=== PATIENT | male | born 1975 | race Caucasian/White ===

== ENCOUNTER 2021-03-31 03:53 | Inpatient (IN) | payer OTHER, SELFPAY ==
[2021-03-31] VITALS (9 sets, daily range): BP systolic 127–190; BP diastolic 77–90; PULSE 67–100; RESP 15–20; TEMP 36.1–38.4; O2SAT 97–100; BMI 27.3
--- NOTE | 2021-03-31 | ECG_ITS ---
Test Reason : SOB Blood Pressure : / mmHG Vent. Rate : 093 BPM Atrial Rate : 093 BPM P-R Int : 130 ms QRS Dur : 082 ms QT Int : 468 ms P-R-T Axes : -17 -65 022 degrees QTc Int : 581 ms Normal sinus rhythm Left axis deviation Septal infarct , age undetermined Inferior infarct , age undetermined Prolonged QT Abnormal ECG No previous ECGs available Referred By: Generic ED Physician Electronically Signed By:EFRAIN WOODWARD
--- NOTE | ~2021-03-31 | CT_ITS ---
EXAMINATION CT CHEST, ABDOMEN AND PELVIS WITHOUT CONTRAST CLINICAL INFORMATION: Shortness of breath and abdominal pain. Approximately 2-3 months of subjective fevers and malaise. COMPARISON: None. TECHNIQUE: Multidetector volumetric CT imaging of the chest, abdomen and pelvis was performed without the use of intravenous contrast. Coronal and sagittal reformats were reviewed. This CT examination was performed using dose optimization techniques as appropriate, variously including the following: *Automated exposure control *Adjustment of mA and/or kV according to patient size (this includes techniques or standardized protocols for targeted exams where dose is matched to indication/reason for exam; i.e. extremities or head) *Use of iterative reconstruction technique DLP: 840 mGy-cm. FINDINGS: CHEST LUNGS/PLEURA: There is a large cavitary process within the right upper lobe, subpleural in location measuring approximately 6.2 x 3.7 x 3.2 cm. There is surrounding patchy groundglass opacity. There is diffuse mild bronchial wall thickening, most pronounced within the right upper lobe leading up to the cavitary process with scattered endobronchial secretions. Remainder of the lungs clear. There is no pleural effusion. No pneumothorax. MEDIASTINUM/AMOL: Right hilar lymphadenopathy present measuring up to 1 cm short axis. Small mediastinal lymph nodes do not size criteria for enlargement. Normal heart size. No pericardial effusion. CHEST WALL/AXILLA: Unremarkable. ABDOMEN/PELVIS HEPATOBILIARY: Liver normal in size, contour and morphology. No suspicious lesions. No intra or extrahepatic biliary dilation. Gallbladder unremarkable. PANCREAS: Atrophic. Mild fat stranding within the retroperitoneum does not appear to be specific to the pancreas. SPLEEN: Unremarkable. ADRENAL GLANDS: Unremarkable. KIDNEYS, URETERS AND BLADDER: Kidneys normal in size, axis and morphology demonstrating symmetric enhancement. No hydronephrosis or urinary calculi. Mild bilateral perinephric stranding, nonspecific. Ureters normal in course and caliber. Bladder grossly unremarkable.. GASTROINTESTINAL TRACT: No bowel related abnormalities. PELVIC VISCERA: Unremarkable. LYMPH NODES: No lymphadenopathy. PERITONEUM/BODY WALL: Unremarkable. VASCULAR STRUCTURES: Aorta is mildly atherosclerotic. OSSEOUS STRUCTURES No acute or suspicious osseous abnormalities. Bilateral L5 spondylolysis associated with grade 1 anterolisthesis of L5 on S1 and severe discogenic degenerative disease with endplate sclerosis and vacuum disc phenomenon, the latter showing high negative predictive value for spondylodiscitis. CT/CT abdomen pelvis wo con IMPRESSION: * Large cavitary process within right upper lobe, suspected to be infectious in nature. Fungal etiologies, and certain bacterial infections (eg actinomycosis, nocardiosis, tuberculosis) can have this appearance. Malignancy is considered less likely. Right hilar adenopathy favored reactive. * No acute findings within the abdomen or pelvis. * Nonspecific mild bilateral perinephric stranding and fat stranding within the retroperitoneum. Per report, the patient may be in renal failure which could lead to these findings. Also, correlate with lipase is the possibility of mild pancreatitis is also considered. This result was discussed with Divina Dinh MD at 03/31/2021 6:10AM and it was ascertained that the content and urgency of the report was understood at the time of direct communication.
--- NOTE | ~2021-03-31 | XR_ITS ---
EXAMINATION: XR CHEST CLINICAL INFORMATION: Status post bronchial biopsy COMPARISON: CT scan and plain film studies of March 31, 2021 TECHNIQUE: AP portable view of the chest was obtained. FINDINGS: There is again noted to be region of airspace disease about the mid peripheral right lung as well some loss of lung volume and atelectasis within the lower right lung. No pneumothorax or significant pleural effusion appreciated. Left hemithorax unremarkable. Heart normal size. No evidence of pulmonary edema. XR/XR chest 1V IMPRESSION: Right lung disease as described. No pneumothorax.
--- NOTE | ~2021-03-31 | XR_ITS ---
EXAMINATION: XR CHEST CLINICAL INFORMATION: Chest pain COMPARISON: None available TECHNIQUE: Frontal view of the chest was obtained. FINDINGS: Patchy opacity within the periphery of the right midlung. Left lung clear. No pleural effusion or pneumothorax. Normal heart size and pulmonary vascularity. XR/XR chest 1V IMPRESSION: Nonspecific opacity within the periphery of the right midlung. Considerations include pneumonia, atypical or granulomatous infectious/inflammatory process, mass or pulmonary infarct A CT examination is pending at the time of this dictation.
[2021-03-31 04:04] LABS: Glucose, Whole Blood 425 mg/dL (60-115)
--- NOTE | 2021-03-31 04:17 | ED_ITS ---
HPI - SOB/Dyspnea General Chief Complaint: Dyspnea Stated Complaint: sob,hypergglycemia,and cough Time Seen by Provider: 03/31/21 04:07 Source: patient Mode of arrival: EMS History of Present Illness HPI Narrative: 45-year-old male arrives via EMS with significantly worsening and progressive worsening of shortness of breath for ?months?, he was started on antibiotics for a ?lung infection? but cannot recall without medication was. In addition, patient reports cough of greenish/yellowish sputum and significant pain on coughing. Otherwise, patient denies any GI or symptoms. Related Data Home Medications Medication Instructions Recorded Confirmed amlodipine 5 mg tablet 1 tab PO DAILY 03/31/21 03/31/21 aspirin 81 mg tablet,delayed 1 tab PO DAILY 03/31/21 03/31/21 release cyclosporine 0.05 % eye drops in a 1 drp OPHTHALMIC (EYE) BID 03/31/21 03/31/21 dropperette (Restasis) gabapentin 300 mg capsule 1 cap PO DAILY 03/31/21 03/31/21 gabapentin 600 mg tablet 1 tab PO BID 03/31/21 03/31/21 insulin aspart U-100 100 unit/mL SUBCUT 03/31/21 (3 mL) subcutaneous pen (Novolog Flexpen U-100 Insulin aspart) insulin glargine 100 unit/mL (3 30 unit SUBCUT BEDTIME 03/31/21 03/31/21 mL) subcutaneous pen (Lantus Solostar U-100 Insulin) lisinopril 20 1 tab PO DAILY 03/31/21 03/31/21 mg-hydrochlorothiazide 25 mg tablet omeprazole 20 mg capsule,delayed 1 cap PO QAM 03/31/21 03/31/21 release Allergies Allergy/AdvReac Type Severity Reaction Status Date / Time No Known Allergies Allergy Verified 03/31/21 04:00 Review of Systems Review of Systems: Pertinent positives and negatives as stated in HPI 10 point review of systems is otherwise negative. [facility] Past Medical History Source: nursing notes reviewed Social History Social History Advance Directives: No Physical Exam Vital Signs: Vital Signs: Last Vital Signs Temp 101.2 F H 03/31/21 04:03 Pulse 88 03/31/21 04:32 Resp 20 03/31/21 04:32 BP 166/87 H 03/31/21 04:32 Pulse Ox 99 03/31/21 04:32 BMI result Body Mass Index 27.3 VITAL SIGNS: Reviewed. GENERAL: Well developed, in moderate to severe distress. HEAD: Normocephalic/atraumatic EYES: PERRLA, EOMI OROPHARYNX: no oral lesions noted, posterior pharynx clear LUNGS: Bilateral decreased breath sounds, no expiratory wheeze noted or rales, but patient is tachypneic and unable to complete entire sentences. SpO2<98> CARDIOVASCULAR: Regular rate and rhythm without noted murmurs, no JVD or lower extremity edema. ABDOMEN: Soft, non-tender, non-distended with bowel sounds. SKIN: Inspection of the skin reveals no rashes NEUROLOGIC: Alert and oriented x 4. Strength and sensation to light touch were grossly intact x 4. Course Course Course Narrative: 45-year-old male with history and clinical presentation concerning for possible bilateral pneumonia with pleural effusion or possible pulmonary edema. Although patient is hyperglycemic this is likely in response to underlying infection. Review of all investigations demonstrates possible combination of pneumonia and concerns for endocarditis due to duration and length of patient's symptoms with concomitant fevers, chills. Patient being treated with IV fluids and no evidence of DKA or HHS, but patient also has hypokalemia as well as hypo magnesemia and denies any history of IVDA use. I discussed this case with the inpatient hospitalist who accepts admission. MDM - SOB/Dyspnea Lab Data Result diagrams: 03/31/21 04:12 03/31/21 04:12 Labs: Lab Results 03/31/21 03/31/21 03/31/21 Range/Units 04:00 04:12 04:12 WBC 10.2 (4.8-10.8) X10*3/uL RBC 3.85 L (4.60-5.80) X10*6/uL Hgb 10.5 L (14.0-18.0) g/dl Hct 31.4 L (42.0-52.0) % MCV 81.6 (80.0-98.0) fL MCH 27.3 (27.0-33.0) pg MCHC 33.4 (31.0-36.0) g/dl RDW 14.4 (11.0-16.0) % Plt Count 212 (160-400) X10*3/uL MPV 10.3 (9.4-12.4) fL Immature Gran % (Auto) 0.3 (0.0-0.4) % Neut % (Auto) 79.8 H (45-73) % Lymph % (Auto) 12.3 L (20-40) % [place] % (Auto) 6.1 (2-11) % Eos % (Auto) 1.1 (0-4) % Baso % (Auto) 0.4 (0-2) % Lymph # (Auto) 1.3 (1.2-4.9) X10*3/uL [place] # (Auto) 0.6 (0.1-1.2) X10*3/uL Eos # (Auto) 0.1 (0.0-0.4) X10*3/uL Baso # (Auto) 0.0 (0.0-0.2) X10*3/uL Abs Immat Gran (auto) 0.03 (0.00-0.03) X10*3/uL Absolute Neuts (auto) 8.2 (2.0-8.3) x10*3/uL Absolute Nucleated RBC 0.000 (0.0-0.012) X10*3/uL Nucleated RBC % (auto) 0.0 (0.0-0.2) /100WBC D-Dimer High Sensitivty NG/ML VBG pH (7.32-7.43) VBG pCO2 mmHg VBG pO2 mmHg VBG HCO3 (22-26) mmol/L VBG O2 Saturation % VBG Base Excess mmol/L Sodium 133 L (135-145) mmol/L Potassium 3.1 L (3.3-5.1) mmol/L Chloride 94 L (96-108) mmol/L Carbon Dioxide 28 (22-29) mmol/L Anion Gap 14 (12-20) BUN 25 H (9-16) mg/dL Creatinine 1.46 H (0.5-1.4) mg/dL Estim Creat Clear Calc 61.1 Estimated GFR 52 POC Glucose 425 H* (60-115) mg/dL Random Glucose 441 H* (60-115) mg/dL Lactic Acid (0.5-2.0) mmol/L Calcium 7.9 L (8.4-10.2) mg/dL Magnesium 1.3 L* (1.6-2.6) mg/dL Total Bilirubin 0.7 (0.0-1.0) mg/dL AST 7 (5-37) U/L ALT < 6 (0-40) U/L Alkaline Phosphatase 171 H (39-117) U/L Troponin I High Sens (<3.5-35.0) ng/L B-Natriuretic Peptide (<100) pg/mL Total Protein 6.2 L (6.5-8.0) g/dL Albumin 2.8 L (3.5-5.0) g/dL Acetone, Qual Negative (Negative) COVID-19 (ANA M) (Negative) COVID-19 Clin Com 03/31/21 03/31/21 03/31/21 Range/Units 04:12 04:12 04:12 WBC (4.8-10.8) X10*3/uL RBC (4.60-5.80) X10*6/uL Hgb (14.0-18.0) g/dl Hct (42.0-52.0) % MCV (80.0-98.0) fL MCH (27.0-33.0) pg MCHC (31.0-36.0) g/dl RDW (11.0-16.0) % Plt Count (160-400) X10*3/uL MPV (9.4-12.4) fL Immature Gran % (Auto) (0.0-0.4) % Neut % (Auto) (45-73) % Lymph % (Auto) (20-40) % [place] % (Auto) (2-11) % Eos % (Auto) (0-4) % Baso % (Auto) (0-2) % Lymph # (Auto) (1.2-4.9) X10*3/uL [place] # (Auto) (0.1-1.2) X10*3/uL Eos # (Auto) (0.0-0.4) X10*3/uL Baso # (Auto) (0.0-0.2) X10*3/uL Abs Immat Gran (auto) (0.00-0.03) X10*3/uL Absolute Neuts (auto) (2.0-8.3) x10*3/uL Absolute Nucleated RBC (0.0-0.012) X10*3/uL Nucleated RBC % (auto) (0.0-0.2) /100WBC D-Dimer High Sensitivty < 150 NG/ML VBG pH (7.32-7.43) VBG pCO2 mmHg VBG pO2 mmHg VBG HCO3 (22-26) mmol/L VBG O2 Saturation % VBG Base Excess mmol/L Sodium (135-145) mmol/L Potassium (3.3-5.1) mmol/L Chloride (96-108) mmol/L Carbon Dioxide (22-29) mmol/L Anion Gap (12-20) BUN (9-16) mg/dL Creatinine (0.5-1.4) mg/dL Estim Creat Clear Calc Estimated GFR POC Glucose (60-115) mg/dL Random Glucose (60-115) mg/dL Lactic Acid (0.5-2.0) mmol/L Calcium (8.4-10.2) mg/dL Magnesium (1.6-2.6) mg/dL Total Bilirubin (0.0-1.0) mg/dL AST (5-37) U/L ALT (0-40) U/L Alkaline Phosphatase (39-117) U/L Troponin I High Sens 14.5 (<3.5-35.0) ng/L B-Natriuretic Peptide 42 (<100) pg/mL Total Protein (6.5-8.0) g/dL Albumin (3.5-5.0) g/dL Acetone, Qual (Negative) COVID-19 (ANA M) Negative (Negative) COVID-19 Clin Com See Note 03/31/21 03/31/21 Range/Units 04:12 04:17 WBC (4.8-10.8) X10*3/uL RBC (4.60-5.80) X10*6/uL Hgb (14.0-18.0) g/dl Hct (42.0-52.0) % MCV (80.0-98.0) fL MCH (27.0-33.0) pg MCHC (31.0-36.0) g/dl RDW (11.0-16.0) % Plt Count (160-400) X10*3/uL MPV (9.4-12.4) fL Immature Gran % (Auto) (0.0-0.4) % Neut % (Auto) (45-73) % Lymph % (Auto) (20-40) % [place] % (Auto) (2-11) % Eos % (Auto) (0-4) % Baso % (Auto) (0-2) % Lymph # (Auto) (1.2-4.9) X10*3/uL [place] # (Auto) (0.1-1.2) X10*3/uL Eos # (Auto) (0.0-0.4) X10*3/uL Baso # (Auto) (0.0-0.2) X10*3/uL Abs Immat Gran (auto) (0.00-0.03) X10*3/uL Absolute Neuts (auto) (2.0-8.3) x10*3/uL Absolute Nucleated RBC (0.0-0.012) X10*3/uL Nucleated RBC % (auto) (0.0-0.2) /100WBC D-Dimer High Sensitivty NG/ML VBG pH 7.60 H* (7.32-7.43) VBG pCO2 26 mmHg VBG pO2 127 mmHg VBG HCO3 26 (22-26) mmol/L VBG O2 Saturation 100.0 % VBG Base Excess 5.6 mmol/L Sodium (135-145) mmol/L Potassium (3.3-5.1) mmol/L Chloride (96-108) mmol/L Carbon Dioxide (22-29) mmol/L Anion Gap (12-20) BUN (9-16) mg/dL Creatinine (0.5-1.4) mg/dL Estim Creat Clear Calc Estimated GFR POC Glucose (60-115) mg/dL Random Glucose (60-115) mg/dL Lactic Acid 1.8 (0.5-2.0) mmol/L Calcium (8.4-10.2) mg/dL Magnesium (1.6-2.6) mg/dL Total Bilirubin (0.0-1.0) mg/dL AST (5-37) U/L ALT (0-40) U/L Alkaline Phosphatase (39-117) U/L Troponin I High Sens (<3.5-35.0) ng/L B-Natriuretic Peptide (<100) pg/mL Total Protein (6.5-8.0) g/dL Albumin (3.5-5.0) g/dL Acetone, Qual (Negative) COVID-19 (ANA M) (Negative) COVID-19 Clin Com ECG Data Attestation: I personally reviewed and interpreted this ECG as follows: Prior ECG tracings: not available for review Interpretation: NSR, HR-93, noted Q-waves in lead II/aVF, no STEMI, MA/QRS are within normal limits Critical Care Time Critical Care Time Critical Care Time: Yes Total Critical Care Time: 30 Attestation: I personally attest to this time spent taking care of the patient. Discharge Plan Discharge Clinical Impression: Sepsis, Hyperglycemia, NEELA (acute kidney injury), Hypomagnesemia, Hypokalemia Patient Disposition: Admitted As Inpatient
[2021-03-31 04:20] LABS: Basophils Percent Auto 0.4 % (0-2); Eosinophils Absolute Auto 0.1 X10*3/uL (0.0-0.4); Eosinophils Percent Auto 1.1 % (0-4); Hematocrit 31.4 % (42.0-52.0); Hemoglobin 10.5 g/dl (14.0-18.0); Imm Gran Abs Auto 0.03 X10*3/uL (0.00-0.03); Imm Gran Pct Auto 0.3 % (0.0-0.4); Lymphocytes Absolute Auto 1.3 X10*3/uL (1.2-4.9); Lymphocytes Percent Auto 12.3 % (20-40); MANUAL DIFF FLAG NO; Mean Corpuscular HGB Conc 33.4 g/dl (31.0-36.0); Mean Corpuscular Hemoglobin 27.3 pg (27.0-33.0); Mean Corpuscular Volume 81.6 fL (80.0-98.0); Mean Platelet Volume 10.3 fL (9.4-12.4); Monocytes Absolute Auto 0.6 X10*3/uL (0.1-1.2); Monocytes Percent Auto 6.1 % (2-11); Neutrophils Absolute Auto 8.2 x10*3/uL (2.0-8.3); Neutrophils Percent Auto 79.8 % (45-73); Platelet Count 212 X10*3/uL (160-400); Red Blood Count 3.85 X10*6/uL (4.60-5.80); Red Cell Distribution Width 14.4 % (11.0-16.0); White Blood Count 10.2 X10*3/uL (4.8-10.8)
[2021-03-31] MEDS: 0.9 % Sodium Chloride 2,000 ML 999 ML IV (04:23)
[2021-03-31] MEDS: Acetaminophen 325 MG TABLET 975 MG PO (04:24)
--- NOTE | 2021-03-31 04:24 | ECG_ITS ---
Test Reason : CP Blood Pressure : / mmHG Vent. Rate : 086 BPM Atrial Rate : 086 BPM P-R Int : 160 ms QRS Dur : 088 ms QT Int : 420 ms P-R-T Axes : 018 -33 027 degrees QTc Int : 503 ms Normal sinus rhythm Left axis deviation Septal infarct (cited on or before 31-MAR-2021) Inferior infarct (cited on or before 31-MAR-2021) Prolonged QTc- difficult to calculate interval exactly Abnormal ECG When compared with ECG of 31-MAR-2021 04:02, No significant changes seen Referred By: Divina Dinh Electronically Signed By:EFRAIN WOODWARD
[2021-03-31 04:26] LABS: VBG Base Excess 5.6 mmol/L; VBG HCO3 26 mmol/L (22-26); VBG pCO2 26 mmHg; VBG pO2 127 mmHg
[2021-03-31 04:27] LABS: Venous Blood Gas Refer to POC result
[2021-03-31 04:29] LABS: Acetone, serum QL Negative (Negative); D Dimer High Sensitivity < 150 NG/ML
[2021-03-31 04:30] LABS: Lactic Acid 1.8 mmol/L (0.5-2.0)
[2021-03-31 04:33] LABS: COVID-19 Test Negative (Negative)
[2021-03-31 04:40] LABS: Alanine Aminotransferase < 6 U/L (0-40); Albumin Level 2.8 g/dL (3.5-5.0); Alkaline Phosphatase 171 U/L (39-117); Anion Gap 14 (12-20); Aspartate Amino Transferase 7 U/L (5-37); B Type Natriuretic Peptide 42 pg/mL (<100); Bilirubin Total 0.7 mg/dL (0.0-1.0); Blood Urea Nitrogen 25 mg/dL (9-16); Calcium 7.9 mg/dL (8.4-10.2); Carbon Dioxide 28 mmol/L (22-29); Chloride 94 mmol/L (96-108); Creatinine Clr Calc Pharmacy 61.1; Estimated Glomerular Filt Rate 52; Glucose Random 441 mg/dL (60-115); Potassium 3.1 mmol/L (3.3-5.1); Sodium 133 mmol/L (135-145); Total Protein 6.2 g/dL (6.5-8.0); Troponin-I High Sensitivity 14.5 ng/L (<3.5-35.0)
--- NOTE | 2021-03-31 04:47 | PC.NURSE ---
Per Dr Dinh, hold zosyn at this time as provider is going to change abx orders.
[2021-03-31] MEDS: Ketorolac Tromethamine 30 MG/ML VIAL 15 MG IVPUSH (05:12)
[2021-03-31] MEDS: Piperacillin Sodium/Tazobactam 3.375 GM in 0.9 % Sodium Chloride 50 ML IV (05:13)
[2021-03-31 05:17] LABS: Magnesium 1.3 mg/dL (1.6-2.6)
[2021-03-31 05:46] LABS: Glucose, Whole Blood 392 mg/dL (60-115)
[2021-03-31] MEDS: Magnesium Sulfate/D5W 1 GM/100 ML PIGGYBACK IV (05:58)
[2021-03-31 06:04] LABS: ABG Refer to POC result
[2021-03-31 06:05] LABS: ABG Base Excess 2.9 mmol/L; ABG HCO3 26 mmol/L (22-26); ABG pCO2 35 mmHg (32-45); ABG pH 7.47 (7.35-7.45); ABG pO2 96 mmHg (83-108)
[2021-03-31] MEDS: vancomycin HCL 1,000 MG in 0.9 % Sodium Chloride 250 ML 270 MG IV (06:11)
[2021-03-31] MEDS: Insulin Lispro 100 UNIT/ML 3 ML VIAL SUBCUT ×4 (06:18→21:23)
[2021-03-31 06:42] LABS: Lipase 18 U/L (8-78)
--- NOTE | 2021-03-31 06:43 | PC.NURSE ---
Pharmacy contacted this RN to notify that pt's initial dose of 1g vanco was underdosed for pt's stated weight. Pharm to order additional 750mg to be infused following this dose. Pt to have dose of 1750mg q12h moving forward. This RN to relay message to oncoming RN.
--- NOTE | 2021-03-31 06:48 | P.HPHOSP_ITS ---
History of Present Illness Date of Service: 03/31/21 Chief Complaint: cough 45M presented with complaints of feeling unwell for about 1 month. Patient is a vague historian, but states he has been feeling unwell. He reports productive cough with yellow sputum, fevers, chills, weight loss. He states that it he was treated with antibiotics at 1 point, does not remember which antibiotics or exact duration, but did start to feel better, but afterwards symptoms quickly resumed. Patient return to ED at this point because he is fed up with his symptoms. In ED he was found to be septic with fever and tachycardia. CT chest showed right upper lobe cavitary lesion consistent with Infection. He was also noted to have acute kidney injury with creatinine 1.46, hypokalemia and hypomagnesemia and anemia. Patient denies any drug use. He does report moderate alcohol use, says he drinks A few nips and 1-2 six-packs of beer approximately weekly. Review of Systems Review of Systems: Constitutional: Fevers, chills, weight loss Eyes: denies blurry vision ENT: denies sore throat CVS: Chest pain when coughing Respiratory: Denies dyspnea GI: no abdominal pain : denies dysuria MSK: denies neck pain Skin: denies rash Neuro: denies specific motor weakness Psych: denies suicidal ideation Endocrine: denies heat/cold intolerance Hematologic: denies easy bleeding Allergy: denies hives [facility] Medical History (Updated 03/31/21 @ 06:54 by Vernon Valencia MD) Diabetes HTN (hypertension) Leukemia Family History Father Diabetes mellitus Social History Alcohol intake: current Patient Tobacco Use Status: Never used Tobacco Use of substances other than those prescribed or required for medical reasons: No Advance Directives: No Meds Allergies Allergy/AdvReac Type Severity Reaction Status Date / Time No Known Allergies Allergy Verified 03/31/21 04:00 Active Medications: Current Medications Amlodipine Besylate (Amlodipine Besylate 5 Mg Tablet) 5 mg PO DAILY OFELIA; Protocol Aspirin (Aspirin Enteric Coated 81 Mg Tablet.) 81 mg PO DAILY OFELIA Dextrose (Dextrose 50 % 25 Gm/50 Ml Syringe) 25 gm IVPUSH Q15M PRN; Protocol PRN Reason: per Hypoglycemia Standing Ord. Gabapentin (Gabapentin 600 Mg Tablet) 600 mg PO BID [facility] Gabapentin (Gabapentin 300 Mg Capsule) 300 mg PO DAILY [facility] Glucose (Glucose Gel 15 Gm Gel..Gram.) 15 gm PO Q15M PRN; Protocol PRN Reason: per Hypoglycemia Standing Ord. Potassium Chloride () 10 meq in 100 mls @ 100 mls/hr IV Q1H [facility] Stop: 03/31/21 06:59 Vancomycin HCl 750 mg/ Sodium (Chloride) 265 mls @ 265 mls/hr IV Q12H [facility] Ampicillin Sodium/Sulbactam (Sodium 3 gm/ Sodium Chloride) 100 mls @ 200 mls/hr IV Q6H [facility] Insulin Glargine (Insulin Glargine,Hum.Rec.Anlog 100 Unit/Ml 10 Ml Vial) 30 unit SUBCUT BEDTIME [facility] Insulin Human Lispro (Insulin Lispro 100 Unit/Ml 3 Ml Vial) 0.1 - 10 unit SUBCUT QIDACHS [facility]; Protocol Non-Formulary Medication (Cyclosporine [Restasis]) 1 drop EYE-BOTH BID [facility] Omeprazole (Omeprazole 20 Mg Capsule.Dr) 20 mg PO QAM [facility] Pharmacy Consult (Consult Rx Vancomycin Dosing) 1 each MISCELLANE DAILY PRN PRN Reason: Consult order Home Medications Medication Instructions Recorded Confirmed Last Taken Type amlodipine 5 mg tablet 1 tab PO DAILY 03/31/21 03/31/21 Unknown History aspirin 81 mg tablet,delayed 1 tab PO DAILY 03/31/21 03/31/21 Unknown History release cyclosporine 0.05 % eye drops in a 1 drp OPHTHALMIC (EYE) BID 03/31/21 03/31/21 Unknown History dropperette (Restasis) gabapentin 300 mg capsule 1 cap PO DAILY 03/31/21 03/31/21 Unknown History gabapentin 600 mg tablet 1 tab PO BID 03/31/21 03/31/21 Unknown History insulin aspart U-100 100 unit/mL SUBCUT 03/31/21 Unknown History (3 mL) subcutaneous pen (Novolog Flexpen U-100 Insulin aspart) insulin glargine 100 unit/mL (3 30 unit SUBCUT BEDTIME 03/31/21 03/31/21 Unknown History mL) subcutaneous pen (Lantus Solostar U-100 Insulin) lisinopril 20 1 tab PO DAILY 03/31/21 03/31/21 Unknown History mg-hydrochlorothiazide 25 mg tablet omeprazole 20 mg capsule,delayed 1 cap PO QAM 03/31/21 03/31/21 Unknown History release Physical Exam Vital Signs and Narrative: Vital Signs: Last Vital Signs Temp 99.5 F 03/31/21 05:40 Pulse 89 03/31/21 05:50 Resp 17 03/31/21 05:50 BP 147/83 H 03/31/21 05:50 Pulse Ox 97 03/31/21 05:50 BMI result Body Mass Index 27.3 General: no acute distress HEENT: atraumatic Neck: normal to visual inspection CVS: S1, S2, RRR Resp: CTA bilateral Chest: non tender GI: soft, non tender, non distended : no CVA tenderness Skin: no rashes Extremities: no edema Neuro: Oriented X3, grossly intact Psych: cooperative Results Labs CBC and Chem 7: 03/31/21 04:12 03/31/21 04:12 Labs: Laboratory Results - last 24 hr 03/31/21 03/31/21 03/31/21 04:00 04:12 04:12 MCV 81.6 MCH 27.3 MCHC 33.4 RDW 14.4 Plt Count 212 MPV 10.3 Immature Gran % (Auto) 0.3 Neut % (Auto) 79.8 H Lymph % (Auto) 12.3 L [place] % (Auto) 6.1 Eos % (Auto) 1.1 Baso % (Auto) 0.4 Lymph # (Auto) 1.3 [place] # (Auto) 0.6 Eos # (Auto) 0.1 Baso # (Auto) 0.0 Abs Immat Gran (auto) 0.03 Absolute Neuts (auto) 8.2 Absolute Nucleated RBC 0.000 Nucleated RBC % (auto) 0.0 D-Dimer High Sensitivty O2 Saturation ABG pH at Pt Temp ABG pCO2 at Pt Temp ABG pO2 at Pt Temp ABG HCO3 ABG Base Excess (Actual) VBG pH VBG pCO2 VBG pO2 VBG HCO3 VBG O2 Saturation VBG Base Excess Anion Gap 14 Estim Creat Clear Calc 61.1 Estimated GFR 52 POC Glucose 425 H* Random Glucose 441 H* Lactic Acid Calcium 7.9 L Magnesium 1.3 L* Total Bilirubin 0.7 AST 7 ALT < 6 Alkaline Phosphatase 171 H B-Natriuretic Peptide Total Protein 6.2 L Albumin 2.8 L Lipase 18 Acetone, Qual Negative COVID-19 (ANA M) COVID-[employer] 03/31/21 03/31/21 03/31/21 04:12 04:12 04:12 MCV MCH MCHC RDW Plt Count MPV Immature Gran % (Auto) Neut % (Auto) Lymph % (Auto) [place] % (Auto) Eos % (Auto) Baso % (Auto) Lymph # (Auto) [place] # (Auto) Eos # (Auto) Baso # (Auto) Abs Immat Gran (auto) Absolute Neuts (auto) Absolute Nucleated RBC Nucleated RBC % (auto) D-Dimer High Sensitivty < 150 O2 Saturation ABG pH at Pt Temp ABG pCO2 at Pt Temp ABG pO2 at Pt Temp ABG HCO3 ABG Base Excess (Actual) VBG pH VBG pCO2 VBG pO2 VBG HCO3 VBG O2 Saturation VBG Base Excess Anion Gap Estim Creat Clear Calc Estimated GFR POC Glucose Random Glucose Lactic Acid Calcium Magnesium Total Bilirubin AST ALT Alkaline Phosphatase B-Natriuretic Peptide 42 Total Protein Albumin Lipase Acetone, Qual COVID-19 (ANA M) Negative [id number] See Note 03/31/21 03/31/21 03/31/21 04:12 04:17 05:40 MCV MCH MCHC RDW Plt Count MPV Immature Gran % (Auto) Neut % (Auto) Lymph % (Auto) [place] % (Auto) Eos % (Auto) Baso % (Auto) Lymph # (Auto) [place] # (Auto) Eos # (Auto) Baso # (Auto) Abs Immat Gran (auto) Absolute Neuts (auto) Absolute Nucleated RBC Nucleated RBC % (auto) D-Dimer High Sensitivty O2 Saturation ABG pH at Pt Temp ABG pCO2 at Pt Temp ABG pO2 at Pt Temp ABG HCO3 ABG Base Excess (Actual) VBG pH 7.60 H* VBG pCO2 26 VBG pO2 127 VBG HCO3 26 VBG O2 Saturation 100.0 VBG Base Excess 5.6 Anion Gap Estim Creat Clear Calc Estimated GFR POC Glucose 392 H* Random Glucose Lactic Acid 1.8 Calcium Magnesium Total Bilirubin AST ALT Alkaline Phosphatase B-Natriuretic Peptide Total Protein Albumin Lipase Acetone, Qual COVID-19 (ANA M) [id number]-[employer] Com 03/31/21 05:58 MCV MCH MCHC RDW Plt Count MPV Immature Gran % (Auto) Neut % (Auto) Lymph % (Auto) [place] % (Auto) Eos % (Auto) Baso % (Auto) Lymph # (Auto) [place] # (Auto) Eos # (Auto) Baso # (Auto) Abs Immat Gran (auto) Absolute Neuts (auto) Absolute Nucleated RBC Nucleated RBC % (auto) D-Dimer High Sensitivty O2 Saturation 97.0 ABG pH at Pt Temp 7.47 H ABG pCO2 at Pt Temp 35 ABG pO2 at Pt Temp 96 ABG HCO3 26 ABG Base Excess (Actual) 2.9 VBG pH VBG pCO2 VBG pO2 VBG HCO3 VBG O2 Saturation VBG Base Excess Anion Gap Estim Creat Clear Calc Estimated GFR POC Glucose Random Glucose Lactic Acid Calcium Magnesium Total Bilirubin AST ALT Alkaline Phosphatase B-Natriuretic Peptide Total Protein Albumin Lipase Acetone, Qual COVID-19 (ANA M) COVID-19 Clin Com Imaging Radiologist's Impressions: Impressions Chest X-Ray 03/31/21 04:22 IMPRESSION: Nonspecific opacity within the periphery of the right midlung. Considerations include pneumonia, atypical or granulomatous infectious/inflammatory process, mass or pulmonary infarct A CT examination is pending at the time of this dictation. Abdomen/Pelvis CT 03/31/21 05:25 IMPRESSION: * Large cavitary process within right upper lobe, suspected to be infectious in nature. Fungal etiologies, and certain bacterial infections (eg actinomycosis, nocardiosis, tuberculosis) can have this appearance. Malignancy is considered less likely. Right hilar adenopathy favored reactive. * No acute findings within the abdomen or pelvis. * Nonspecific mild bilateral perinephric stranding and fat stranding within the retroperitoneum. Per report, the patient may be in renal failure which could lead to these findings. Also, correlate with lipase is the possibility of mild pancreatitis is also considered. This result was discussed with Divina Dinh MD at 03/31/2021 6:10AM and it was ascertained that the content and urgency of the report was understood at the time of direct communication. Chest CT 03/31/21 05:25 IMPRESSION: * Large cavitary process within right upper lobe, suspected to be infectious in nature. Fungal etiologies, and certain bacterial infections (eg actinomycosis, nocardiosis, tuberculosis) can have this appearance. Malignancy is considered less likely. Right hilar adenopathy favored reactive. * No acute findings within the abdomen or pelvis. * Nonspecific mild bilateral perinephric stranding and fat stranding within the retroperitoneum. Per report, the patient may be in renal failure which could lead to these findings. Also, correlate with lipase is the possibility of mild pancreatitis is also considered. This result was discussed with Divina Dinh MD at 03/31/2021 6:10AM and it was ascertained that the content and urgency of the report was understood at the time of direct communication. Assessment and Plan (1) Sepsis: Status: Acute Plan 45-year-old male presented with cough, found to be septic with acute kidney injury Sepsis due to right upper lobe cavitary pneumonia Suspect bacterial, Possibly aspiration inpatient with moderate alcohol use IV Unasyn Id eval Follow-up cultures Acute kidney injury Presumed, unknown baseline Hold lisinopril Monitor Diabetes with hyperglycemia Basal bolus insulin Hypokalemia and hypomagnesemia Replace and monitor Anemia Likely inflammatory with ongoing infection Monitor DVT prophylaxis with Lovenox Full code Quality Stroke Does the patient have a stroke diagnosis?: No VTE Prior VTE?: No VTE Risk Level:: Medical - moderate - high VTE Device Contraindication: Treatment Not Indicated VTE Drug Contraindication: N/A - Med Ordered
[2021-03-31 07:10] LABS: Glucose, Whole Blood 432 mg/dL (60-115)
--- NOTE | 2021-03-31 08:00 | PHA.MEDREC ---
Pharmacy Consult ? Medication Reconciliation Pharmacy has completed the medication reconciliation. Char EsquivelD
[2021-03-31] MEDS: Potassium Chloride/H20 10 MEQ/100 ML PIGGYBACK 100 MEQ IV ×2 (08:21→11:23)
[2021-03-31] MEDS: Omeprazole 20 MG CAPSULE.DR PO (08:21)
[2021-03-31] MEDS: Enoxaparin Sodium 40 MG/0.4 ML SYRINGE SUBCUT (08:21)
[2021-03-31] MEDS: 0.9 % Sodium Chloride Flush 3 ML SYRINGE IVFLUSH ×3 (08:22→23:36)
--- NOTE | 2021-03-31 09:28 | PC.NURSE ---
out of bed to bathroom. ambulates steadily. disconnected and reconnected to potassium IV infusion. Ice pack applied to arm for comfort for burning sensation from infusion.
[2021-03-31 09:35] LABS: Glucose, Whole Blood 385 mg/dL (60-115)
--- NOTE | 2021-03-31 10:46 | PC.NURSE ---
pt arriving to overflow unit. no meds hanging at this time. 0600 meds and on still needing to be given to pt. pt resting comfortably in bed at this time requesting ice water and it was given.
[2021-03-31] MEDS: Ampicillin Sodium/Sulbactam Na 3 GM in 0.9 % Sodium Chloride 100 ML IV ×3 (11:19→23:36)
[2021-03-31] MEDS: Gabapentin 600 MG TABLET PO ×2 (11:21→21:26)
[2021-03-31] MEDS: amLODIPine Besylate 5 MG TABLET PO (11:21)
[2021-03-31] MEDS: Insulin Lispro 100 UNIT/ML 3 ML VIAL 10 UNIT SUBCUT (11:21)
[2021-03-31] MEDS: Aspirin Enteric Coated 81 MG TABLET.DR PO (11:21)
[2021-03-31 12:14] LABS: Glucose, Whole Blood 235 mg/dL (60-115)
[2021-03-31 12:39] LABS: Glucose, Whole Blood 95 mg/dL (60-115)
[2021-03-31] MEDS: Gabapentin 300 MG CAPSULE PO (14:28)
--- NOTE | 2021-03-31 14:33 | MHC.CM.PN ---
PT REPORTS HE LIVES ALONE AND CURRENTLY HAS NO SERVICES PT SAYS FORMERLY [facility] HAS AUTHORIZED 20+ HOURS OR [employer] BUT IT HAS NOT YET STARTED PT REPORTS HE USES A CANE FOR DME PT SAYS HE HAS A HCP COMPLETED. COPY REQUESTED PT SAYS HE DOES NOT KNOW THE NAME OF HIS PCP IT RECENTLY CHANGED, HOWEVER HE GOES TO THE [facility] PT REPORTS BEING [COVID] VACCINATED X 2 (NO BOOSTER) IMM DELIVERED CURRENT DC PLAN IS HOME WITH NO NEW SERVICES PT WILL NEED A CHAIR VAN DUE TO SEVERE BACK PAIN
[2021-03-31 17:18] LABS: Glucose, Whole Blood 273 mg/dL (60-115)
[2021-03-31 20:58] LABS: Glucose, Whole Blood 387 mg/dL (60-115)
[2021-03-31] MEDS: Insulin Glargine,Hum.rec.anlog 100 UNIT/ML 10 ML VIAL 30 UNIT SUBCUT (21:24)
[2021-04-01] VITALS: BP 163/90; PULSE 72; RESP 16; TEMP 36.9; O2SAT 98
--- NOTE | 2021-04-01 00:07 | PC.NURSE ---
This rn took over patient's care at 1900. Patient is alert and oriented x3. Bedtime poc 387, 10 units humalog per sliding scale and 30 units scheduled bedtime lantus. Dr. Gonzales made aware of poc, no additional insulin at this time. Patient denies any pain or discomfort at this time, ambulates to bathroom with steady gait, vss. Call chavez within reach.
[2021-04-01 04:00] VITALS: BP 148/82; RESP 16; TEMP 36.2; O2SAT 95
[2021-04-01] MEDS: Omeprazole 20 MG CAPSULE.DR PO (05:34)
[2021-04-01] MEDS: Ampicillin Sodium/Sulbactam Na 3 GM in 0.9 % Sodium Chloride 100 ML IV ×4 (05:35→23:20)
[2021-04-01 07:15] LABS: Anion Gap 11 (12-20); Blood Urea Nitrogen 17 mg/dL (9-16); Calcium 7.8 mg/dL (8.4-10.2); Carbon Dioxide 28 mmol/L (22-29); Chloride 101 mmol/L (96-108); Creatinine Clr Calc Pharmacy 87.5; Estimated Glomerular Filt Rate > 60; Glucose Fasting 214 mg/dL (60-99); Magnesium 1.6 mg/dL (1.6-2.6); Potassium 3.9 mmol/L (3.3-5.1); Sodium 136 mmol/L (135-145)
[2021-04-01 07:18] LABS: TSH reflex Free T4 2.05 uIU/mL (0.32-4.0)
[2021-04-01 07:48] LABS: Glucose, Whole Blood 192 mg/dL (60-115)
[2021-04-01 08:05] LABS: Hematocrit 29.5 % (42.0-52.0); Hemoglobin 9.7 g/dl (14.0-18.0); Mean Corpuscular HGB Conc 32.9 g/dl (31.0-36.0); Mean Corpuscular Hemoglobin 27.2 pg (27.0-33.0); Mean Corpuscular Volume 82.6 fL (80.0-98.0); Mean Platelet Volume 10.3 fL (9.4-12.4); Platelet Count 182 X10*3/uL (160-400); Red Blood Count 3.57 X10*6/uL (4.60-5.80); Red Cell Distribution Width 14.5 % (11.0-16.0); White Blood Count 4.5 X10*3/uL (4.8-10.8)
[2021-04-01 08:17] VITALS: BP 188/101; PULSE 76; RESP 16; TEMP 36.4; O2SAT 100
[2021-04-01] MEDS: Enoxaparin Sodium 40 MG/0.4 ML SYRINGE SUBCUT (08:18)
[2021-04-01] MEDS: Insulin Lispro 100 UNIT/ML 3 ML VIAL SUBCUT ×4 (08:18→20:18)
[2021-04-01] MEDS: Aspirin Enteric Coated 81 MG TABLET.DR PO (08:19)
[2021-04-01] MEDS: Gabapentin 600 MG TABLET PO ×2 (08:19→20:16)
[2021-04-01] MEDS: amLODIPine Besylate 5 MG TABLET PO (08:19)
--- NOTE | 2021-04-01 08:20 | PC.NURSE ---
Pt received from night time nanny: Pt AOX4 and offers slight complaint of abd pain due to intermittent diarrhea. Noted paleness. Heart sounds normal and lungs clear. Pt abd soft and non-tender. Pt continues to received IV ABT.
[2021-04-01 08:50] LABS: Glucose, Whole Blood 247 mg/dL (60-115)
--- NOTE | 2021-04-01 11:01 | P.PNIM_ITS ---
Subjective Subjective Date of Service: 04/01/21 Interval History: cc: fever, cough interval history: much better today Cardiovascular Cardiovascular: Reports no additional cardiovascular complaints Respiratory Respiratory: Reports no additional respiratory complaints Physical Exam Vital Signs: Vital Signs: Last Vital Signs Temp 97.6 F 04/01/21 08:17 Pulse 76 04/01/21 08:17 Resp 16 04/01/21 08:17 BP 188/101 H 04/01/21 08:17 Pulse Ox 100 04/01/21 08:17 BMI result Body Mass Index 27.3 General: AO X 3, no acute distress Resp: CTA bilateral, no accessory muscles used CVS: S1,S2,RRR GI: soft, non tender, non distended Neuro: motor grossly intact, alert Psych: appropriate affect, appropriate insight Objective Data Active Medications Acetaminophen (Acetaminophen 325 Mg Tablet) 650 mg PO Q6H PRN PRN Reason: Pain, Mild (Pain Scale 1-3) Amlodipine Besylate (Amlodipine Besylate 5 Mg Tablet) 5 mg PO DAILY [facility]; Protocol Last Admin: 04/01/21 08:19 Dose: 5 mg Documented by: GINA Aspirin (Aspirin Enteric Coated 81 Mg Tablet.) 81 mg PO DAILY [facility] Last Admin: 04/01/21 08:19 Dose: 81 mg Documented by: GINA Dextrose (Dextrose 50 % 25 Gm/50 Ml Syringe) 25 gm IVPUSH Q15M PRN; Protocol PRN Reason: per Hypoglycemia Standing Ord. Enoxaparin Sodium (Enoxaparin Sodium 40 Mg/0.4 Ml Syringe) 40 mg SUBCUT Q24H [facility] Last Admin: 04/01/21 08:18 Dose: 40 mg Documented by: GINA Gabapentin (Gabapentin 600 Mg Tablet) 600 mg PO BID [facility] Last Admin: 04/01/21 08:19 Dose: 600 mg Documented by: GINA Gabapentin (Gabapentin 300 Mg Capsule) 300 mg PO DAILY@1200 [facility] Last Admin: 03/31/21 14:28 Dose: 300 mg Documented by: FLORES Glucose (Glucose Gel 15 Gm Gel..Gram.) 15 gm PO Q15M PRN; Protocol PRN Reason: per Hypoglycemia Standing Ord. Ampicillin Sodium/Sulbactam (Sodium 3 gm/ Sodium Chloride) 100 mls @ 200 mls/hr IV Q6H [facility] Last Infusion: 04/01/21 06:10 Dose: 0 mls/hr Documented by: KIMBERASY Insulin Glargine (Insulin Glargine,Hum.Rec.Anlog 100 Unit/Ml 10 Ml Vial) 30 unit SUBCUT BEDTIME [facility] Last Admin: 03/31/21 21:24 Dose: 30 unit Documented by: DARIO Insulin Human Lispro (Insulin Lispro 100 Unit/Ml 3 Ml Vial) 0.1 - 10 unit SUBCUT QIDACHS [facility]; Protocol Last Admin: 04/01/21 08:18 Dose: 2 unit Documented by: GINA Comments: B/S 192 Omeprazole (Omeprazole 20 Mg Capsule.) 20 mg PO DAILY@06 [facility] Last Admin: 04/01/21 05:34 Dose: 20 mg Documented by: DARIO Sodium Chloride (0.9 % Sodium Chloride Flush 3 Ml Syringe) 3 ml IVFLUSH QSHIFT [facility] Last Admin: 04/01/21 10:35 Dose: Not Given Documented by: GINA Non-Admin Reason: IV Running Labs CBC & Chem 7: 04/01/21 07:44 04/01/21 05:54 Labs: Laboratory Results - last 24 hr 03/31/21 03/31/21 03/31/21 11:05 12:35 17:12 MCV MCH MCHC RDW Plt Count MPV Absolute Nucleated RBC Nucleated RBC % (auto) Anion Gap Estim Creat Clear Calc Estimated GFR POC Glucose 235 H 95 273 H Fasting Glucose Calcium Magnesium TSH 03/31/21 04/01/21 04/01/21 20:33 05:54 07:43 MCV MCH MCHC RDW Plt Count MPV Absolute Nucleated RBC Nucleated RBC % (auto) Anion Gap 11 L Estim Creat Clear Calc 87.5 Estimated GFR > 60 POC Glucose 387 H* 192 H Fasting Glucose 214 H Calcium 7.8 L Magnesium 1.6 TSH 2.05 04/01/21 04/01/21 07:44 08:46 MCV 82.6 MCH 27.2 MCHC 32.9 RDW 14.5 Plt Count 182 MPV 10.3 Absolute Nucleated RBC 0.000 Nucleated RBC % (auto) 0.0 Anion Gap Estim Creat Clear Calc Estimated GFR POC Glucose 247 H Fasting Glucose Calcium Magnesium TSH Microbiology Microbiology Results: Microbiology 03/31/21 04:12 Blood Culture - Preliminary Blood - Venous No growth after 24 hours. 03/31/21 04:12 Blood Culture - Preliminary Blood - Venous No growth after 24 hours. Assessment and Plan (1) Sepsis: Status: Acute Plan 45-year-old male presented with cough, found to be septic with acute kidney injury Sepsis due to right upper lobe cavitary pneumonia Suspect bacterial, Possibly aspiration inpatient with moderate alcohol use continue IV Unasyn follow up Id eval Follow-up cultures - no growth in blood so far Acute kidney injury Holding lisinopril creatinine improved from 1.46 to 1.02 Diabetes with hyperglycemia Basal bolus insulin hypomagnesemia Replace and monitor HTN lisinopril on hold continue amlodipine Anemia Likely inflammatory with ongoing infection Monitor DVT prophylaxis with Lovenox Full code Quality Stroke Does the patient have a stroke diagnosis?: No VTE Prior VTE?: No VTE Risk Level:: Medical - moderate - high VTE Device Contraindication: Treatment Not Indicated VTE Drug Contraindication: N/A - Med Ordered
[2021-04-01 12:37] LABS: Glucose, Whole Blood 180 mg/dL (60-115)
[2021-04-01] MEDS: Gabapentin 300 MG CAPSULE PO (13:26)
[2021-04-01] MEDS: Magnesium Oxide 400 MG TABLET PO (17:11)
[2021-04-01] MEDS: Acetaminophen 325 MG TABLET 650 MG PO (17:24)
[2021-04-01 18:24] LABS: Glucose, Whole Blood 289 mg/dL (60-115)
[2021-04-01 19:10] VITALS: BP 156/93; PULSE 89; RESP 16; TEMP 36.5; O2SAT 100
[2021-04-01 20:09] LABS: Glucose, Whole Blood 389 mg/dL (60-115)
[2021-04-01] MEDS: Ketorolac Tromethamine 15 MG/ML VIAL IVPUSH (20:16)
[2021-04-01] MEDS: Insulin Glargine,Hum.rec.anlog 100 UNIT/ML 10 ML VIAL 30 UNIT SUBCUT (20:19)
--- NOTE | 2021-04-01 20:42 | PM.CNPUL ---
History of Present Illness History of Present Illness Consult date: 04/01/21 Chief complaint: Sepsis, lung abscess Narrative: [facility] [address] [place] [address] Internal Med History&Physical Signed Patient: Dejan Hull MR#: [id number] : 1975 Acct:[id number] Age/Sex: 45 / M Loc: [place] [address] ?? ? Attending Dr: Vernon Valencia MD cc: ~ History of Present Illness this is an inpatient pulmonary consultation. The patient is a 45 gentleman with a history of diabetes in addition to history of a blood dyscrasia followed by Hematology. He presents with complaints of feeling unwell for about 1 month.? He reports productive cough with yellow sputum, fevers, chills, weight loss.? He states that it he was treated with antibiotics at 1 point, does not remember which antibiotics or exact duration, but did start to feel better, but afterwards symptoms quickly resumed.? Patient return to ED at this point because he is fed up with his symptoms.? In ED he was found to be septic with fever and tachycardia.? CT chest showed right upper lobe cavitary lesion consistent with Infection.? on further questioning he denies ever been diagnosed with tuberculosis. He does live in a home that has many rooms available for ran. He does share the common rooms with different individuals. In the home there may be between 4-5 individuals renting now rooms. He does describe significant weight loss about 20 lb in the last 3-4 weeks. He denies night sweats although he has been having fevers. His cough tends to be worse at nighttime. We did review the imaging of the CT scan demonstrating the right upper lobe thick cavitary lesion. We did talk about the differential including infection versus malignancy. The patient is a nonsmoker. Review of Systems Review of Systems: Constitutional: Fevers, chills, weight loss Eyes: denies blurry vision ENT: denies sore throat CVS: Chest pain when coughing Respiratory: Denies dyspnea GI: no abdominal pain : denies dysuria MSK: denies neck pain Skin: denies rash Neuro: denies specific motor weakness Psych: denies suicidal ideation Endocrine: denies heat/cold intolerance Hematologic: denies easy bleeding Allergy: denies hives PMFSH Past Medical History Medical History (Updated 04/01/21 @ 20:47 by Travis Mcnally MD) Cavitary lesion of lung Cavitary pneumonia Diabetes HTN (hypertension) Leukemia Family History Family History Father Diabetes mellitus Social History Social History Alcohol intake: current Patient Tobacco Use Status: Never used Tobacco Use of substances other than those prescribed or required for medical reasons: No Advance Directives: No service: No Current occupational status: unemployed Meds Allergies Allergy/AdvReac Type Severity Reaction Status Date / Time No Known Allergies Allergy Verified 03/31/21 04:00 Active Medications: Current Medications Acetaminophen (Acetaminophen 325 Mg Tablet) 650 mg PO Q6H PRN PRN Reason: Pain, Mild (Pain Scale 1-3) Last Admin: 04/01/21 17:24 Dose: 650 mg Documented by: Amlodipine Besylate (Amlodipine Besylate 5 Mg Tablet) 5 mg PO DAILY [facility]; Protocol Last Admin: 04/01/21 08:19 Dose: 5 mg Documented by: Aspirin (Aspirin Enteric Coated 81 Mg Tablet.Dr) 81 mg PO DAILY [facility] Last Admin: 04/01/21 08:19 Dose: 81 mg Documented by: Dextrose (Dextrose 50 % 25 Gm/50 Ml Syringe) 25 gm IVPUSH Q15M PRN; Protocol PRN Reason: per Hypoglycemia Standing Ord. Enoxaparin Sodium (Enoxaparin Sodium 40 Mg/0.4 Ml Syringe) 40 mg SUBCUT Q24H [facility] Last Admin: 04/01/21 08:18 Dose: 40 mg Documented by: Gabapentin (Gabapentin 600 Mg Tablet) 600 mg PO BID [facility] Last Admin: 04/01/21 20:16 Dose: 600 mg Documented by: Gabapentin (Gabapentin 300 Mg Capsule) 300 mg PO DAILY@1200 [facility] Last Admin: 04/01/21 13:26 Dose: 300 mg Documented by: Glucose (Glucose Gel 15 Gm Gel..Gram.) 15 gm PO Q15M PRN; Protocol PRN Reason: per Hypoglycemia Standing Ord. Ampicillin Sodium/Sulbactam (Sodium 3 gm/ Sodium Chloride) 100 mls @ 200 mls/hr IV Q6H [facility] Last Infusion: 04/01/21 17:45 Dose: Infused Documented by: Insulin Glargine (Insulin Glargine,Hum.Rec.Anlog 100 Unit/Ml 10 Ml Vial) 30 unit SUBCUT BEDTIME [facility] Last Admin: 04/01/21 20:19 Dose: 30 unit Documented by: Insulin Human Lispro (Insulin Lispro 100 Unit/Ml 3 Ml Vial) 0.1 - 10 unit SUBCUT QIDACHS [facility]; Protocol Last Admin: 04/01/21 20:18 Dose: 10 unit Documented by: Magnesium Oxide (Magnesium Oxide 400 Mg Tablet) 400 mg PO BIDPC [facility] Last Admin: 04/01/21 17:11 Dose: 400 mg Documented by: Multivitamins/Vitamin C (Multivitamin Tablet) 1 tab PO DAILY [facility] Omeprazole (Omeprazole 20 Mg Capsule.Dr) 20 mg PO DAILY@0630 [facility] Last Admin: 04/01/21 05:34 Dose: 20 mg Documented by: Sodium Chloride (0.9 % Sodium Chloride Flush 3 Ml Syringe) 3 ml IVFLUSH QSHIFT [facility] Last Admin: 04/01/21 10:35 Dose: Not Given Documented by: Home Medications Medication Instructions Recorded Confirmed Last Taken Type amlodipine 5 mg tablet 1 tab PO DAILY 03/31/21 03/31/21 03/30/21 History aspirin 81 mg tablet,delayed 1 tab PO DAILY 03/31/21 03/31/21 03/30/21 History release cyclosporine 0.05 % eye drops in a 1 drp OPHTHALMIC (EYE) BID 03/31/21 03/31/21 03/30/21 History dropperette (Restasis) gabapentin 300 mg capsule 1 cap PO DAILY@1200 03/31/21 03/31/21 Unknown History gabapentin 600 mg tablet 1 tab PO BID 03/31/21 03/31/21 03/30/21 History insulin aspart U-100 100 unit/mL See Rx Instructions .ROUTE .COMPLEX 03/31/21 03/31/21 03/30/21 History (3 mL) subcutaneous pen (Novolog Flexpen U-100 Insulin aspart) insulin glargine 100 unit/mL (3 30 unit SUBCUT BEDTIME 03/31/21 03/31/21 Unknown History mL) subcutaneous pen (Lantus Solostar U-100 Insulin) lisinopril 20 1 tab PO DAILY 03/31/21 03/31/21 Unknown History mg-hydrochlorothiazide 25 mg tablet multivitamin 1 tab PO DAILY 03/31/21 03/31/21 03/31/21 History omeprazole 20 mg capsule,delayed 1 cap PO QAM 03/31/21 03/31/21 Unknown History release Physical Exam Vital Signs: Vital Signs: Last Vital Signs Temp 97.7 F 04/01/21 19:10 Pulse 89 04/01/21 19:10 Resp 16 04/01/21 19:10 BP 156/93 H 04/01/21 19:10 Pulse Ox 100 04/01/21 19:10 BMI result Body Mass Index 27.3 Const: General: alert Neck: Neck: Yes normal visual inspection, Yes full ROM and Yes no lymphadenopathy Chest: Chest palpation & inspection: normal inspection of the chest Resp: Auscultation: diminished lung sounds Cardio: Rate: regular rate Rhythm: regular rhythm Heart sounds: S1 normal heart sound present and S2 normal heart sound present GI: Palpation (GI): Soft to palpation and nontender Auscultation: normal bowel sounds Skin: General skin exam: rashes and/or lesions noted Results Laboratory Findings CBC and BMP: 04/01/21 07:44 04/01/21 05:54 Abnormal lab findings: Abnormal Labs 03/31/21 03/31/21 03/31/21 04:00 04:12 04:12 WBC RBC 3.85 L Hgb 10.5 L Hct 31.4 L Neut % (Auto) 79.8 H Lymph % (Auto) 12.3 L ABG pH at Pt Temp VBG pH Sodium 133 L Potassium 3.1 L Chloride 94 L Anion Gap BUN 25 H Creatinine 1.46 H POC Glucose 425 H* Random Glucose 441 H* Fasting Glucose Calcium 7.9 L Magnesium 1.3 L* Alkaline Phosphatase 171 H Total Protein 6.2 L Albumin 2.8 L 03/31/21 03/31/21 03/31/21 04:17 05:40 05:58 WBC RBC Hgb Hct Neut % (Auto) Lymph % (Auto) ABG pH at Pt Temp 7.47 H VBG pH 7.60 H* Sodium Potassium Chloride Anion Gap BUN Creatinine POC Glucose 392 H* Random Glucose Fasting Glucose Calcium Magnesium Alkaline Phosphatase Total Protein Albumin 03/31/21 03/31/21 03/31/21 06:54 09:29 11:05 WBC RBC Hgb Hct Neut % (Auto) Lymph % (Auto) ABG pH at Pt Temp VBG pH Sodium Potassium Chloride Anion Gap BUN Creatinine POC Glucose 432 H* 385 H* 235 H Random Glucose Fasting Glucose Calcium Magnesium Alkaline Phosphatase Total Protein Albumin 03/31/21 03/31/21 04/01/21 17:12 20:33 05:54 WBC RBC Hgb Hct Neut % (Auto) Lymph % (Auto) ABG pH at Pt Temp VBG pH Sodium Potassium Chloride Anion Gap 11 L BUN 17 H Creatinine POC Glucose 273 H 387 H* Random Glucose Fasting Glucose 214 H Calcium 7.8 L Magnesium Alkaline Phosphatase Total Protein Albumin 04/01/21 04/01/21 04/01/21 07:43 07:44 08:46 WBC 4.5 L RBC 3.57 L Hgb 9.7 L Hct 29.5 L Neut % (Auto) Lymph % (Auto) ABG pH at Pt Temp VBG pH Sodium Potassium Chloride Anion Gap BUN Creatinine POC Glucose 192 H 247 H Random Glucose Fasting Glucose Calcium Magnesium Alkaline Phosphatase Total Protein Albumin 04/01/21 04/01/21 04/01/21 12:33 18:20 20:06 WBC RBC Hgb Hct Neut % (Auto) Lymph % (Auto) ABG pH at Pt Temp VBG pH Sodium Potassium Chloride Anion Gap BUN Creatinine POC Glucose 180 H 289 H 389 H* Random Glucose Fasting Glucose Calcium Magnesium Alkaline Phosphatase Total Protein Albumin Microbiology: Microbiology 03/31/21 04:12 Blood - Venous Blood Culture - Preliminary No growth after 24 hours. 03/31/21 04:12 Blood - Venous Blood Culture - Preliminary No growth after 24 hours. Assessment and Plan (1) Cavitary lesion of lung: Status: Acute (2) Cavitary pneumonia: Status: Acute Plan the patient has a thick wall cavitary lesion in the right upper lobe anterior segment. This is likely a smoldering infectious process that may go along with symptoms. The patient does have risk factors for tuberculosis specially with his living situation. Aspiration pneumonia is also in differential although difficult to aspirate into the anterior segment of the right upper lobe. Malignancy is also in the differential including squamous cell carcinoma which may cavitated. Although the patient is a nonsmoker. the patient is to be in airborne precautions continue antibiotic coverage plan for bronchoscopy tomorrow 04/02/21 T spot, HIV she would be tested sputum for AFB also should be test for a total of 3 specimens to remove TB precautions. Keep patient NPO Procedures Date of Service Date of Service: 04/01/21
[2021-04-02] VITALS (12 sets, daily range): BP systolic 110–172; BP diastolic 68–100; PULSE 77–88; RESP 15–24; TEMP 35.7–36.8; O2SAT 96–100
[2021-04-02] MEDS: Ampicillin Sodium/Sulbactam Na 3 GM in 0.9 % Sodium Chloride 100 ML IV ×4 (05:27→22:36)
[2021-04-02 06:23] LABS: Glucose, Whole Blood 282 mg/dL (60-115)
[2021-04-02 06:40] LABS: Hematocrit 30.6 % (42.0-52.0); Hemoglobin 9.9 g/dl (14.0-18.0); Mean Corpuscular HGB Conc 32.4 g/dl (31.0-36.0); Mean Corpuscular Hemoglobin 27.6 pg (27.0-33.0); Mean Corpuscular Volume 85.2 fL (80.0-98.0); Mean Platelet Volume 10.4 fL (9.4-12.4); Platelet Count 209 X10*3/uL (160-400); Red Blood Count 3.59 X10*6/uL (4.60-5.80); Red Cell Distribution Width 14.7 % (11.0-16.0)
[2021-04-02 06:45] LABS: Anion Gap 11 (12-20); Blood Urea Nitrogen 13 mg/dL (9-16); Calcium 7.6 mg/dL (8.4-10.2); Carbon Dioxide 30 mmol/L (22-29); Chloride 103 mmol/L (96-108); Creatinine Clr Calc Pharmacy 88.4; Estimated Glomerular Filt Rate > 60; Glucose Fasting 274 mg/dL (60-99); Magnesium 1.5 mg/dL (1.6-2.6); Potassium 3.8 mmol/L (3.3-5.1); Sodium 140 mmol/L (135-145)
[2021-04-02 07:54] LABS: HIV AB/AG Nonreactive (Nonreactive); HIV Num 1 0.11 S/CO (0.00-0.99)
[2021-04-02] MEDS: Magnesium Sulfate/H2O 2 GM/50 ML PIGGYBACK IV (08:57)
[2021-04-02] MEDS: Insulin Lispro 100 UNIT/ML 3 ML VIAL SUBCUT ×3 (08:59→22:34)
[2021-04-02] MEDS: amLODIPine Besylate 5 MG TABLET PO (09:02)
[2021-04-02] MEDS: Omeprazole 20 MG CAPSULE.DR PO (09:02)
[2021-04-02] MEDS: Gabapentin 600 MG TABLET PO ×2 (09:02→22:32)
[2021-04-02] MEDS: Magnesium Oxide 400 MG TABLET PO ×2 (09:02→16:40)
[2021-04-02] MEDS: Aspirin Enteric Coated 81 MG TABLET.DR PO (09:03)
[2021-04-02] MEDS: Multivitamin TABLET 1 TAB PO (09:03)
[2021-04-02] MEDS: 0.9 % Sodium Chloride Flush 3 ML SYRINGE IVFLUSH ×3 (09:03→22:37)
--- NOTE | 2021-04-02 10:34 | P.CNID_ITS ---
History of Present Illness Data of Consult Service Date: 04/01/21 Requesting physician: Valeria Reddy Primary Care Provider: Unknown Physician HPI Reason for consult: right upper lung lesion He presents with cough as well as productive sputum. He has no fever or chills. He has felt ill for three months he says. He has said he had leukemia years ago he says and had a pneumonia and seen at [facility], Review of Systems Review of Systems: Yes all other systems are reviewed and are negative [facility] Past Medical History Medical History (Updated 04/14/21 @ 00:02 by Tunde Rodrigues) Cavitary lesion of lung Cavitary pneumonia Diabetes HTN (hypertension) Leukemia Lung abscess Family History Family History Father Diabetes mellitus Family history: reviewed and not pertinent Social History Social History Alcohol intake: current Patient Tobacco Use Status: Never used Tobacco service: No Current occupational status: unemployed Meds Allergies Allergy/AdvReac Type Severity Reaction Status Date / Time No Known Allergies Allergy Verified 03/31/21 04:00 Active Medications: Current Medications Acetaminophen (Acetaminophen 325 Mg Tablet) 650 mg PO Q6H PRN PRN Reason: Pain, Mild (Pain Scale 1-3) Last Admin: 04/01/21 17:24 Dose: 650 mg Documented by: Amlodipine Besylate (Amlodipine Besylate 5 Mg Tablet) 5 mg PO DAILY [facility]; Protocol Last Admin: 04/02/21 09:02 Dose: 5 mg Documented by: Aspirin (Aspirin Enteric Coated 81 Mg Tablet.) 81 mg PO DAILY [facility] Last Admin: 04/02/21 09:03 Dose: 81 mg Documented by: Dextrose (Dextrose 50 % 25 Gm/50 Ml Syringe) 25 gm IVPUSH Q15M PRN; Protocol PRN Reason: per Hypoglycemia Standing Ord. Enoxaparin Sodium (Enoxaparin Sodium 40 Mg/0.4 Ml Syringe) 40 mg SUBCUT Q24H [facility] Last Admin: 04/01/21 08:18 Dose: 40 mg Documented by: Gabapentin (Gabapentin 600 Mg Tablet) 600 mg PO BID [facility] Last Admin: 04/02/21 09:02 Dose: 600 mg Documented by: Gabapentin (Gabapentin 300 Mg Capsule) 300 mg PO DAILY@1200 [facility] Last Admin: 04/01/21 13:26 Dose: 300 mg Documented by: Glucose (Glucose Gel 15 Gm Gel..Gram.) 15 gm PO Q15M PRN; Protocol PRN Reason: per Hypoglycemia Standing Ord. Ampicillin Sodium/Sulbactam (Sodium 3 gm/ Sodium Chloride) 100 mls @ 200 mls/hr IV Q6H [facility] Last Infusion: 04/02/21 05:57 Dose: Infused Documented by: Insulin Glargine (Insulin Glargine,Hum.Rec.Anlog 100 Unit/Ml 10 Ml Vial) 30 unit SUBCUT BEDTIME [facility] Last Admin: 04/01/21 20:19 Dose: 30 unit Documented by: Insulin Human Lispro (Insulin Lispro 100 Unit/Ml 3 Ml Vial) 0.1 - 10 unit SUBCUT QIDACHS [facility]; Protocol Last Admin: 04/02/21 08:59 Dose: 6 unit Documented by: Magnesium Oxide (Magnesium Oxide 400 Mg Tablet) 400 mg PO BIDPC [facility] Last Admin: 04/02/21 09:02 Dose: 400 mg Documented by: Multivitamins/Vitamin C (Multivitamin Tablet) 1 tab PO DAILY [facility] Last Admin: 04/02/21 09:03 Dose: 1 tab Documented by: Omeprazole (Omeprazole 20 Mg Capsule.Dr) 20 mg PO DAILY@0630 [facility] Last Admin: 04/02/21 09:02 Dose: 20 mg Documented by: Sodium Chloride (0.9 % Sodium Chloride Flush 3 Ml Syringe) 3 ml IVFLUSH QSHIFT [facility] Last Admin: 04/02/21 09:03 Dose: 3 ml Documented by: Home Medications Medication Instructions Recorded Confirmed Last Taken Type amlodipine 5 mg tablet 1 tab PO DAILY 03/31/21 03/31/21 03/30/21 History aspirin 81 mg tablet,delayed 1 tab PO DAILY 03/31/21 03/31/21 03/30/21 History release cyclosporine 0.05 % eye drops in a 1 drp OPHTHALMIC (EYE) BID 03/31/21 03/31/21 03/30/21 History dropperette (Restasis) gabapentin 300 mg capsule 1 cap PO DAILY@1200 03/31/21 03/31/21 Unknown History gabapentin 600 mg tablet 1 tab PO BID 03/31/21 03/31/21 03/30/21 History insulin aspart U-100 100 unit/mL See Rx Instructions .ROUTE .COMPLEX 02/21/22 02/21/22 02/20/22 History (3 mL) subcutaneous pen (Novolog Flexpen U-100 Insulin aspart) insulin glargine 100 unit/mL (3 30 unit SUBCUT BEDTIME 03/31/21 03/31/21 Unknown History mL) subcutaneous pen (Lantus Solostar U-100 Insulin) lisinopril 20 1 tab PO DAILY 03/31/21 03/31/21 Unknown History mg-hydrochlorothiazide 25 mg tablet multivitamin 1 tab PO DAILY 03/31/21 03/31/21 03/31/21 History omeprazole 20 mg capsule,delayed 1 cap PO QAM 03/31/21 03/31/21 Unknown History release Physical Exam Vital Signs: Vital Signs: Last Vital Signs Temp 98.2 F 04/02/21 00:00 Pulse 81 04/02/21 09:06 Resp 16 04/02/21 09:06 BP 172/100 H 04/02/21 09:06 Pulse Ox 97 04/02/21 09:06 BMI result Body Mass Index 27.3 Const: General: cooperative HENMT: Head: Yes normal to inspection Mouth: Normal oral and palatal mucosa present Eyes: General: appearance normal, both eyes and all related structures Pupils: Equal, round and reactive pupils present Resp: Effort & Inspection: decreased respiratory effort Cardio: Rate: regular rate Rhythm: regular rhythm GI: Palpation (GI): Soft to palpation and nontender Neuro: Cranial nerves: Yes Equal, round and reactive pupils present Extrem: General: Yes normal to inspection Results Labs CBC & Chem 7: 04/04/21 05:27 04/04/21 05:27 Labs: Short CBC 04/02/21 Range/Units 06:16 WBC 4.0 L (4.8-10.8) X10*3/uL Hgb 9.9 L (14.0-18.0) g/dl Hct 30.6 L (42.0-52.0) % Plt Count 209 (160-400) X10*3/uL BMP 04/02/21 06:15 Sodium 140 Potassium 3.8 Chloride 103 Carbon Dioxide 30 H BUN 13 Creatinine 1.01 Calcium 7.6 L Microbiology Microbiology Results: Microbiology 03/31/21 04:12 Blood - Venous Blood Culture - Preliminary No growth after 48 hours. 03/31/21 04:12 Blood - Venous Blood Culture - Preliminary No growth after 48 hours. Assessment and Plan (1) Cavitary pneumonia: Status: Acute RUL lesion,he has history ?TIM?prior fungal He denies TB history (2) Cavitary lesion of lung: Plan Continue Unasyn ,possibly week or more. Would involve Pulmonary ,possible bronch?AFB/TIM Check MRSA nares. Will see what is in [facility] records, Respiratory isolation for now. Check AFB and quantitative interferon.
[2021-04-02 10:55] LABS: Glucose, Whole Blood 68 mg/dL (60-115)
[2021-04-02] MEDS: Dextrose 50 % 25 GM/50 ML SYRINGE IVPUSH (10:56)
--- NOTE | 2021-04-02 10:57 | HO.PM.IMPN ---
Subjective Subjective Date of Service: 04/02/21 Interval History: the patient was seen and evaluated this morning Laying in bed, complaining of pain in the right side of his chest after biopsy Denies any fever, chills or shortness of breath Blood cultures remain negative No reported other overnight events. Systemic review: No fever, chills or weakness right-sided chest pain, no palpitations No shortness of breath or coughing No abdominal pain, nausea or vomiting No urinary symptoms No any rash or wounds Physical Exam Vital Signs: Vital Signs: Last Vital Signs Temp 98.2 F 04/02/21 00:00 Pulse 81 04/02/21 09:06 Resp 16 04/02/21 09:06 BP 172/100 H 04/02/21 09:06 Pulse Ox 97 04/02/21 09:06 BMI result Body Mass Index 27.3 Const: Other: Constitutional : Alert, oriented, not in distress Neck : Normal inspection, Supple Cardiovascular : RRR, S1 S2, no lower extremity edema Respiratory : decreased bilateral air entry mainly at the right side, no crackles, wheezes or rhonchi Gastrointestinal: soft, lax, Normal bowel sounds, Non tender Skin : Warm, Dry Neurological : Alert & oriented x3, No focal deficit Objective Data Active Medications Acetaminophen (Acetaminophen 325 Mg Tablet) 650 mg PO Q6H PRN PRN Reason: Pain, Mild (Pain Scale 1-3) Last Admin: 04/01/21 17:24 Dose: 650 mg Documented by: GINA Amlodipine Besylate (Amlodipine Besylate 5 Mg Tablet) 5 mg PO DAILY [facility]; Protocol Last Admin: 04/02/21 09:02 Dose: 5 mg Documented by: RAFAEL Aspirin (Aspirin Enteric Coated 81 Mg Tablet.Dr) 81 mg PO DAILY [facility] Last Admin: 04/02/21 09:03 Dose: 81 mg Documented by: RAFAEL Dextrose (Dextrose 50 % 25 Gm/50 Ml Syringe) 25 gm IVPUSH Q15M PRN; Protocol PRN Reason: per Hypoglycemia Standing Ord. Last Admin: 04/02/21 10:56 Dose: 25 gm Documented by: RAFAEL Enoxaparin Sodium (Enoxaparin Sodium 40 Mg/0.4 Ml Syringe) 40 mg SUBCUT Q24H [facility] Last Admin: 04/01/21 08:18 Dose: 40 mg Documented by: GINA Gabapentin (Gabapentin 600 Mg Tablet) 600 mg PO BID [facility] Last Admin: 04/02/21 09:02 Dose: 600 mg Documented by: RAFAEL Gabapentin (Gabapentin 300 Mg Capsule) 300 mg PO DAILY@1200 [facility] Last Admin: 04/01/21 13:26 Dose: 300 mg Documented by: GINA Glucose (Glucose Gel 15 Gm Gel..Gram.) 15 gm PO Q15M PRN; Protocol PRN Reason: per Hypoglycemia Standing Ord. Ampicillin Sodium/Sulbactam (Sodium 3 gm/ Sodium Chloride) 100 mls @ 200 mls/hr IV Q6H [facility] Last Infusion: 04/02/21 05:57 Dose: 0 mls/hr Documented by: JUAN FRANCISCO Insulin Glargine (Insulin Glargine,Hum.Rec.Anlog 100 Unit/Ml 10 Ml Vial) 30 unit SUBCUT BEDTIME [facility] Last Admin: 04/01/21 20:19 Dose: 30 unit Documented by: JUAN FRANCISCO Insulin Human Lispro (Insulin Lispro 100 Unit/Ml 3 Ml Vial) 0.1 - 10 unit SUBCUT QIDACHS [facility]; Protocol Last Admin: 04/02/21 08:59 Dose: 6 unit Documented by: RAFAEL Magnesium Oxide (Magnesium Oxide 400 Mg Tablet) 400 mg PO BIDPC [facility] Last Admin: 04/02/21 09:02 Dose: 400 mg Documented by: RAFAEL Multivitamins/Vitamin C (Multivitamin Tablet) 1 tab PO DAILY [facility] Last Admin: 04/02/21 09:03 Dose: 1 tab Documented by: RAFAEL Omeprazole (Omeprazole 20 Mg Alexsander.) 20 mg PO DAILY@0630 [facility] Last Admin: 04/02/21 09:02 Dose: 20 mg Documented by: RAFAEL Sodium Chloride (0.9 % Sodium Chloride Flush 3 Ml Syringe) 3 ml IVFLUSH QSHIFT [facility] Last Admin: 04/02/21 09:03 Dose: 3 ml Documented by: RAFAEL Labs CBC & Chem 7: 04/02/21 06:16 04/02/21 06:15 Labs: Laboratory Results - last 24 hr 04/01/21 04/01/21 04/01/21 12:33 18:20 20:06 MCV MCH MCHC RDW Plt Count MPV Absolute Nucleated RBC Nucleated RBC % (auto) Anion Gap Estim Creat Clear Calc Estimated GFR POC Glucose 180 H 289 H 389 H* Fasting Glucose Calcium Magnesium HIV 1&2 Ab/P24 Ag 4thGn 04/01/21 04/02/21 04/02/21 21:00 05:51 06:15 MCV MCH MCHC RDW Plt Count MPV Absolute Nucleated RBC Nucleated RBC % (auto) Anion Gap 11 L Estim Creat Clear Calc 88.4 Estimated GFR > 60 POC Glucose 282 H Fasting Glucose 274 H Calcium 7.6 L Magnesium 1.5 L HIV 1&2 Ab/P24 Ag 4thGn Nonreactive 04/02/21 04/02/21 06:16 10:50 MCV 85.2 MCH 27.6 MCHC 32.4 RDW 14.7 Plt Count 209 MPV 10.4 Absolute Nucleated RBC 0.000 Nucleated RBC % (auto) 0.0 Anion Gap Estim Creat Clear Calc Estimated GFR POC Glucose 68 Fasting Glucose Calcium Magnesium HIV 1&2 Ab/P24 Ag 4thGn Microbiology Microbiology Results: Microbiology 03/31/21 04:12 Blood Culture - Preliminary Blood - Venous No growth after 48 hours. 03/31/21 04:12 Blood Culture - Preliminary Blood - Venous No growth after 48 hours. Assessment and Plan (1) Cavitary pneumonia: Status: Acute (2) NEELA (acute kidney injury): Status: Acute (3) Hypomagnesemia: Status: Acute Plan 45-year-old male presented with cough, found to be septic with acute kidney injury Sepsis due to right upper lobe cavitary pneumonia Suspect bacterial, Possibly aspiration inpatient with moderate alcohol use continue IV Unasyn id input appreciated Follow-up cultures - no growth in blood so far bronchoscopy done today with biopsies taken ?T spot,? HIV? pending ?sputum for AFB daily for 3 specimens to remove TB precautions Acute kidney injury Holding lisinopril creatinine improved to 1 Diabetes with hyperglycemia Basal bolus insulin hypomagnesemia Replace and monitor HTN lisinopril on hold continue amlodipine Anemia Likely inflammatory with ongoing infection Monitor DVT prophylaxis with Lovenox Full code Quality Stroke Does the patient have a stroke diagnosis?: No VTE Prior VTE?: No VTE Risk Level:: Medical - moderate - high VTE Device Contraindication: Treatment Not Indicated VTE Drug Contraindication: N/A - Med Ordered
--- NOTE | 2021-04-02 10:59 | PC.NURSE ---
Pt feeling shaky and lightheaded, POC 68, 50% 25g given per protocol, this RN at bedside for monitoring at this time. Awaits bronchoscopy
--- NOTE | 2021-04-02 10:59 | MHC.SHP ---
Pre-Procedural Eval Section A Date of Service: 04/02/21 The patient is an INPATIENT: Yes Section B Chief Complaint: Sepsis, lung abscess Allergies: Allergies Allergy/AdvReac Type Severity Reaction Status Date / Time No Known Allergies Allergy Verified 03/31/21 04:00 Plan I have reviewed the history and physical and performed a pertinent physical examination on my patient. No changes have occurred unless specified.
[2021-04-02] MEDS: Gabapentin 300 MG CAPSULE PO (11:06)
[2021-04-02 11:15] LABS: Glucose, Whole Blood 152 mg/dL (60-115)
--- NOTE | 2021-04-02 11:15 | PC.NURSE ---
Repeat POC 152, Pt feeling better. PACU now taking pt for bronchoscopy at this time and will f/u hang abx there
--- NOTE | 2021-04-02 11:28 | PC.NURSE ---
Report to Cecy on med surg
[2021-04-02] MEDS: Ketorolac Tromethamine 15 MG/ML VIAL IVPUSH ×2 (13:16→22:33)
--- NOTE | 2021-04-02 13:38 | P.CONAN_ITS ---
HPI - Anesthesia Eval Consult details Narrative: 45 years old male for broncoscopy Presented with cough, NEELA , right upper lobe cavitary pneumonia PMFSH Active Problems Active Problems: All Active Problems (Updated 04/01/21 @ 20:47 by Travis Mcnally MD) Cavitary pneumonia (Acute) Cavitary lesion of lung (Acute) HTN (hypertension) (Acute) Diabetes (Acute) Sepsis (Acute) NEELA (acute kidney injury) (Acute) Hypomagnesemia (Acute) Hypokalemia (Acute) Past Medical History Medical History Cavitary lesion of lung Cavitary pneumonia Diabetes HTN (hypertension) Leukemia Family History Family History Father Diabetes mellitus Family history of problems with anesthesia: No Surgical History History of Problems with Anesthesia: No Social History Social History Alcohol intake: current Patient Tobacco Use Status: Never used Tobacco service: No Current occupational status: unemployed Meds Allergies Allergy/AdvReac Type Severity Reaction Status Date / Time No Known Allergies Allergy Verified 03/31/21 04:00 Active Medications: Current Medications Acetaminophen (Acetaminophen 325 Mg Tablet) 650 mg PO Q6H PRN PRN Reason: Pain, Mild (Pain Scale 1-3) Last Admin: 04/01/21 17:24 Dose: 650 mg Documented by: Amlodipine Besylate (Amlodipine Besylate 5 Mg Tablet) 5 mg PO DAILY [facility]; Protocol Last Admin: 04/02/21 09:02 Dose: 5 mg Documented by: Aspirin (Aspirin Enteric Coated 81 Mg Tablet.Dr) 81 mg PO DAILY [facility] Last Admin: 04/02/21 09:03 Dose: 81 mg Documented by: Dextrose (Dextrose 50 % 25 Gm/50 Ml Syringe) 25 gm IVPUSH Q15M PRN; Protocol PRN Reason: per Hypoglycemia Standing Ord. Last Admin: 04/02/21 10:56 Dose: 25 gm Documented by: Enoxaparin Sodium (Enoxaparin Sodium 40 Mg/0.4 Ml Syringe) 40 mg SUBCUT Q24H [facility] Last Admin: 04/01/21 08:18 Dose: 40 mg Documented by: Gabapentin (Gabapentin 600 Mg Tablet) 600 mg PO BID [facility] Last Admin: 04/02/21 09:02 Dose: 600 mg Documented by: Gabapentin (Gabapentin 300 Mg Capsule) 300 mg PO DAILY@1200 [facility] Last Admin: 04/02/21 11:06 Dose: 300 mg Documented by: Glucose (Glucose Gel 15 Gm Gel..Gram.) 15 gm PO Q15M PRN; Protocol PRN Reason: per Hypoglycemia Standing Ord. Ampicillin Sodium/Sulbactam (Sodium 3 gm/ Sodium Chloride) 100 mls @ 200 mls/hr IV Q6H [facility] Last Admin: 04/02/21 11:07 Dose: 200 mls/hr Documented by: Insulin Glargine (Insulin Glargine,Hum.Rec.Anlog 100 Unit/Ml 10 Ml Vial) 30 unit SUBCUT BEDTIME [facility] Last Admin: 04/01/21 20:19 Dose: 30 unit Documented by: Insulin Human Lispro (Insulin Lispro 100 Unit/Ml 3 Ml Vial) 0.1 - 10 unit SUBCUT QIDACHS [facility]; Protocol Last Admin: 04/02/21 11:01 Dose: Not Given Documented by: Ketorolac Tromethamine (Ketorolac Tromethamine 15 Mg/Ml Vial) 15 mg IVPUSH Q6H PRN PRN Reason: Pain, Severe (Pain Scale 7-10) Last Admin: 04/02/21 13:16 Dose: 15 mg Documented by: Magnesium Oxide (Magnesium Oxide 400 Mg Tablet) 400 mg PO BIDPC [facility] Last Admin: 04/02/21 09:02 Dose: 400 mg Documented by: Multivitamins/Vitamin C (Multivitamin Tablet) 1 tab PO DAILY [facility] Last Admin: 04/02/21 09:03 Dose: 1 tab Documented by: Omeprazole (Omeprazole 20 Mg Alexsander.) 20 mg PO DAILY@0630 [facility] Last Admin: 04/02/21 09:02 Dose: 20 mg Documented by: Sodium Chloride (0.9 % Sodium Chloride Flush 3 Ml Syringe) [facility] Last Admin: 04/02/21 09:03 Dose: 3 ml Documented by: Home Medications Medication Instructions Recorded Confirmed Last Taken Type amlodipine 5 mg tablet 1 tab PO DAILY 03/31/21 03/31/21 03/30/21 History aspirin 81 mg tablet,delayed 1 tab PO DAILY 03/31/21 03/31/21 03/30/21 History release cyclosporine 0.05 % eye drops in a 1 drp OPHTHALMIC (EYE) BID 03/31/21 03/31/21 03/30/21 History dropperette (Restasis) gabapentin 300 mg capsule 1 cap PO DAILY@1200 03/31/21 03/31/21 Unknown History gabapentin 600 mg tablet 1 tab PO BID 03/31/21 03/31/21 03/30/21 History insulin aspart U-100 100 unit/mL See Rx Instructions .ROUTE .COMPLEX 03/31/21 03/31/21 03/30/21 History (3 mL) subcutaneous pen (Novolog Flexpen U-100 Insulin aspart) insulin glargine 100 unit/mL (3 30 unit SUBCUT BEDTIME 03/31/21 03/31/21 Unknown History mL) subcutaneous pen (Lantus Solostar U-100 Insulin) lisinopril 20 1 tab PO DAILY 03/31/21 03/31/21 Unknown History mg-hydrochlorothiazide 25 mg tablet multivitamin 1 tab PO DAILY 03/31/21 03/31/21 03/31/21 History omeprazole 20 mg capsule,delayed 1 cap PO QAM 03/31/21 03/31/21 Unknown History release Exam Exam Date and Time: April 02, 2021 1338 Height,Weight and Vital Signs: Height 5 ft 8 in Weight 81.647 kg Last Vital Signs Temp 98.2 F 04/02/21 12:00 Pulse 82 04/02/21 12:33 Resp 18 04/02/21 12:33 BP 149/89 H 04/02/21 12:33 Pulse Ox 100 04/02/21 12:33 Pertinent Lab Results Pertinent Lab Results: Laboratory Tests 03/31/21 03/31/21 03/31/21 04:00 04:12 04:12 WBC 10.2 RBC 3.85 L Hgb 10.5 L Hct 31.4 L MCV 81.6 MCH 27.3 MCHC 33.4 RDW 14.4 Plt Count 212 MPV 10.3 Immature Gran % (Auto) 0.3 Neut % (Auto) 79.8 H Lymph % (Auto) 12.3 L [place] % (Auto) 6.1 Eos % (Auto) 1.1 Baso % (Auto) 0.4 Lymph # (Auto) 1.3 [place] # (Auto) 0.6 Eos # (Auto) 0.1 Baso # (Auto) 0.0 Abs Immat Gran (auto) 0.03 Absolute Neuts (auto) 8.2 Absolute Nucleated RBC 0.000 Nucleated RBC % (auto) 0.0 D-Dimer High Sensitivty O2 Saturation ABG pH at Pt Temp ABG pCO2 at Pt Temp ABG pO2 at Pt Temp ABG HCO3 ABG Base Excess (Actual) VBG pH VBG pCO2 VBG pO2 VBG HCO3 VBG O2 Saturation VBG Base Excess Sodium 133 L Potassium 3.1 L Chloride 94 L Carbon Dioxide 28 Anion Gap 14 BUN 25 H Creatinine 1.46 H Estim Creat Clear Calc 61.1 Estimated GFR 52 POC Glucose 425 H* Random Glucose 441 H* Fasting Glucose Lactic Acid Calcium 7.9 L Magnesium 1.3 L* Total Bilirubin 0.7 AST 7 ALT < 6 Alkaline Phosphatase 171 H Troponin I High Sens B-Natriuretic Peptide Total Protein 6.2 L Albumin 2.8 L Lipase 18 TSH Acetone, Qual Negative COVID-19 (ANA M) COVID-19 Clin Com HIV 1&2 Ab/P24 Ag 4thGn 03/31/21 03/31/21 03/31/21 04:12 04:12 04:12 WBC RBC Hgb Hct MCV MCH MCHC RDW Plt Count MPV Immature Gran % (Auto) Neut % (Auto) Lymph % (Auto) [place] % (Auto) Eos % (Auto) Baso % (Auto) Lymph # (Auto) [place] # (Auto) Eos # (Auto) Baso # (Auto) Abs Immat Gran (auto) Absolute Neuts (auto) Absolute Nucleated RBC Nucleated RBC % (auto) D-Dimer High Sensitivty < 150 O2 Saturation ABG pH at Pt Temp ABG pCO2 at Pt Temp ABG pO2 at Pt Temp ABG HCO3 ABG Base Excess (Actual) VBG pH VBG pCO2 VBG pO2 VBG HCO3 VBG O2 Saturation VBG Base Excess Sodium Potassium Chloride Carbon Dioxide Anion Gap BUN Creatinine Estim Creat Clear Calc Estimated GFR POC Glucose Random Glucose Fasting Glucose Lactic Acid Calcium Magnesium Total Bilirubin AST ALT Alkaline Phosphatase Troponin I High Sens 14.5 B-Natriuretic Peptide 42 Total Protein Albumin Lipase TSH Acetone, Qual COVID-19 (AAN M) Negative COVID-19 Clin Com See Note HIV 1&2 Ab/P24 Ag 4thGn 03/31/21 03/31/21 03/31/21 04:12 04:17 05:40 WBC RBC Hgb Hct MCV MCH MCHC RDW Plt Count MPV Immature Gran % (Auto) Neut % (Auto) Lymph % (Auto) [place] % (Auto) Eos % (Auto) Baso % (Auto) Lymph # (Auto) [place] # (Auto) Eos # (Auto) Baso # (Auto) Abs Immat Gran (auto) Absolute Neuts (auto) Absolute Nucleated RBC Nucleated RBC % (auto) D-Dimer High Sensitivty O2 Saturation ABG pH at Pt Temp ABG pCO2 at Pt Temp ABG pO2 at Pt Temp ABG HCO3 ABG Base Excess (Actual) VBG pH 7.60 H* VBG pCO2 26 VBG pO2 127 VBG HCO3 26 VBG O2 Saturation 100.0 VBG Base Excess 5.6 Sodium Potassium Chloride Carbon Dioxide Anion Gap BUN Creatinine Estim Creat Clear Calc Estimated GFR POC Glucose 392 H* Random Glucose Fasting Glucose Lactic Acid 1.8 Calcium Magnesium Total Bilirubin AST ALT Alkaline Phosphatase Troponin I High Sens B-Natriuretic Peptide Total Protein Albumin Lipase TSH Acetone, Qual COVID-19 (ANA M) COVID-19 [employer] Com HIV 1&2 Ab/P24 Ag 4thGn 03/31/21 03/31/21 03/31/21 05:58 06:54 09:29 WBC RBC Hgb Hct MCV MCH MCHC RDW Plt Count MPV Immature Gran % (Auto) Neut % (Auto) Lymph % (Auto) [place] % (Auto) Eos % (Auto) Baso % (Auto) Lymph # (Auto) [place] # (Auto) Eos # (Auto) Baso # (Auto) Abs Immat Gran (auto) Absolute Neuts (auto) Absolute Nucleated RBC Nucleated RBC % (auto) D-Dimer High Sensitivty O2 Saturation 97.0 ABG pH at Pt Temp 7.47 H ABG pCO2 at Pt Temp 35 ABG pO2 at Pt Temp 96 ABG HCO3 26 ABG Base Excess (Actual) 2.9 VBG pH VBG pCO2 VBG pO2 VBG HCO3 VBG O2 Saturation VBG Base Excess Sodium Potassium Chloride Carbon Dioxide Anion Gap BUN Creatinine Estim Creat Clear Calc Estimated GFR POC Glucose 432 H* 385 H* Random Glucose Fasting Glucose Lactic Acid Calcium Magnesium Total Bilirubin AST ALT Alkaline Phosphatase Troponin I High Sens B-Natriuretic Peptide Total Protein Albumin Lipase TSH Acetone, Qual COVID-19 (ANA M) COVID-19 [employer] Com HIV 1&2 Ab/P24 Ag 4thGn 03/31/21 03/31/21 03/31/21 11:05 12:35 17:12 WBC RBC Hgb Hct MCV MCH MCHC RDW Plt Count MPV Immature Gran % (Auto) Neut % (Auto) Lymph % (Auto) [place] % (Auto) Eos % (Auto) Baso % (Auto) Lymph # (Auto) [place] # (Auto) Eos # (Auto) Baso # (Auto) Abs Immat Gran (auto) Absolute Neuts (auto) Absolute Nucleated RBC Nucleated RBC % (auto) D-Dimer High Sensitivty O2 Saturation ABG pH at Pt Temp ABG pCO2 at Pt Temp ABG pO2 at Pt Temp ABG HCO3 ABG Base Excess (Actual) VBG pH VBG pCO2 VBG pO2 VBG HCO3 VBG O2 Saturation VBG Base Excess Sodium Potassium Chloride Carbon Dioxide Anion Gap BUN Creatinine Estim Creat Clear Calc Estimated GFR POC Glucose 235 H 95 273 H Random Glucose Fasting Glucose Lactic Acid Calcium Magnesium Total Bilirubin AST ALT Alkaline Phosphatase Troponin I High Sens B-Natriuretic Peptide Total Protein Albumin Lipase TSH Acetone, Qual COVID-19 (ANA M) COVID-19 Clin [facility] HIV 1&2 Ab/P24 Ag 4thGn 03/31/21 04/01/21 04/01/21 20:33 05:54 07:43 WBC RBC Hgb Hct MCV MCH MCHC RDW Plt Count MPV Immature Gran % (Auto) Neut % (Auto) Lymph % (Auto) [place] % (Auto) Eos % (Auto) Baso % (Auto) Lymph # (Auto) [place] # (Auto) Eos # (Auto) Baso # (Auto) Abs Immat Gran (auto) Absolute Neuts (auto) Absolute Nucleated RBC Nucleated RBC % (auto) D-Dimer High Sensitivty O2 Saturation ABG pH at Pt Temp ABG pCO2 at Pt Temp ABG pO2 at Pt Temp ABG HCO3 ABG Base Excess (Actual) VBG pH VBG pCO2 VBG pO2 VBG HCO3 VBG O2 Saturation VBG Base Excess Sodium 136 Potassium 3.9 D Chloride 101 Carbon Dioxide 28 Anion Gap 11 L BUN 17 H Creatinine 1.02 Estim Creat Clear Calc 87.5 Estimated GFR > 60 POC Glucose 387 H* 192 H Random Glucose Fasting Glucose 214 H Lactic Acid Calcium 7.8 L Magnesium 1.6 Total Bilirubin AST ALT Alkaline Phosphatase Troponin I High Sens B-Natriuretic Peptide Total Protein Albumin Lipase TSH 2.05 Acetone, Qual COVID-19 (ANA M) COVID-19 Clin Com HIV 1&2 Ab/P24 Ag 4thGn 04/01/21 04/01/21 04/01/21 07:44 08:46 12:33 WBC 4.5 L RBC 3.57 L Hgb 9.7 L Hct 29.5 L MCV 82.6 MCH 27.2 MCHC 32.9 RDW 14.5 Plt Count 182 MPV 10.3 Immature Gran % (Auto) Neut % (Auto) Lymph % (Auto) [place] % (Auto) Eos % (Auto) Baso % (Auto) Lymph # (Auto) [place] # (Auto) Eos # (Auto) Baso # (Auto) Abs Immat Gran (auto) Absolute Neuts (auto) Absolute Nucleated RBC 0.000 Nucleated RBC % (auto) 0.0 D-Dimer High Sensitivty O2 Saturation ABG pH at Pt Temp ABG pCO2 at Pt Temp ABG pO2 at Pt Temp ABG HCO3 ABG Base Excess (Actual) VBG pH VBG pCO2 VBG pO2 VBG HCO3 VBG O2 Saturation VBG Base Excess Sodium Potassium Chloride Carbon Dioxide Anion Gap BUN Creatinine Estim Creat Clear Calc Estimated GFR POC Glucose 247 H 180 H Random Glucose Fasting Glucose Lactic Acid Calcium Magnesium Total Bilirubin AST ALT Alkaline Phosphatase Troponin I High Sens B-Natriuretic Peptide Total Protein Albumin Lipase TSH Acetone, Qual COVID-19 (ANA M) COVID-19 Clin Com HIV 1&2 Ab/P24 Ag 4thGn 04/01/21 04/01/21 04/01/21 18:20 20:06 21:00 WBC RBC Hgb Hct MCV MCH MCHC RDW Plt Count MPV Immature Gran % (Auto) Neut % (Auto) Lymph % (Auto) [place] % (Auto) Eos % (Auto) Baso % (Auto) Lymph # (Auto) [place] # (Auto) Eos # (Auto) Baso # (Auto) Abs Immat Gran (auto) Absolute Neuts (auto) Absolute Nucleated RBC Nucleated RBC % (auto) D-Dimer High Sensitivty O2 Saturation ABG pH at Pt Temp ABG pCO2 at Pt Temp ABG pO2 at Pt Temp ABG HCO3 ABG Base Excess (Actual) VBG pH VBG pCO2 VBG pO2 VBG HCO3 VBG O2 Saturation VBG Base Excess Sodium Potassium Chloride Carbon Dioxide Anion Gap BUN Creatinine Estim Creat Clear Calc Estimated GFR POC Glucose 289 H 389 H* Random Glucose Fasting Glucose Lactic Acid Calcium Magnesium Total Bilirubin AST ALT Alkaline Phosphatase Troponin I High Sens B-Natriuretic Peptide Total Protein Albumin Lipase TSH Acetone, Qual COVID-19 (ANA M) COVID-19 [employer] [facility] HIV 1&2 Ab/P24 Ag 4thGn Nonreactive 04/02/21 04/02/21 04/02/21 05:51 06:15 06:16 WBC 4.0 L RBC 3.59 L Hgb 9.9 L Hct 30.6 L MCV 85.2 MCH 27.6 MCHC 32.4 RDW 14.7 Plt Count 209 MPV 10.4 Immature Gran % (Auto) Neut % (Auto) Lymph % (Auto) [place] % (Auto) Eos % (Auto) Baso % (Auto) Lymph # (Auto) [place] # (Auto) Eos # (Auto) Baso # (Auto) Abs Immat Gran (auto) Absolute Neuts (auto) Absolute Nucleated RBC 0.000 Nucleated RBC % (auto) 0.0 D-Dimer High Sensitivty O2 Saturation ABG pH at Pt Temp ABG pCO2 at Pt Temp ABG pO2 at Pt Temp ABG HCO3 ABG Base Excess (Actual) VBG pH VBG pCO2 VBG pO2 VBG HCO3 VBG O2 Saturation VBG Base Excess Sodium 140 Potassium 3.8 Chloride 103 Carbon Dioxide 30 H Anion Gap 11 L BUN 13 Creatinine 1.01 Estim Creat Clear Calc 88.4 Estimated GFR > 60 POC Glucose 282 H Random Glucose Fasting Glucose 274 H Lactic Acid Calcium 7.6 L Magnesium 1.5 L Total Bilirubin AST ALT Alkaline Phosphatase Troponin I High Sens B-Natriuretic Peptide Total Protein Albumin Lipase TSH Acetone, Qual COVID-19 (ANA M) COVID-19 [employer] [facility] HIV 1&2 Ab/P24 Ag 4thGn 04/02/21 04/02/21 10:50 11:11 WBC RBC Hgb Hct MCV MCH MCHC RDW Plt Count MPV Immature Gran % (Auto) Neut % (Auto) Lymph % (Auto) [place] % (Auto) Eos % (Auto) Baso % (Auto) Lymph # (Auto) [place] # (Auto) Eos # (Auto) Baso # (Auto) Abs Immat Gran (auto) Absolute Neuts (auto) Absolute Nucleated RBC Nucleated RBC % (auto) D-Dimer High Sensitivty O2 Saturation ABG pH at Pt Temp ABG pCO2 at Pt Temp ABG pO2 at Pt Temp ABG HCO3 ABG Base Excess (Actual) VBG pH VBG pCO2 VBG pO2 VBG HCO3 VBG O2 Saturation VBG Base Excess Sodium Potassium Chloride Carbon Dioxide Anion Gap BUN Creatinine Estim Creat Clear Calc Estimated GFR POC Glucose 68 152 H Random Glucose Fasting Glucose Lactic Acid Calcium Magnesium Total Bilirubin AST ALT Alkaline Phosphatase Troponin I High Sens B-Natriuretic Peptide Total Protein Albumin Lipase TSH Acetone, Qual COVID-19 (ANA M) COVID-19 Clin Com HIV 1&2 Ab/P24 Ag 4thGn Airway Mallampati Class: III TM Dist: >3cm Neck ROM: Full Loose/Missing/Broken Teeth: Yes Heart: rrr Lungs: bl breath sounds Assessment and Plan Assessment Anesthesia Assessment: Anesthesia Plan Discussed and Chart Reviewed Final Anesthetic Review Family History of Problems with Anesthesia: No History of Problems with Anesthesia: No NPO: Yes ASA Class: III Final Preanesthetic Review: Meds/Allgs Chart Reviewed, Consent Obtained/Reviewed and Anes Risks/Benef Reviewed Patient Risk: High Procedure Risk: High Anesthetic Plan Anesthetic Plan: GA Disposition: Inp. Admit - Standard Bed
[2021-04-02 13:46] LABS: Glucose, Whole Blood 118 mg/dL (60-115)
[2021-04-02 16:35] LABS: Glucose, Whole Blood 320 mg/dL (60-115)
[2021-04-02] MEDS: Morphine Sulfate 2 MG/ML CARTRIDGE IVPUSH ×2 (16:46→22:32)
[2021-04-02 20:06] LABS: Glucose, Whole Blood 383 mg/dL (60-115)
--- NOTE | 2021-04-02 22:20 | P.BOP_ITS ---
Brief Operative Note Date of Service: 04/02/21 Pre-op diagnosis: Pulmonary cavity, cavitary pneumonia Post-op diagnosis: same Procedure: bronchoscopy with washings, brushings and transbronchial biopsies of the right upper lobe anterior segment Surgeon: Travis Mcnally MD Anesthesia: GLMA Was an Garment [employer] used for this Procedure?: No Estimated blood loss (mL): 0 Pathology: other ( right upper lobe transbronchial biopsies) Condition: stable Disposition: floor
[2021-04-02] MEDS: Insulin Glargine,Hum.rec.anlog 100 UNIT/ML 10 ML VIAL 30 UNIT SUBCUT (22:34)
[2021-04-03] VITALS (7 sets, daily range): BP systolic 133–165; BP diastolic 73–95; PULSE 70–86; RESP 16–18; TEMP 36.2–36.6; O2SAT 97–100
[2021-04-03] MEDS: Insulin Lispro 100 UNIT/ML 3 ML VIAL 15 UNIT SUBCUT (02:40)
[2021-04-03] MEDS: Morphine Sulfate 2 MG/ML CARTRIDGE IVPUSH ×4 (02:50→20:40)
[2021-04-03 05:33] LABS: Glucose, Whole Blood 459 mg/dL (60-115)
[2021-04-03 05:50] LABS: Glucose, Whole Blood 393 mg/dL (60-115)
[2021-04-03 06:02] LABS: Hematocrit 33.9 % (42.0-52.0); Hemoglobin 10.8 g/dl (14.0-18.0); Mean Corpuscular HGB Conc 31.9 g/dl (31.0-36.0); Mean Corpuscular Hemoglobin 27.4 pg (27.0-33.0); Mean Platelet Volume 10.9 fL (9.4-12.4); Platelet Count 285 X10*3/uL (160-400); Red Blood Count 3.94 X10*6/uL (4.60-5.80); Red Cell Distribution Width 14.7 % (11.0-16.0); White Blood Count 9.4 X10*3/uL (4.8-10.8)
[2021-04-03] MEDS: Ampicillin Sodium/Sulbactam Na 3 GM in 0.9 % Sodium Chloride 100 ML IV ×4 (06:11→23:03)
[2021-04-03] MEDS: Omeprazole 20 MG CAPSULE.DR PO (06:11)
[2021-04-03] MEDS: Insulin Lispro 100 UNIT/ML 3 ML VIAL 10 UNIT SUBCUT (06:11)
[2021-04-03] MEDS: Ketorolac Tromethamine 15 MG/ML VIAL IVPUSH (06:12)
[2021-04-03 06:15] LABS: Magnesium 1.9 mg/dL (1.6-2.6)
[2021-04-03 06:28] LABS: Anion Gap 15 (12-20); Blood Urea Nitrogen 20 mg/dL (9-16); Calcium 8.2 mg/dL (8.4-10.2); Carbon Dioxide 26 mmol/L (22-29); Chloride 97 mmol/L (96-108); Creatinine Clr Calc Pharmacy 62.8; Estimated Glomerular Filt Rate 54; Glucose Random 469 mg/dL (60-115); Potassium 4.7 mmol/L (3.3-5.1); Sodium 133 mmol/L (135-145)
--- NOTE | 2021-04-03 07:33 | HO.POSTANES ---
Post Anesthesia Evaluation Post Anesthesia Evaluation Vital Signs: Vital Signs Temp Pulse Resp BP Pulse Ox 04/03/21 04:00 97.6 F 86 16 148/88 H 97 04/02/21 23:41 97.4 F 88 15 155/86 H 99 04/02/21 19:44 97.0 F 80 18 128/83 97 Anesthesia: General Endotracheal-GETA Mental Status: Awake Pain Control: Satisfactory Nausea/Vomiting: None Hydration: Adequate Anesthesia-Related Issues: No Anes. Related Issues
[2021-04-03 07:45] LABS: Glucose, Whole Blood 311 mg/dL (60-115)
[2021-04-03] MEDS: Multivitamin TABLET 1 TAB PO (08:46)
[2021-04-03] MEDS: Aspirin Enteric Coated 81 MG TABLET.DR PO (08:47)
[2021-04-03] MEDS: Magnesium Oxide 400 MG TABLET PO ×2 (08:47→16:54)
[2021-04-03] MEDS: amLODIPine Besylate 5 MG TABLET PO (08:47)
[2021-04-03] MEDS: Insulin Lispro 100 UNIT/ML 3 ML VIAL SUBCUT ×3 (08:47→20:41)
[2021-04-03] MEDS: Gabapentin 600 MG TABLET PO ×2 (08:47→20:39)
[2021-04-03] MEDS: 0.9 % Sodium Chloride Flush 3 ML SYRINGE IVFLUSH ×2 (08:48→14:35)
--- NOTE | 2021-04-03 09:40 | PM.PNPUL ---
Subjective Subjective Date of Service: 04/03/21 Interval history: the patient was seen on exam for vitals post bronchoscopy doing well. Denies any hemoptysis. His on room air after his bronchoscopy. bronchoscopy more suspicious for infectious process. Objective Data Labs CBC & Chem 7: 04/03/21 05:30 04/03/21 05:30 Labs: Laboratory Results - last 24 hr 04/02/21 04/02/21 04/02/21 10:50 11:11 13:43 WBC RBC Hgb Hct MCV MCH MCHC RDW Plt Count MPV Absolute Nucleated RBC Nucleated RBC % (auto) Sodium Potassium Chloride Carbon Dioxide Anion Gap BUN Creatinine Estim Creat Clear Calc Estimated GFR POC Glucose 68 152 H 118 H Random Glucose Calcium Magnesium 04/02/21 04/02/21 04/03/21 16:17 19:49 01:48 WBC RBC Hgb Hct MCV MCH MCHC RDW Plt Count MPV Absolute Nucleated RBC Nucleated RBC % (auto) Sodium Potassium Chloride Carbon Dioxide Anion Gap BUN Creatinine Estim Creat Clear Calc Estimated GFR POC Glucose 320 H 383 H* 459 H* Random Glucose Calcium Magnesium 04/03/21 04/03/21 04/03/21 05:30 05:30 05:30 WBC 9.4 RBC 3.94 L Hgb 10.8 L Hct 33.9 L MCV 86.0 MCH 27.4 MCHC 31.9 RDW 14.7 Plt Count 285 D MPV 10.9 Absolute Nucleated RBC 0.000 Nucleated RBC % (auto) 0.0 Sodium 133 L Potassium 4.7 D Chloride 97 Carbon Dioxide 26 Anion Gap 15 BUN 20 H D Creatinine 1.42 H Estim Creat Clear Calc 62.8 Estimated GFR 54 POC Glucose Random Glucose 469 H* Calcium 8.2 L D Magnesium 1.9 04/03/21 04/03/21 05:44 07:30 WBC RBC Hgb Hct MCV MCH MCHC RDW Plt Count MPV Absolute Nucleated RBC Nucleated RBC % (auto) Sodium Potassium Chloride Carbon Dioxide Anion Gap BUN Creatinine Estim Creat Clear Calc Estimated GFR POC Glucose 393 H* 311 H Random Glucose Calcium Magnesium Microbiology Microbiology Results: Microbiology 04/02/21 Unknown Bronch Rul Gram Stain - Final 04/02/21 Unknown Bronch Rul Routine Culture - Preliminary No growth to date. 04/02/21 Unknown Bronch Rul Gram Stain - Final 04/02/21 Unknown Brushing - [place] Rul Gram Stain - Final 04/02/21 Unknown Bronchial Brushings Fungal Identification - Final 03/31/21 04:12 Blood - Venous Blood Culture - Preliminary No growth after 48 hours. 03/31/21 04:12 Blood - Venous Blood Culture - Preliminary No growth after 48 hours. Review of Systems Review of Systems Constitutional: Fevers, chills, weight loss Eyes: denies blurry vision ENT: denies sore throat CVS: Chest pain when coughing Respiratory: Denies dyspnea GI: no abdominal pain : denies dysuria MSK: denies neck pain Skin: denies rash Neuro: denies specific motor weakness Psych: denies suicidal ideation Endocrine: denies heat/cold intolerance Hematologic: denies easy bleeding Allergy: denies hives Physical Exam Vital Signs: Vital Signs: Last Vital Signs Temp 97.2 F 04/03/21 07:45 Pulse 82 04/03/21 07:45 Resp 17 04/03/21 07:45 BP 165/95 H 04/03/21 07:45 Pulse Ox 98 04/03/21 07:45 BMI result Body Mass Index 27.3 Const: General: alert Neck: Neck: Yes normal visual inspection, Yes full ROM and Yes no lymphadenopathy Chest: Chest palpation & inspection: normal inspection of the chest Resp: Auscultation: diminished lung sounds Cardio: Rate: regular rate Rhythm: regular rhythm Heart sounds: S1 normal heart sound present and S2 normal heart sound present GI: Palpation (GI): Soft to palpation and nontender Auscultation: normal bowel sounds Skin: General skin exam: rashes and/or lesions noted Procedures Date of Service Date of Service: 04/03/21 Assessment and Plan Assessment and plan (1) Cavitary pneumonia: Status: Acute (2) Cavitary lesion of lung: Status: Acute Plan awaiting microbiology results, cultures, AFB and fungal Awaiting pathology and cytology continue antibiotics Time Spent With Patient Time: Total time spent is greater than 50% in coordination of care (as documented) at patient's floor/unit and/or counseling patient: Time with patient: 15 - 24 minutes Progress Note: Quality Stroke Does the patient have a stroke diagnosis?: No
--- NOTE | 2021-04-03 10:18 | OP_ITS ---
SURGEON: Travis Mcnally MD PREOPERATIVE DIAGNOSIS: POSTOPERATIVE DIAGNOSIS: PROCEDURE PERFORMED: Bronchoscopy, washings, brushings, and transbronchial biopsies of the right upper lobe. ESTIMATED BLOOD LOSS: COMPLICATIONS: ANESTHESIA: LMA. ASSISTANTS: SPECIMENS: ASA CLASSIFICATION: 3. PREOPERATIVE DIAGNOSES: Cavitary lesion, cavitary pneumonia. POSTOPERATIVE DIAGNOSES: Cavitary lesion, cavitary pneumonia. DESCRIPTION OF PROCEDURE: After the patient was adequately sedated, the flexible digital bronchoscope was inserted via the LMA to the level of the larynx. The vocal cords moved symmetrically to the midline without any lesions or masses. After instilling lidocaine, the bronchoscope was then passed through vocal cords to the level of the trachea. The trachea appeared normal. After instilling additional lidocaine, the bronchoscope was then navigated to the entire tracheobronchial tree that was examined to the subsegmental level. There was moderate degree of mucoid and purulent secretions primarily from the right upper lobe, primarily from the anterior segment. The bronchoscope was then navigated to the right upper lobe where brushings and washings were done. Then, transbronchial biopsies were collected as well, sent both in formalin and also in sterile water for culture. The bronchoscope was then removed. The total endoscopic time approximately 20 minutes. Patient tolerated the procedure well. Vital signs were stable. INTERPRETATION: Bronchoscopy with washings, brushings, and also transbronchial biopsies of the anterior segment of the right upper lobe. Post procedure x-ray demonstrated no evidence of any pneumothorax. MD ZENON Reyes/LAVINIA / [id number]
[2021-04-03 10:32] LABS: MRSA Nasal PCR NEGATIVE (Negative); SA Nasal PCR POSITIVE (Negative)
--- NOTE | 2021-04-03 10:56 | HO.PM.IMPN ---
Subjective Subjective Date of Service: 04/03/21 Interval History: The patient was seen and evaluated this morning Laying in bed, right side of his chest Pain improving Denies any fever, chills or shortness of breath Blood cultures remain negative No reported other overnight events. Systemic review: No fever, chills or weakness right-sided chest pain, no palpitations No shortness of breath or coughing No abdominal pain, nausea or vomiting No urinary symptoms No any rash or wounds Physical Exam Vital Signs: Vital Signs: Last Vital Signs Temp 97.2 F 04/03/21 07:45 Pulse 82 04/03/21 07:45 Resp 17 04/03/21 07:45 BP 165/95 H 04/03/21 07:45 Pulse Ox 98 04/03/21 07:45 BMI result Body Mass Index 27.3 Const: Other: Constitutional : Alert, oriented, not in distress Neck : Normal inspection, Supple Cardiovascular : RRR, S1 S2, no lower extremity edema Respiratory : decreased bilateral air entry mainly at the right side, basal fine crackles, wheezes or rhonchi Gastrointestinal: soft, lax, Normal bowel sounds, Non tender Skin : Warm, Dry Neurological : Alert & oriented x3, No focal deficit Objective Data Active Medications Acetaminophen (Acetaminophen 325 Mg Tablet) 650 mg PO Q6H PRN PRN Reason: Pain, Mild (Pain Scale 1-3) Last Admin: 04/01/21 17:24 Dose: 650 mg Documented by: GINA Amlodipine Besylate (Amlodipine Besylate 5 Mg Tablet) 5 mg PO DAILY [facility]; Protocol Last Admin: 04/03/21 08:47 Dose: 5 mg Documented by: LINDA Aspirin (Aspirin Enteric Coated 81 Mg Tablet.Dr) 81 mg PO DAILY [facility] Last Admin: 04/03/21 08:47 Dose: 81 mg Documented by: LINDA Dextrose (Dextrose 50 % 25 Gm/50 Ml Syringe) 25 gm IVPUSH Q15M PRN; Protocol PRN Reason: per Hypoglycemia Standing Ord. Last Admin: 04/02/21 10:56 Dose: 25 gm Documented by: RAFAEL Enoxaparin Sodium (Enoxaparin Sodium 40 Mg/0.4 Ml Syringe) 40 mg SUBCUT Q24H [facility] Last Admin: 04/01/21 08:18 Dose: 40 mg Documented by: GINA Gabapentin (Gabapentin 600 Mg Tablet) 600 mg PO BID [facility] Last Admin: 04/03/21 08:47 Dose: 600 mg Documented by: LINDA Gabapentin (Gabapentin 300 Mg Capsule) 300 mg PO DAILY@1200 [facility] Last Admin: 04/02/21 11:06 Dose: 300 mg Documented by: RAFAEL Glucose (Glucose Gel 15 Gm Gel..Gram.) 15 gm PO Q15M PRN; Protocol PRN Reason: per Hypoglycemia Standing Ord. Ampicillin Sodium/Sulbactam (Sodium 3 gm/ Sodium Chloride) 100 mls @ 200 mls/hr IV Q6H [facility] Last Infusion: 04/03/21 06:50 Dose: 200 mls/hr Documented by: SUMEET Insulin Glargine (Insulin Glargine,Hum.Rec.Anlog 100 Unit/Ml 10 Ml Vial) 30 unit SUBCUT BEDTIME [facility] Last Admin: 04/02/21 22:34 Dose: 30 unit Documented by: SUMEET Insulin Human Lispro (Insulin Lispro 100 Unit/Ml 3 Ml Vial) 0.1 - 10 unit SUBCUT QIDACHS [facility]; Protocol Last Admin: 04/03/21 08:47 Dose: 8 unit Documented by: LINDA Magnesium Oxide (Magnesium Oxide 400 Mg Tablet) 400 mg PO BIDPC [facility] Last Admin: 04/03/21 08:47 Dose: 400 mg Documented by: LINDA Morphine Sulfate (Morphine Sulfate 2 Mg/Ml Cartridge) 2 mg IVPUSH Q4H PRN; Protocol PRN Reason: Pain, Severe (Pain Scale 7-10) Last Admin: 04/03/21 08:58 Dose: 2 mg Documented by: LINDA Multivitamins/Vitamin C (Multivitamin Tablet) 1 tab PO DAILY [facility] Last Admin: 04/03/21 08:46 Dose: 1 tab Documented by: LINDA Omeprazole (Omeprazole 20 Mg Capsule.) 20 mg PO DAILY@0630 [facility] Last Admin: 04/03/21 06:11 Dose: 20 mg Documented by: SUMEET Sodium Chloride (0.9 % Sodium Chloride Flush 3 Ml Syringe) 3 ml IVFLUSH QSHIFT [facility] Last Admin: 04/03/21 08:48 Dose: 3 ml Documented by: LINDA Labs CBC & Chem 7: 04/03/21 05:30 04/03/21 05:30 Labs: Laboratory Results - last 24 hr 04/02/21 04/02/21 04/02/21 11:11 13:43 16:17 MCV MCH MCHC RDW Plt Count MPV Absolute Nucleated RBC Nucleated RBC % (auto) Anion Gap Estim Creat Clear Calc Estimated GFR POC Glucose 152 H 118 H 320 H Random Glucose Calcium Magnesium 04/02/21 04/03/21 04/03/21 19:49 01:48 05:30 MCV MCH MCHC RDW Plt Count MPV Absolute Nucleated RBC Nucleated RBC % (auto) Anion Gap Estim Creat Clear Calc Estimated GFR POC Glucose 383 H* 459 H* Random Glucose Calcium Magnesium 1.9 04/03/21 04/03/21 04/03/21 05:30 05:30 05:44 MCV 86.0 MCH 27.4 MCHC 31.9 RDW 14.7 Plt Count 285 D MPV 10.9 Absolute Nucleated RBC 0.000 Nucleated RBC % (auto) 0.0 Anion Gap 15 Estim Creat Clear Calc 62.8 Estimated GFR 54 POC Glucose 393 H* Random Glucose 469 H* Calcium 8.2 L D Magnesium 04/03/21 07:30 MCV MCH MCHC RDW Plt Count MPV Absolute Nucleated RBC Nucleated RBC % (auto) Anion Gap Estim Creat Clear Calc Estimated GFR POC Glucose 311 H Random Glucose Calcium Magnesium Microbiology Microbiology Results: Microbiology 04/02/21 Unknown Gram Stain - Final Bronch Rul Routine Culture - Preliminary No growth to date. 04/02/21 Unknown Gram Stain - Final Bronch Rul 04/02/21 Unknown Gram Stain - Final Brushing - [place] Rul 04/02/21 Unknown Fungal Identification - Final Bronchial Brushings 03/31/21 04:12 Blood Culture - Preliminary Blood - Venous No growth after 48 hours. 03/31/21 04:12 Blood Culture - Preliminary Blood - Venous No growth after 48 hours. Assessment and Plan (1) Cavitary pneumonia: Status: Acute (2) Diabetes: Status: Acute (3) NEELA (acute kidney injury): Status: Acute (4) Sepsis: Status: Acute Plan 45-year-old male presented with cough, found to be septic with acute kidney injury Sepsis due to right upper lobe cavitary pneumonia Suspect bacterial, Possibly aspiration inpatient with moderate alcohol use improving. continue IV Unasyn id input appreciated Follow-up cultures - no growth in blood so far bronchoscopy pending biopsies and cultures ?T spot pending,? HIV? negative ?sputum for AFB daily for 3 specimens to remove TB precautions Acute kidney injury worsened to 1.6 hold lisinopril Diabetes with hyperglycemia Basal bolus insulin hypomagnesemia Replace and monitor HTN lisinopril on hold continue amlodipine Anemia Likely inflammatory with ongoing infection Monitor DVT prophylaxis with Lovenox Quality Stroke Does the patient have a stroke diagnosis?: No VTE Prior VTE?: No VTE Risk Level:: Medical - moderate - high VTE Device Contraindication: Treatment Not Indicated VTE Drug Contraindication: N/A - Med Ordered
[2021-04-03 11:25] LABS: Glucose, Whole Blood 123 mg/dL (60-115)
[2021-04-03] MEDS: Gabapentin 300 MG CAPSULE PO (12:00)
[2021-04-03] MEDS: Acetaminophen 325 MG TABLET 650 MG PO (14:35)
--- NOTE | 2021-04-03 14:44 | MHC.CM.PN ---
PATIENT EXPECTED TO REMAIN A FEW MORE DAYS FOR IV ABX. PLAN WILL BE HOME WITH [facility] [employer] (APPROVED BY [facility])
[2021-04-03] MEDS: Sodium Chloride 3 % Inhalation 15 ML VIAL.NEB INHALE (15:47)
[2021-04-03 16:30] LABS: Glucose, Whole Blood 210 mg/dL (60-115)
[2021-04-03] MEDS: Artificial Tears 15 ML DROPS 1 DROP EYE-BOTH (16:52)
[2021-04-03 20:10] LABS: Glucose, Whole Blood 234 mg/dL (60-115)
[2021-04-03] MEDS: Insulin Glargine,Hum.rec.anlog 100 UNIT/ML 10 ML VIAL 30 UNIT SUBCUT (20:40)
[2021-04-03] MEDS: traZODone HCL 25 MG HALFTAB 12.5 MG PO (23:02)
[2021-04-04] MEDS: Morphine Sulfate 2 MG/ML CARTRIDGE IVPUSH ×4 (00:03→23:50)
[2021-04-04] MEDS: 0.9 % Sodium Chloride Flush 3 ML SYRINGE IVFLUSH ×3 (00:04→23:27)
[2021-04-04 03:58] VITALS: BP 153/97; PULSE 75; RESP 18; TEMP 36.6; O2SAT 97
[2021-04-04] MEDS: Ampicillin Sodium/Sulbactam Na 3 GM in 0.9 % Sodium Chloride 100 ML IV ×4 (04:52→22:50)
[2021-04-04] MEDS: Omeprazole 20 MG CAPSULE.DR PO (05:33)
[2021-04-04 05:51] LABS: Hematocrit 31.2 % (42.0-52.0); Hemoglobin 9.8 g/dl (14.0-18.0); Mean Corpuscular HGB Conc 31.4 g/dl (31.0-36.0); Mean Corpuscular Hemoglobin 27.2 pg (27.0-33.0); Mean Corpuscular Volume 86.7 fL (80.0-98.0); Mean Platelet Volume 10.3 fL (9.4-12.4); Platelet Count 242 X10*3/uL (160-400); Red Cell Distribution Width 15.1 % (11.0-16.0)
[2021-04-04 06:12] LABS: Anion Gap 12 (12-20); Blood Urea Nitrogen 22 mg/dL (9-16); Calcium 7.8 mg/dL (8.4-10.2); Carbon Dioxide 27 mmol/L (22-29); Chloride 102 mmol/L (96-108); Creatinine Clr Calc Pharmacy 81.9; Estimated Glomerular Filt Rate > 60; Glucose Random 295 mg/dL (60-115); Potassium 4.3 mmol/L (3.3-5.1); Sodium 137 mmol/L (135-145)
[2021-04-04 07:34] LABS: Glucose, Whole Blood 255 mg/dL (60-115)
[2021-04-04 07:45] VITALS: BP 152/87; PULSE 76; RESP 18; TEMP 36; O2SAT 96
[2021-04-04] MEDS: Enoxaparin Sodium 40 MG/0.4 ML SYRINGE SUBCUT (07:53)
[2021-04-04] MEDS: Magnesium Oxide 400 MG TABLET PO ×2 (07:53→16:37)
[2021-04-04] MEDS: Aspirin Enteric Coated 81 MG TABLET.DR PO (07:53)
[2021-04-04] MEDS: Multivitamin TABLET 1 TAB PO (07:53)
[2021-04-04] MEDS: amLODIPine Besylate 5 MG TABLET PO (07:53)
[2021-04-04] MEDS: Gabapentin 600 MG TABLET PO ×2 (07:53→21:03)
[2021-04-04] MEDS: Insulin Lispro 100 UNIT/ML 3 ML VIAL SUBCUT ×4 (07:58→21:03)
--- NOTE | 2021-04-04 10:00 | P.PNPL_ITS ---
Subjective Subjective Date of Service: 04/04/21 Interval history: The patient was seen on exam. The patient is feeling well. The transbronchial biopsies were consistent with necrotic tissue and abscess. This consistent with a cavitary pneumonia and lung abscess. Cultures are still pending. T spot negative. If these are pending. Once the AFBs are back in at least a couple are negative he can be taken off precautions. The patient should continue antibiotics until the cavity closes which will take around 6-8 weeks. Will set up a follow-up as an outpatient pulmonary. Objective Data Labs CBC & Chem 7: 04/04/21 05:27 04/04/21 05:27 Labs: Laboratory Results - last 24 hr 04/03/21 04/03/21 04/03/21 09:05 11:21 16:26 WBC RBC Hgb Hct MCV MCH MCHC RDW Plt Count MPV Absolute Nucleated RBC Nucleated RBC % (auto) Sodium Potassium Chloride Carbon Dioxide Anion Gap BUN Creatinine Estim Creat Clear Calc Estimated GFR POC Glucose 123 H 210 H Random Glucose Calcium Nasal Screen MRSA (PCR) NEGATIVE Nasal S. aureus Screen POSITIVE A Nasal MRSA/S.aureus Interp SEE NOTE 04/03/21 04/04/21 04/04/21 20:01 05:27 05:27 WBC 8.0 RBC 3.60 L Hgb 9.8 L Hct 31.2 L MCV 86.7 MCH 27.2 MCHC 31.4 RDW 15.1 Plt Count 242 MPV 10.3 Absolute Nucleated RBC 0.000 Nucleated RBC % (auto) 0.0 Sodium 137 Potassium 4.3 Chloride 102 Carbon Dioxide 27 Anion Gap 12 BUN 22 H Creatinine 1.09 Estim Creat Clear Calc 81.9 Estimated GFR > 60 POC Glucose 234 H Random Glucose 295 H D Calcium 7.8 L Nasal Screen MRSA (PCR) Nasal S. aureus Screen Nasal MRSA/S.aureus Interp 04/04/21 07:27 WBC RBC Hgb Hct MCV MCH MCHC RDW Plt Count MPV Absolute Nucleated RBC Nucleated RBC % (auto) Sodium Potassium Chloride Carbon Dioxide Anion Gap BUN Creatinine Estim Creat Clear Calc Estimated GFR POC Glucose 255 H Random Glucose Calcium Nasal Screen MRSA (PCR) Nasal S. aureus Screen Nasal MRSA/S.aureus Interp Microbiology Microbiology Results: Microbiology 04/02/21 Unknown Bronch Rul Gram Stain - Final 04/02/21 Unknown Bronch Rul Routine Culture - Final No growth after 2 days 04/02/21 Unknown Brushing - [place] Rul Gram Stain - Final 04/02/21 Unknown Brushing - [place] Rul Routine Culture - Preliminary Culture in progress. 04/02/21 Unknown Bronch Rul Gram Stain - Final 04/02/21 Unknown Bronch Rul Routine Culture - Preliminary Culture in progress. 04/02/21 Unknown Bronchial Brushings Fungal Identification - Final 03/31/21 04:12 Blood - Venous Blood Culture - Preliminary No growth after 48 hours. 03/31/21 04:12 Blood - Venous Blood Culture - Preliminary No growth after 48 hours. Review of Systems Constitutional: Denies fever(s) Eyes: Denies change in vision Denies nasal discharge Cardiovascular: Denies chest pain Respiratory: Reports cough and Denies hemoptysis Gastrointestinal: Reports no additional gastrointestinal complaints Musculoskeletal: Reports no additional musculoskeletal complaints Physical Exam Vital Signs: Vital Signs: Last Vital Signs Temp 96.8 F 04/04/21 07:45 Pulse 76 04/04/21 07:45 Resp 18 04/04/21 07:45 BP 152/87 H 04/04/21 07:45 Pulse Ox 96 04/04/21 07:45 BMI result Body Mass Index 27.3 Const: General: alert Neck: Neck: Yes normal visual inspection, Yes full ROM and Yes no lymphadenopathy Chest: Chest palpation & inspection: normal inspection of the chest Resp: Auscultation: diminished lung sounds Cardio: Rate: regular rate Rhythm: regular rhythm Heart sounds: S1 normal heart sound present and S2 normal heart sound present GI: Palpation (GI): Soft to palpation and nontender Auscultation: normal bowel sounds Skin: General skin exam: rashes and/or lesions noted Procedures Date of Service Date of Service: 04/04/21 Assessment and Plan Assessment and plan (1) Cavitary pneumonia: Status: Acute (2) Lung abscess: Status: Acute Plan Continue Unasyn as per ID. Likely then switch patient to Augmentin. Will likely need a antibiotics until closure of the cavity Awaiting fungal AFB cultures awaiting Gram stain cultures Okay to remove airborne precautions once AFB stains are confirm negative Will follow-up as an outpatient in a couple weeks after being discharged Time Spent With Patient Time: Total time spent is greater than 50% in coordination of care (as documented) at patient's floor/unit and/or counseling patient: Time with patient: 15 - 24 minutes Progress Note: Quality Stroke Does the patient have a stroke diagnosis?: No
--- NOTE | 2021-04-04 10:25 | HO.PM.IMPN ---
Subjective Subjective Date of Service: 04/04/21 Interval History: The patient was seen and evaluated this morning Laying in bed, right side of his chest Pain improving Denies any fever, chills or shortness of breath Blood cultures remain negative No reported other overnight events. Systemic review: No fever, chills or weakness right-sided chest pain, no palpitations No shortness of breath or coughing No abdominal pain, nausea or vomiting No urinary symptoms No any rash or wounds Physical Exam Vital Signs: Vital Signs: Last Vital Signs Temp 96.8 F 04/04/21 07:45 Pulse 76 04/04/21 07:45 Resp 18 04/04/21 07:45 BP 152/87 H 04/04/21 07:45 Pulse Ox 96 04/04/21 07:45 BMI result Body Mass Index 27.3 Const: Other: Constitutional : Alert, oriented, not in distress Neck : Normal inspection, Supple Cardiovascular : RRR, S1 S2, no lower extremity edema Respiratory : decreased bilateral air entry mainly at the right side, basal fine crackles, wheezes or rhonchi Gastrointestinal: soft, lax, Normal bowel sounds, Non tender Skin : Warm, Dry Neurological : Alert & oriented x3, No focal deficit Objective Data Active Medications Acetaminophen (Acetaminophen 325 Mg Tablet) 650 mg PO Q6H PRN PRN Reason: Pain, Mild (Pain Scale 1-3) Last Admin: 04/03/21 14:35 Dose: 650 mg Documented by: LINDA Amlodipine Besylate (Amlodipine Besylate 5 Mg Tablet) 5 mg PO DAILY [facility]; Protocol Last Admin: 04/04/21 07:53 Dose: 5 mg Documented by: ANIYA Artificial Tears (Artificial Tears 15 Ml Drops) 1 drop EYE-BOTH Q4H PRN PRN Reason: Dry Eyes Last Admin: 04/03/21 16:52 Dose: 1 drop Documented by: LINDA Aspirin (Aspirin Enteric Coated 81 Mg Tablet.Dr) 81 mg PO DAILY [facility] Last Admin: 04/04/21 07:53 Dose: 81 mg Documented by: ANIYA Dextrose (Dextrose 50 % 25 Gm/50 Ml Syringe) 25 gm IVPUSH Q15M PRN; Protocol PRN Reason: per Hypoglycemia Standing Ord. Last Admin: 04/02/21 10:56 Dose: 25 gm Documented by: RAFAEL Enoxaparin Sodium (Enoxaparin Sodium 40 Mg/0.4 Ml Syringe) 40 mg SUBCUT Q24H [facility] Last Admin: 04/04/21 07:53 Dose: 40 mg Documented by: ANIYA Gabapentin (Gabapentin 600 Mg Tablet) 600 mg PO BID [facility] Last Admin: 04/04/21 07:53 Dose: 600 mg Documented by: ANIYA Gabapentin (Gabapentin 300 Mg Capsule) 300 mg PO DAILY@1200 [facility] Last Admin: 04/03/21 12:00 Dose: 300 mg Documented by: LINDA Glucose (Glucose Gel 15 Gm Gel..Gram.) 15 gm PO Q15M PRN; Protocol PRN Reason: per Hypoglycemia Standing Ord. Ampicillin Sodium/Sulbactam (Sodium 3 gm/ Sodium Chloride) 100 mls @ 200 mls/hr IV Q6H [facility] Last Infusion: 04/04/21 05:40 Dose: 200 mls/hr Documented by: SUMEET Insulin Glargine (Insulin Glargine,Hum.Rec.Anlog 100 Unit/Ml 10 Ml Vial) 30 unit SUBCUT BEDTIME [facility] Last Admin: 04/03/21 20:40 Dose: 30 unit Documented by: SUMEET Insulin Human Lispro (Insulin Lispro 100 Unit/Ml 3 Ml Vial) 0.1 - 10 unit SUBCUT QIDACHS [facility]; Protocol Last Admin: 04/04/21 07:58 Dose: 6 unit Documented by: ANIYA [facility] ([facility] 400 Mg [facility]) [facility] Last Admin: 04/04/21 07:53 Dose: 400 mg Documented by: ANIYA Morphine Sulfate (Morphine Sulfate 2 Mg/Ml Cartridge) 2 mg IVPUSH Q4H PRN; Protocol PRN Reason: Pain, Severe (Pain Scale 7-10) Last Admin: 04/04/21 08:51 Dose: 2 mg Documented by: ANIYA Multivitamins/Vitamin C (Multivitamin Tablet) 1 tab PO DAILY [facility] Last Admin: 04/04/21 07:53 Dose: 1 tab Documented by: ANIYA Omeprazole (Omeprazole 20 Mg Capsule.) 20 mg PO DAILY@0630 [facility] Last Admin: 04/04/21 05:33 Dose: 20 mg Documented by: SUMEET Sodium Chloride (0.9 % Sodium Chloride Flush 3 Ml Syringe) 3 ml IVFLUSH QSHIFT [facility] Last Admin: 04/04/21 07:53 Dose: 3 ml Documented by: ANIYA Labs CBC & Chem 7: 04/04/21 05:27 04/04/21 05:27 Labs: Laboratory Results - last 24 hr 04/03/21 04/03/21 04/03/21 09:05 11:21 16:26 MCV MCH MCHC RDW Plt Count MPV Absolute Nucleated RBC Nucleated RBC % (auto) Anion Gap Estim Creat Clear Calc Estimated GFR POC Glucose 123 H 210 H Random Glucose Calcium Nasal Screen MRSA (PCR) NEGATIVE Nasal S. aureus Screen POSITIVE A Nasal MRSA/S.aureus Interp SEE NOTE 04/03/21 04/04/21 04/04/21 20:01 05:27 05:27 MCV 86.7 MCH 27.2 MCHC 31.4 RDW 15.1 Plt Count 242 MPV 10.3 Absolute Nucleated RBC 0.000 Nucleated RBC % (auto) 0.0 Anion Gap 12 Estim Creat Clear Calc 81.9 Estimated GFR > 60 POC Glucose 234 H Random Glucose 295 H D Calcium 7.8 L Nasal Screen MRSA (PCR) Nasal S. aureus Screen Nasal MRSA/S.aureus Interp 04/04/21 07:27 MCV MCH MCHC RDW Plt Count MPV Absolute Nucleated RBC Nucleated RBC % (auto) Anion Gap Estim Creat Clear Calc Estimated GFR POC Glucose 255 H Random Glucose Calcium Nasal Screen MRSA (PCR) Nasal S. aureus Screen Nasal MRSA/S.aureus Interp Microbiology Microbiology Results: Microbiology 04/02/21 Unknown Gram Stain - Final Bronch Rul Routine Culture - Final No growth after 2 days 04/02/21 Unknown Gram Stain - Final Brushing - [place] Rul Routine Culture - Preliminary Culture in progress. 04/02/21 Unknown Gram Stain - Final Bronch Rul Routine Culture - Preliminary Culture in progress. Assessment and Plan (1) Lung abscess: Status: Acute (2) Cavitary pneumonia: Status: Acute Plan 45-year-old male presented with cough, found to be septic with acute kidney injury Sepsis due to right upper lobe cavitary pneumonia Suspect bacterial, Possibly aspiration inpatient with moderate alcohol use ?improving. continue IV Unasyn ?id input appreciated: Treat for 7 days with IV antibiotics Follow-up cultures - no growth in blood so far bronchoscopy ? pending biopsies and cultures, prelim showing infectious etiology ?T spot pending,? HIV? negative ?sputum for AFB?smear daily for 2 specimens to remove TB precautions Acute kidney injury Improved back to normal ?hold lisinopril Diabetes with hyperglycemia Basal bolus insulin hypomagnesemia Replace and monitor HTN lisinopril on hold continue amlodipine Anemia Likely inflammatory with ongoing infection Monitor DVT prophylaxis with Lovenox Quality Stroke Does the patient have a stroke diagnosis?: No VTE Prior VTE?: No VTE Risk Level:: Medical - moderate - high VTE Device Contraindication: Treatment Not Indicated VTE Drug Contraindication: N/A - Med Ordered
[2021-04-04 11:27] LABS: Glucose, Whole Blood 173 mg/dL (60-115)
[2021-04-04 11:55] VITALS: BP 158/85; PULSE 81; RESP 18; TEMP 36.2; O2SAT 99
[2021-04-04] MEDS: Gabapentin 300 MG CAPSULE PO (12:01)
[2021-04-04 15:41] VITALS: BP 152/87; PULSE 81; RESP 17; TEMP 36.3; O2SAT 98
[2021-04-04 15:51] LABS: Glucose, Whole Blood 167 mg/dL (60-115)
[2021-04-04 17:46] LABS: TS Negative Control Passed; TS Panel A 0; TS Panel B 1; TS Positive Control Passed; TSpotTB Negative (SeeBelow)
[2021-04-04 20:00] VITALS: BP 159/95; PULSE 82; RESP 17; TEMP 36.2; O2SAT 96
[2021-04-04 20:15] LABS: Glucose, Whole Blood 193 mg/dL (60-115)
[2021-04-04] MEDS: Insulin Glargine,Hum.rec.anlog 100 UNIT/ML 10 ML VIAL 30 UNIT SUBCUT (21:03)
[2021-04-04 23:41] VITALS: BP 162/91; PULSE 88; RESP 20; TEMP 36.8; O2SAT 97
[2021-04-04] MEDS: traZODone HCL 25 MG HALFTAB PO (23:50)
[2021-04-05 03:30] VITALS: BP 167/93; PULSE 89; RESP 16; TEMP 36.7; O2SAT 98
[2021-04-05] MEDS: Ampicillin Sodium/Sulbactam Na 3 GM in 0.9 % Sodium Chloride 100 ML IV ×4 (05:17→22:10)
[2021-04-05] MEDS: Enoxaparin Sodium 40 MG/0.4 ML SYRINGE SUBCUT (05:50)
[2021-04-05] MEDS: Omeprazole 20 MG CAPSULE.DR PO (05:50)
[2021-04-05] MEDS: Morphine Sulfate 2 MG/ML CARTRIDGE IVPUSH ×5 (06:23→22:07)
[2021-04-05 07:29] VITALS: BP 177/86; PULSE 85; RESP 20; TEMP 36.2; O2SAT 98
[2021-04-05 08:00] LABS: Glucose, Whole Blood 281 mg/dL (60-115)
[2021-04-05] MEDS: Multivitamin TABLET 1 TAB PO (08:07)
[2021-04-05] MEDS: Insulin Lispro 100 UNIT/ML 3 ML VIAL SUBCUT ×3 (08:07→16:59)
[2021-04-05] MEDS: amLODIPine Besylate 5 MG TABLET PO (08:07)
[2021-04-05] MEDS: Aspirin Enteric Coated 81 MG TABLET.DR PO (08:07)
[2021-04-05] MEDS: Magnesium Oxide 400 MG TABLET PO ×2 (08:07→15:52)
[2021-04-05] MEDS: Gabapentin 600 MG TABLET PO ×2 (08:07→19:41)
[2021-04-05] MEDS: 0.9 % Sodium Chloride Flush 3 ML SYRINGE IVFLUSH ×3 (08:07→19:42)
[2021-04-05] MEDS: Gabapentin 300 MG CAPSULE PO (11:06)
[2021-04-05 11:15] LABS: Glucose, Whole Blood 223 mg/dL (60-115)
[2021-04-05 11:17] VITALS: BP 147/67; O2SAT 98
--- NOTE | 2021-04-05 12:27 | HO.PM.IMPN ---
Subjective Subjective Date of Service: 04/05/21 Interval History: The patient was seen and evaluated this morning Laying in bed, no reported pain Denies any fever, chills or shortness of breath No reported other overnight events. Systemic review: No fever, chills or weakness right-sided chest pain, no palpitations No shortness of breath or coughing No abdominal pain, nausea or vomiting No urinary symptoms No any rash or wounds Physical Exam Vital Signs: Vital Signs: Last Vital Signs Temp 97.2 F 04/05/21 07:29 Pulse 85 04/05/21 07:29 Resp 20 04/05/21 07:29 BP 147/67 H 04/05/21 11:17 Pulse Ox 98 04/05/21 11:17 BMI result Body Mass Index 27.3 Const: Other: Constitutional : Alert, oriented, not in distress Neck : Normal inspection, Supple Cardiovascular : RRR, S1 S2, no lower extremity edema Respiratory : For bilateral air entry, right-sided basis crackles, wheezes or rhonchi Gastrointestinal: soft, lax, Normal bowel sounds, Non tender Skin : Warm, Dry Neurological : Alert & oriented x3, No focal deficit Objective Data Active Medications Acetaminophen (Acetaminophen 325 Mg Tablet) 650 mg PO Q6H PRN PRN Reason: Pain, Mild (Pain Scale 1-3) Last Admin: 04/03/21 14:35 Dose: 650 mg Documented by: LINDA Amlodipine Besylate (Amlodipine Besylate 5 Mg Tablet) 5 mg PO DAILY [facility]; Protocol Last Admin: 04/05/21 08:07 Dose: 5 mg Documented by: WILLIAMS Artificial Tears (Artificial Tears 15 Ml Drops) 1 drop EYE-BOTH Q4H PRN PRN Reason: Dry Eyes Last Admin: 04/03/21 16:52 Dose: 1 drop Documented by: LINDA Aspirin (Aspirin Enteric Coated 81 Mg Tablet.Dr) 81 mg PO DAILY [facility] Last Admin: 04/05/21 08:07 Dose: 81 mg Documented by: WILLIAMS Dextrose (Dextrose 50 % 25 Gm/50 Ml Syringe) 25 gm IVPUSH Q15M PRN; Protocol PRN Reason: per Hypoglycemia Standing Ord. Last Admin: 04/02/21 10:56 Dose: 25 gm Documented by: RAFAEL Enoxaparin Sodium (Enoxaparin Sodium 40 Mg/0.4 Ml Syringe) 40 mg SUBCUT Q24H [facility] Last Admin: 04/05/21 05:50 Dose: 40 mg Documented by: HUDSON Gabapentin (Gabapentin 600 Mg Tablet) 600 mg PO BID [facility] Last Admin: 04/05/21 08:07 Dose: 600 mg Documented by: WILLIAMS Gabapentin (Gabapentin 300 Mg Capsule) 300 mg PO DAILY@1200 [facility] Last Admin: 04/05/21 11:06 Dose: 300 mg Documented by: WILLIAMS Glucose (Glucose Gel 15 Gm Gel..Gram.) 15 gm PO Q15M PRN; Protocol PRN Reason: per Hypoglycemia Standing Ord. Ampicillin Sodium/Sulbactam (Sodium 3 gm/ Sodium Chloride) 100 mls @ 200 mls/hr IV Q6H [facility] Last Infusion: 04/05/21 11:07 Dose: 0 mls/hr Documented by: WILLIAMS Insulin Glargine (Insulin Glargine,Hum.Rec.Anlog 100 Unit/Ml 10 Ml Vial) 30 unit SUBCUT BEDTIME [facility] Last Admin: 04/04/21 21:03 Dose: 30 unit Documented by: AMANDA Insulin Human Lispro (Insulin Lispro 100 Unit/Ml 3 Ml Vial) 0.1 - 10 unit SUBCUT QIDACHS [facility]; Protocol Last Admin: 04/05/21 11:24 Dose: 4 unit Documented by: WILLIAMS [facility] ([facility] 400 [facility]t) [facility] Last Admin: 04/05/21 08:07 Dose: 400 mg Documented by: WILLIAMS Morphine Sulfate (Morphine Sulfate 2 Mg/Ml Cartridge) 2 mg IVPUSH Q4H PRN; Protocol PRN Reason: Pain, Severe (Pain Scale 7-10) Last Admin: 04/05/21 10:24 Dose: 2 mg Documented by: WILLIAMS Multivitamins/Vitamin C (Multivitamin Tablet) 1 tab PO DAILY [facility] Last Admin: 04/05/21 08:07 Dose: 1 tab Documented by: WILLIAMS Omeprazole (Omeprazole 20 Mg Capsule.) 20 mg PO DAILY@0630 [facility] Last Admin: 04/05/21 05:50 Dose: 20 mg Documented by: HUDSON Sodium Chloride (0.9 % Sodium Chloride Flush 3 Ml Syringe) 3 ml IVFLUSH QSHIFT [facility] Last Admin: 04/05/21 08:07 Dose: 3 ml Documented by: WILLIAMS Labs CBC & Chem 7: 04/04/21 05:27 04/04/21 05:27 Labs: Laboratory Results - last 24 hr 04/02/21 04/04/21 04/04/21 06:16 15:45 20:11 POC Glucose 167 H 193 H TB Test (T-Spot) Com Negative TB Test Nil Control Passed TB Test Panel A 0 TB Test Panel B 1 TB Test Positive Cntrl Passed 04/05/21 04/05/21 07:28 10:53 POC Glucose 281 H 223 H TB Test (T-Spot) Com TB Test Nil Control TB Test Panel A TB Test Panel B TB Test Positive Cntrl Microbiology Microbiology Results: Microbiology 03/31/21 04:12 Blood Culture - Final Blood - Venous No growth after 5 days. 03/31/21 04:12 Blood Culture - Final Blood - Venous No growth after 5 days. 04/02/21 Unknown Nocardia Culture - Preliminary Bronchial Washings 04/02/21 Unknown Nocardia Culture - Preliminary Bronchial Brushings 04/02/21 Unknown Gram Stain - Final Bronch Rul Routine Culture - Final 04/02/21 Unknown Gram Stain - Final Brushing - [place] Rul Routine Culture - Final 04/02/21 Unknown Gram Stain - Final Bronch Rul Routine Culture - Final No growth after 2 days Assessment and Plan (1) Lung abscess: Status: Acute (2) Cavitary pneumonia: Status: Acute Plan 45-year-old male presented with cough, found to be septic with acute kidney injury Sepsis due to right upper lobe cavitary pneumonia Possibly aspiration inpatient with moderate alcohol use continue IV Unasyn ?id input appreciated: Treat for 7 days with IV antibiotics Follow-up cultures - no growth in blood so far bronchoscopy ? pending biopsies and cultures, prelim showing infectious etiology ?T spot negative,? HIV? negative Will take off airborne precautions Pending AFB?smear result from 2 samples Acute kidney injury Improved back to normal ?hold lisinopril Diabetes with hyperglycemia Basal bolus insulin hypomagnesemia Replace and monitor HTN lisinopril on hold continue amlodipine Anemia Likely inflammatory with ongoing infection Monitor DVT prophylaxis with Lovenox Quality Stroke Does the patient have a stroke diagnosis?: No VTE Prior VTE?: No VTE Risk Level:: Medical - moderate - high VTE Device Contraindication: Treatment Not Indicated VTE Drug Contraindication: N/A - Med Ordered
[2021-04-05 15:24] VITALS: PULSE 89; RESP 18; TEMP 36.5; O2SAT 96
[2021-04-05 15:49] LABS: Glucose, Whole Blood 168 mg/dL (60-115)
[2021-04-05] MEDS: Acetaminophen 325 MG TABLET 650 MG PO ×2 (15:52→23:02)
--- NOTE | 2021-04-05 19:19 | PC.NURSE ---
Pt awoken for untouched dinner tray and update BP after pain med. Wylie reports feeling like my blood sugar is low . BG 81. BP 178/82. Pt eating from dinner tray.
[2021-04-05 19:20] LABS: Glucose, Whole Blood 81 mg/dL (60-115)
[2021-04-05] MEDS: Zolpidem Tartrate 5 MG TABLET PO (23:22)
[2021-04-05 23:30] LABS: Glucose, Whole Blood 117 mg/dL (60-115)
[2021-04-05 23:40] VITALS: BP 185/97; PULSE 87; RESP 17; TEMP 36.4; O2SAT 97
[2021-04-06] MEDS: Morphine Sulfate 2 MG/ML CARTRIDGE IVPUSH ×2 (02:31→07:41)
[2021-04-06 03:49] VITALS: BP 188/107; PULSE 88; RESP 17; TEMP 36.4; O2SAT 97
[2021-04-06] MEDS: Ampicillin Sodium/Sulbactam Na 3 GM in 0.9 % Sodium Chloride 100 ML IV (04:31)
[2021-04-06] MEDS: hydrALAZINE HCl 20 MG/ML VIAL 5 MG IVPUSH (04:31)
[2021-04-06] MEDS: Enoxaparin Sodium 40 MG/0.4 ML SYRINGE SUBCUT (05:09)
[2021-04-06] MEDS: Omeprazole 20 MG CAPSULE.DR PO (05:09)
[2021-04-06 07:35] LABS: Glucose, Whole Blood 365 mg/dL (60-115)
[2021-04-06 07:40] VITALS: BP 170/92
[2021-04-06] MEDS: 0.9 % Sodium Chloride Flush 3 ML SYRINGE IVFLUSH (07:40)
[2021-04-06] MEDS: Insulin Lispro 100 UNIT/ML 3 ML VIAL SUBCUT (07:40)
[2021-04-06] MEDS: Magnesium Oxide 400 MG TABLET PO (07:41)
[2021-04-06] MEDS: Aspirin Enteric Coated 81 MG TABLET.DR PO (07:41)
[2021-04-06] MEDS: Gabapentin 600 MG TABLET PO (07:41)
[2021-04-06] MEDS: Multivitamin TABLET 1 TAB PO (07:41)
[2021-04-06] MEDS: Insulin Glargine,Hum.rec.anlog 100 UNIT/ML 10 ML VIAL 10 UNIT SUBCUT (07:47)
[2021-04-06] MEDS: amLODIPine Besylate 5 MG TABLET PO (07:49)
[2021-04-06 07:52] VITALS: BP 157/60; PULSE 74; RESP 18; TEMP 36.2; O2SAT 92
--- NOTE | 2021-04-06 10:01 | P.DS_ITS ---
DS: Providers Provider Date of Service: 04/06/21 Date of admission: 03/31/21 06:46 Primary care physician: Unknown Physician Consults: 03/31/21 06:45 Consult to Infectious Diseases Routine Consulting Provider: Kaila Holland Reason for consultation: lung abscess 04/01/21 11:10 Consult to Pulmonology Routine Consulting Provider: Travis Mcnally Reason for consultation: rul cavitary lesion DS: Diagnosis Discharge Diagnosis (1) Lung abscess: Status: Acute (2) Cavitary pneumonia: Status: Acute (3) NEELA (acute kidney injury): Status: Acute (4) Sepsis: Status: Acute (5) Hypomagnesemia: Status: Acute (6) Hypokalemia: Status: Acute DS: Summary Hospital Course Hospital Course: Admission note HPI 45M presented with complaints of feeling unwell for about 1 month.? Patient is a vague historian, but states he has been feeling unwell.? He reports productive cough with yellow sputum, fevers, chills, weight loss.? He states that it he was treated with antibiotics at 1 point, does not remember which antibiotics or exact duration, but did start to feel better, but afterwards symptoms quickly resumed.? Patient return to ED at this point because he is fed up with his symptoms.? In ED he was found to be septic with fever and tachycardia.? CT chest showed right upper lobe cavitary lesion consistent with Infection.? He was also noted to have acute kidney injury with creatinine 1.46, hypokalemia and hypomagnesemia and anemia.? Patient denies any drug use.? He does report moderate alcohol use, says he drinks A few nips and 1-2 six-packs of beer approximately weekly. Hospital course The patient was admitted for treatment of Sepsis due to right upper lobe cavitary pneumonia. Concerns about possible TB so the patient was placed on airborne precautions until 2 samples of sputum were sent for AFB. T spot test came back negative and bronchoscopy was done with results showing inflammatory reaction. Pulmonology team of follow the patient recommended to discontinue pr ecautions as it is less likely TB. He was treated with IV Unasyn for total of 7 days based on ID recommendations who recommended to continue to extra weeks of oral Augmentin and to follow-up as outpatient with pulmonology. Blood cultures remain negative during the hospital stay. Bronchoscopy biopsy result and culture still pending. He was also noted to have Acute kidney injury at time of presentation requiring holding blood pressure medication, IV fluids with good response over the course of hospital stay as kidney function improved back to normal. He received supplement for potassium and magnesium which were low on multiple occasions. He was kept on magnesium supplement orally. Noted to have anemia which seems to be stable and chronic. To be followed and evaluated as outpatient with PCP. Continue Augmentin for 2 more weeks. To follow-up with Dr. Mcnally in pulmonology office for further evaluation and treatment plan Start omeprazole for reflux symptoms Take magnesium supplement Time Spent with Patient Time attestation: Total time spent providing and/or coordinating discharge services: Discharge coordination time: Greater than 30 minutes Quality: Stroke Does the patient have a stroke diagnosis?: No Physical Exam Vital Signs: Vital Signs: Last Vital Signs Temp 97.2 F 04/06/21 07:52 Pulse 74 04/06/21 07:52 Resp 18 04/06/21 07:52 BP 157/60 H 04/06/21 07:52 Pulse Ox 92 04/06/21 07:52 BMI result Body Mass Index 27.3 Const: Other: Constitutional : Alert, oriented, not in distress Neck : Normal inspection, Supple Cardiovascular : RRR, S1 S2, no lower extremity edema Respiratory : For bilateral air entry, right-sided decreased air entry mainly in the upper area, basal fine crackles on the right, wheezes or rhonchi Gastrointestinal: soft, lax, Normal bowel sounds, Non tender Skin : Warm, Dry Neurological : Alert & oriented x3, No focal deficit DS: Data Data Completed and Pending Completed studies during hospitalization [Text1]: Pending at discharge 04/02/21 11:55 Surgical [PTH] Routine 04/02/21 12:07 Cytology [PTH] Routine Cytology [PTH] Stat Labs on day of discharge: Laboratory Results - last 24 hr 04/05/21 04/05/21 04/05/21 10:53 15:29 19:12 POC Glucose 223 H 168 H 81 04/05/21 04/06/21 23: 07:25 POC Glucose 117 H 365 H* Preliminary micro results at discharge 04/02/21 Unknown Nocardia Culture - Preliminary Bronchial Washings 04/02/21 Unknown Nocardia Culture - Preliminary Bronchial Brushings Discharge Plan Discharge Patient Disposition: Home, Self-Care Discharge Diagnosis: Lung abscess Acute kidney injury Electrolyte imbalance Referrals: Physician,Unknown J [Primary Care Provider] - 1 Week Discharge Medications: New amoxicillin-pot clavulanate 875-125 mg tablet 1 tab PO BID 14 Days Qty: 28 0RF omeprazole 20 mg capsule,delayed release(DR/EC) 20 mg PO DAILY Qty: 30 0RF magnesium oxide 400 mg (241.3 mg magnesium) Tablet 400 mg PO BIDPC 30 Days Qty: 60 0RF Continued gabapentin 600 mg tablet 1 tab PO BID 0RF amlodipine 5 mg tablet 1 tab PO DAILY 0RF aspirin 81 mg tablet,delayed release (DR/EC) 1 tab PO DAILY 0RF gabapentin 300 mg capsule 1 cap PO DAILY@1200 0RF omeprazole 20 mg capsule,delayed release(DR/EC) 1 cap PO QAM 0RF lisinopril-hydrochlorothiazide 20-25 mg tablet 1 tab PO DAILY 0RF insulin aspart U-100 [Novolog Flexpen U-100 Insulin] 100 unit/mL (3 mL) insulin pen See Rx Instructions .ROUTE .COMPLEX 0RF Rx Instructions: sliding scale Lantus Solostar U-100 Insulin 100 unit/mL (3 mL) insulin pen 30 unit subcut BEDTIME 0RF Restasis 0.05 % dropperette 1 drp ophthalmic (eye) BID 0RF multivitamin Tablet 1 tab PO DAILY 0RF Discharge Orders: Discharge Order (Routine); Ordered 04/06/21 Ordered By: Valeria Reddy Diet: advance to usual diet Activity on Discharge: As tolerated Stand Alone Forms: Patient Portal Discharge page Care Plan Goals: Read below Health Concerns: Read below Plan of Treatment: Read below Assessment: You were admitted to the hospital for evidence of lung abscess and acute kidney injury with electrolyte imbalance. Your treated with IV antibiotics with good response as you were evaluated by Infectious Disease and Pulmonary teams. Bronchoscopy was done and biopsies were sent and some of them are still pending. Continue Augmentin for 2 more weeks. To follow-up with Dr. Mcnally in pulmonology office for further evaluation and treatment plan Start omeprazole for reflux symptoms Take magnesium supplement
--- NOTE | 2021-04-06 11:16 | MHC.CM.PN ---
PT TO DC HOME TODAY WITH NO SERVICES [facility] NURSE WILL CHECK IN ON PT 48 HOURS POST DC
[2021-04-06 11:32] LABS: Glucose, Whole Blood 131 mg/dL (60-115)
[2021-04-06 11:34] VITALS: BP 148/60; PULSE 55; RESP 20; TEMP 36.3; O2SAT 97
== END 2021-04-06 11:55 | disposition home or self-care (01) | DRG 167 ==
LOC: HO.ED 05:06 → HO.EDOVER 06:50 → HO.S3 04-02 07:05
PROVIDERS: Hospitalist; Internal Medicine; Admitting Provider Internal Medicine; Emergency Provider Student in an Organized Health Care Education/Training Program; Visit Provider Student in an Organized Health Care Education/Training Program
PROC: 0BJ08ZZ Inspection of Tracheobronchial Tree, Via Natural or Artificial Opening Endoscopic (ICD-10-PCS; CPT 31622; principal; 2021-04-02 10:40)
DX: J85.1 Abscess of lung with pneumonia (principal); N17.9 Acute kidney failure, unspecified; E11.65 Type 2 diabetes mellitus with hyperglycemia; D64.89 Other specified anemias; E87.6 Hypokalemia; E83.42 Hypomagnesemia; Z20.822 Contact with and (suspected) exposure to COVID-19; Z79.4 Long term (current) use of insulin; Z79.899 Other long term (current) drug therapy
CPT/HCPCS: 36415; 71045; 71250; 74176; 80048; 80053; 82009; 82803; 82947; 83605; 83690; 83735; 83880; 84443; 84484; 85025; 85027; 85379; 86481; 87040; 87071; 87102; 87116; 87205; 87389; 87635; 87640; 87641; 88112; 88305; 88312; 93005; 94640; 99285; J0171; J0295; J1100; J1650; J1885; J2250; J2270; J2370; J2405; J2543; J3010; J3370; J3475

== ENCOUNTER 2021-12-23 11:58 | Emergency (ER) | payer OTHER, SELFPAY ==
--- OUTSIDE RECORDS SUMMARY | 2021-12-23 13:46 | XMS_ITS | Continuity of Care Document ---
:1975 Author Organization [address], [address] [place] [address]- Care Team Providers Name Role Phone Yosef FRANKLIN, Bibiana Delaney Primary Care Physician Encounter [facility] Date(s): 06/26/19 - 07/26/[address], [address] [place] [address]- [facility] Attending Physician: Katt Mendoza Admitting Physician: AdmKatt dubon Referring Physician: AdmtrKatt Allergies, Adverse Reactions, Alerts Substance Reaction Severity Status NKA Active Immunizations Given and Recorded Vaccine Date Status Refusal Reason tetanus/diphtheria/pertussis, acel(Tdap) 09/30/13 Given pneumococcal 23-valent vaccine 12/11/09 Given influenza virus vaccine, inactivated1 05/02/09 Given influ virus vac, H1N1, inactive(oldterm)2 05/02/09 Given 1Result Comment: lot [id number] Comment: lot [id number] Medications Ambien 10 mg oral tablet 1 tablet, By Mouth, Daily at bedtime, PRN for sleep, 0 Refills, Maintenance, Tablet Start Date: 12/10/09 Status: Orderedaspirin 81 mg oral tablet 1 tablet = 81 mg, By Mouth, Daily, 0 Refills, Maintenance, 12/28/18 8:48:46 EST Start Date: 12/28/18 Status: Orderedcholecalciferol 1000 intl units oral tablet, chewable 1 tablet = 1,000 International_Units, Chew, Daily, # 50 tablet, 0 Refills, Maintenance, 03/06/19 13:05:00 EST, Chew Tablet Start Date: 03/06/19 Status: OrderedClonazepam = 2 mg, By Mouth, 4 times a day, 0 Refills, Maintenance Start Date: 04/30/09 Status: Orderedfenofibrate 160 mg oral tablet 1 tablet = 160 mg, By Mouth, Daily, # 30 tablet, 0 Refills, Maintenance, Tablet Start Date: 12/14/09 Status: Orderedgabapentin 600 mg oral tablet 0 Refills, Maintenance, 12/28/18 8:49:57 EST Start Date: 12/28/18 Status: OrderedHumalog Inj sliding scale, Subcutaneous Infusion, 3 times a day before meals, 0 Refills, Maintenance Start Date: 04/30/09 Status: Orderedibuprofen 600 mg oral tablet 1 tablet = 600 mg, By Mouth, 4 times a day, PRN Pain, # 28 tablet, 0 Refills, Maintenance Start Date: 04/13/10 Stop Date: 04/20/10 Status: OrderedInsulin Glargine Inj = 25 units, Subcutaneous Injection, Daily at bedtime, 0 Refills, Maintenance, Injection Start Date: 04/30/09 Status: Orderedlevofloxacin 500 mg oral tablet 1 tablet = 500 mg, By Mouth, Every 24 hours, # 3 tablet, 0 Refills, Maintenance, Tablet Start Date: 12/14/09 Stop Date: 12/17/09 Status: Orderedlisinopril 20 mg oral tablet 1 tablet = 20 mg, By Mouth, Daily, # 30 tablet, 0 Refills, Maintenance, Tablet Start Date: 12/14/09 Status: Orderedloratadine 10 mg oral tablet Refills 0, Maintenance, 12/28/18 8:50:04 EST Start Date: 12/28/18 Status: OrderedNovoLOG 100 units/mL subcutaneous solution = 10 units, Subcutaneous Injection, 2 times a day, # 10 mL, 0 Refills, Maintenance, 03/06/19 13:04:00 EST, Solution Start Date: 03/06/19 Status: Orderedorphenadrine 100 mg oral tablet, extended release Refills 0, Maintenance, 12/28/18 8:49:49 EST Start Date: 12/28/18 Status: Orderedsimvastatin 40 mg oral tablet 1 tablet, By Mouth, Daily at bedtime, # 30 tablet, 0 Refills, Maintenance, Tablet Start Date: 04/30/09 Status: Ordered Problem List Condition Effective Dates Status Health Status Informant Lumbar radiculitis(Confirmed) Active Spondylolisthesis of lumbar Active region(Confirmed)
--- OUTSIDE RECORDS SUMMARY | 2021-12-23 13:46 | XMS_ITS | Continuity of Care Document ---
:1975 Author Organization [facility] Address [address] [place] [address]- Care Team Providers Name Role Phone Yosef FRANKLIN, Bibiana Delaney Primary Care Physician [place] [facility] [place]/20 [facility] [address] [place] [id number] Allergies, Adverse Reactions, Alerts Substance Reaction Severity Status NKA Active Immunizations Given and Recorded Vaccine Date Status Refusal Reason tetanus/diphtheria/pertussis, acel(Tdap) 09/30/13 Given pneumococcal 23-valent vaccine 12/11/09 Given influenza virus vaccine, inactivated1 05/02/09 Given influ virus vac, H1N1, inactive(oldterm)2 05/02/09 Given 1Result Comment: lot [id number] Comment: lot [id number] Medications Ambien 10 mg oral tablet 1 [...]
--- OUTSIDE RECORDS SUMMARY | 2021-12-23 13:46 | XMS_ITS | Continuity of Care Document ---
:1975 Author Organization [facility] Address [address] [place] [address]- Care Team Providers Name Role Phone Yosef FRANKLIN, Bibiana Delaney Primary Care Physician En[place] [facility] [place] Date(s): 08/07/19 - 09/06/19 [facility] [address] [place] [address]- [facility] Allergies, Adverse Reactions, Alerts Substance Reaction Severity Status NKA Active Immunizations Given and Recorded Vaccine Date Status Refusal Reason tetanus/diphtheria/pertussis, acel(Tdap) 09/30/13 Given pneumococcal 23-valent vaccine 12/11/09 Given influenza virus vaccine, inactivated1 05/02/09 Given influ virus vac, H1N1, inactive(oldterm)2 05/02/09 Given 1Result Comment: lot [id number] Comment: lot [id number] Medications Ambien 10 mg oral tablet 1 [...]
--- OUTSIDE RECORDS SUMMARY | 2021-12-23 13:46 | XMS_ITS | Continuity of Care Document ---
:1975 Author Organization [facility] Address [address] [place] [address]- Care Team Providers Name Role Phone Yosef FRANKLIN, Bibiana Delaney Primary Care Physician [place] [facility] [place] 05/23/19 - 06/02/19 [facility] [address] [place] [address]- [facility] Attending Physician: Katt Mendoza Admitting Physician: Admtr, Katt Referring Physician: Admtr, Ar8 Allergies, Adverse Reactions, Alerts Substance Reaction Severity Status NKA Active Immunizations Given and Recorded Vaccine Date Status Refusal Reason tetanus/diphtheria/pertussis, acel(Tdap) 09/30/13 Given pneumococcal 23-valent vaccine 12/11/09 Given influenza virus vaccine, inactivated1 05/02/09 Given influ virus vac, H1N1, inactive(oldterm)2 05/02/09 Given 1Result Comment: lot [id number] Comment: lot [id number] Medications Ambien 10 mg oral tablet 1 [...]
--- OUTSIDE RECORDS SUMMARY | 2021-12-23 13:46 | XMS_ITS | Continuity of Care Document ---
:1975 Author Organization [address], [address] [place] [address]- Care Team Providers Name Role Phone Yosef FRANKLIN, Bibiana Delaney Primary Care Physician Encounter [facility] Date(s): 03/10/19 - 06/02/[address], [address] [place] [address]- [facility] Attending Physician: Coleen Flores DO Allergies, Adverse Reactions, Alerts Substance Reaction Severity Status NKA Active Immunizations Given and Recorded Vaccine Date Status Refusal Reason tetanus/diphtheria/pertussis, acel(Tdap) 09/30/13 Given pneumococcal 23-valent vaccine 12/11/09 Given influenza virus vaccine, inactivated1 05/02/09 Given influ virus vac, H1N1, inactive(oldterm)2 05/02/09 Given 1Result Comment: lot [id number] Comment: lot [id number] Medications Ambien 10 mg oral tablet 1 [...]
--- OUTSIDE RECORDS SUMMARY | 2021-12-23 13:46 | XMS_ITS | Continuity of Care Document ---
:1975 Author Organization [facility] Address [address] [place] [address]- Care Team Providers Name Role Phone Yosef FRANKLIN, Bibiana Delaney Primary Care Physician [place] [facility] [place] 02/01/20 - 03/02/20 [facility] [address] [place] [address] Attending Physician: Katt Mendoza Admitting Physician: Admtr, [id number] Referring Physician: Admtr, Ar8 Allergies, Adverse Reactions, Alerts Substance Reaction Severity Status NKA Active Immunizations Given and Recorded Vaccine Date Status Refusal Reason tetanus/diphtheria/pertussis, acel(Tdap) 09/30/13 Given pneumococcal 23-valent vaccine 12/11/09 Given influenza virus vaccine, inactivated1 05/02/09 Given influ virus vac, H1N1, inactive(oldterm)2 05/02/09 Given 1Result Comment: lot [id number] Comment: lot [id number] Medications Ambien 10 mg oral tablet 1 [...]
--- OUTSIDE RECORDS SUMMARY | 2021-12-23 13:46 | XMS_ITS | Continuity of Care Document ---
:1975 Author Organization [address], [address] [place] [address]- Care Team Providers Name Role Phone Yosef FRANKLIN, Bibiana Delaney Primary Care Physician Encounter [facility] [place] Date(s): 07/27/19 - 08/30/[address], [address] [place] [address]- [facility] Attending Physician: Coleen Flores DO Allergies, Adverse Reactions, Alerts Substance Reaction Severity Status NKA Active Immunizations Given and Recorded Vaccine Date Status Refusal Reason tetanus/diphtheria/pertussis, acel(Tdap) 09/30/13 Given pneumococcal 23-valent vaccine 12/11/09 Given influenza virus vaccine, inactivated1 05/02/09 Given influ virus vac, H1N1, inactive(oldterm)2 05/02/09 Given 1Result Comment: lot [id number] Comment: lot [id number] Medications Ambien 10 mg oral tablet 1 [...] radiculitis(Confirmed) Active Spondylolisthesis of lumbar Active region(Confirmed) Vital Signs Most recent to oldest [Reference Range]: 1 Height 172.00 cm (6/19/20 12:39 PM) Weight 84.08 kg (07/28/19 12:39 PM) Body Mass Index [18.5-24.99] 28.42 *H* (07/28/19 12:39 PM)
--- OUTSIDE RECORDS SUMMARY | 2021-12-23 13:46 | XMS_ITS | Continuity of Care Document ---
:1975 Author Organization [address], [address] [place] [address]- Care Team Providers Name Role Phone Yosef FRANKLIN, Bibiana Delaney Primary Care Physician Encounter [facility] [place] Date(s): 08/22/19 - 10/20/[address], [address] [place] [address]- [facility] Attending Physician: Coleen Flores DO Allergies, Adverse Reactions, Alerts Substance Reaction Severity Status NKA Active Immunizations Given and Recorded Vaccine Date Status Refusal Reason tetanus/diphtheria/pertussis, acel(Tdap) 09/30/13 Given pneumococcal 23-valent vaccine 12/11/09 Given influenza virus vaccine, inactivated1 05/02/09 Given influ virus vac, H1N1, inactive(oldterm)2 05/02/09 Given 1Result Comment: lot [id number] Comment: lot [id number] Medications Ambien 10 mg oral tablet 1 [...] Most recent to oldest [Reference Range]: 1 2 Height 172.00 cm 172.00 cm (09/19/19 3:57 PM) (09/04/19 11:37 AM) Weight 84.08 kg 84.08 kg (09/19/19 3:57 PM) (09/04/19 11:37 AM) Body Mass Index [18.5-24.99] 28.42 28.42 *H* *H* (09/19/19 3:57 PM) (09/04/19 11:37 AM)
--- OUTSIDE RECORDS SUMMARY | 2021-12-23 13:46 | XMS_ITS | Continuity of Care Document ---
:1975 Author Organization [facility] Address [address] [place] [address], [address] [place] [address]- Care Team Providers Name Role Phone Yosef FRANKLIN, Bibiana Delaney Primary Care Physician [place] [facility] [place] 08/22/19 - 09/21/[address], [address] [place] [address]- [facility] Allergies, Adverse Reactions, Alerts Substance Reaction Severity Status NKA Active Immunizations Given and Recorded Vaccine Date Status Refusal Reason tetanus/diphtheria/pertussis, acel(Tdap) 09/30/13 Given pneumococcal 23-valent vaccine 12/11/09 Given influenza virus vaccine, inactivated1 05/02/09 Given influ virus vac, H1N1, inactive(oldterm)2 05/02/09 Given 1Result Comment: lot [id number] Comment: lot [id number] Medications Ambien 10 mg oral tablet 1 [...]
--- OUTSIDE RECORDS SUMMARY | 2021-12-23 13:46 | XMS_ITS | Continuity of Care Document ---
:1975 Author Organization [address], [address] [place] [address]- Care Team Providers Name Role Phone Yosef FRANKLIN, Bibiana Delaney Primary Care Physician [place] [facility] [place] - 07/26/[address], [address] [place] [address]- [facility] Attending Physician: Coleen Flores DO Allergies, Adverse Reactions, Alerts Substance Reaction Severity Status NKA Active Immunizations Given and Recorded Vaccine Date Status Refusal Reason tetanus/diphtheria/pertussis, acel(Tdap) 09/30/13 Given pneumococcal 23-valent vaccine 12/11/09 Given influenza virus vaccine, inactivated1 05/02/09 Given influ virus vac, H1N1, inactive(oldterm)2 05/02/09 Given 1Result Comment: lot [id number] Comment: lot [id number] Medications Ambien 10 mg oral tablet 1 [...]
--- OUTSIDE RECORDS SUMMARY | 2021-12-23 13:46 | XMS_ITS | Continuity of Care Document ---
:1975 Author Organization [facility] Address [address] [place] [address]- Care Team Providers Name Role Phone Yosef FRANKLIN, Bibiana Delaney Primary Care Physician Encounter [facility] [place] Date(s): 05/22/21 - 06/21/[address] [address]- Attending Physician: Katt Mendoza Admitting Physician: AdmtrKatt Referring Physician: Admtr ArDaria Allergies, Adverse Reactions, Alerts No Known Allergies Immunizations Given and Recorded Vaccine Date Status Refusal Reason tetanus/diphtheria/pertussis, acel(Tdap) 09/30/13 Given pneumococcal 23-valent vaccine 12/11/09 Given influenza virus vaccine, inactivated1 05/02/09 Given influ virus vac, H1N1, inactive(oldterm)2 05/02/09 Given 1Result Comment: lot [id number] Comment: lot [id number] Medications Ambien 10 mg oral tablet 1 [...]
--- OUTSIDE RECORDS SUMMARY | 2021-12-23 13:46 | XMS_ITS | Continuity of Care Document ---
:1975 Author Organization [address], [address] [place] [address]- Care Team Providers Name Role Phone Yosef FRANKLIN, Bibiana Delaney Primary Care Physician Encounter [facility] Date(s): 09/20/19 - 10/20/[address], [address] [place] [address]- [facility] Attending Physician: Katt Mendoza Admitting Physician: AdmtrKatt Referring Physician: Admtr Ar8 Allergies, Adverse Reactions, Alerts Substance Reaction Severity Status NKA Active Immunizations Given and Recorded Vaccine Date Status Refusal Reason tetanus/diphtheria/pertussis, acel(Tdap) 09/30/13 Given pneumococcal 23-valent vaccine 12/11/09 Given influenza virus vaccine, inactivated1 05/02/09 Given influ virus vac, H1N1, inactive(oldterm)2 05/02/09 Given 1Result Comment: lot [id number] Comment: lot [id number] Medications Ambien 10 mg oral tablet 1 [...]
--- OUTSIDE RECORDS SUMMARY | 2021-12-23 13:46 | XMS_ITS | Continuity of Care Document ---
:1975 Author Organization [facility] Address [address] [place] [address]- Care Team Providers Name Role Phone Yosef FRANKLIN, Bibiana Delaney Primary Care Physician [place] [facility] [place](s): 04/15/21 - 06/21/[address] [address] Attending Physician: Not on Staff, Attending MD Allergies, Adverse Reactions, Alerts No Known Allergies Immunizations Given and Recorded Vaccine Date Status Refusal Reason tetanus/diphtheria/pertussis, acel(Tdap) 09/30/13 Given pneumococcal 23-valent vaccine 12/11/09 Given influenza virus vaccine, inactivated1 05/02/09 Given influ virus vac, H1N1, inactive(oldterm)2 05/02/09 Given 1Result Comment: lot [id number] Comment: lot [id number] Medications Ambien 10 mg oral tablet 1 [...]
--- OUTSIDE RECORDS SUMMARY | 2021-12-23 13:46 | XMS_ITS | Continuity of Care Document ---
:1975 Author Organization [address], [address] [place] [address]- Care Team Providers Name Role Phone Yosef FRANKLIN, Bibiana Delaney Primary Care Physician [place] [facility] [place] - 03/13/[address], [address] [place] [address]- [facility] Attending Physician: Coleen Flores DO Allergies, Adverse Reactions, Alerts Substance Reaction Severity Status NKA Active Immunizations Given and Recorded Vaccine Date Status Refusal Reason tetanus/diphtheria/pertussis, acel(Tdap) 09/30/13 Given pneumococcal 23-valent vaccine 12/11/09 Given influenza virus vaccine, inactivated1 05/02/09 Given influ virus vac, H1N1, inactive(oldterm)2 05/02/09 Given 1Result Comment: lot [id number] Comment: lot [id number] Medications Ambien 10 mg oral tablet 1 [...] oldest [Reference Range]: 1 Height 172.00 cm (1/27/20 12:59 PM) Weight 84.08 kg (03/06/19 12:59 PM) Body Mass Index [18.5-24.99] 28.42 *H* (03/06/19 12:59 PM)
--- OUTSIDE RECORDS SUMMARY | 2021-12-23 13:46 | XMS_ITS | Continuity of Care Document ---
:1975 Author Organization [facility] Address [address] [place] [address]- Care Team Providers Name Role Phone Yosef FRANKLIN, Bibiana Delaney Primary Care Physician [place] [facility] [place] 01/09/19 - 03/02/19 [facility] [address] [place] [id number]- [facility] Attending Physician: Iwona Shah DO Admitting Physician: Iwona Shah DO Referring Physician: Bibiana Navas NP Allergies, Adverse Reactions, Alerts Substance Reaction Severity Status NKA Active Immunizations Given and Recorded Vaccine Date Status Refusal Reason tetanus/diphtheria/pertussis, acel(Tdap) 09/30/13 Given pneumococcal 23-valent vaccine 12/11/09 Given influenza virus vaccine, inactivated1 05/02/09 Given influ virus vac, H1N1, inactive(oldterm)2 05/02/09 Given 1Result Comment: lot [id number] Comment: lot [id number] Medications Ambien 10 mg oral tablet 1 tablet, By Mouth, Daily at bedtime, PRN for sleep, 0 Refills, Maintenance, Tablet Start Date: 12/10/09 Status: Orderedaspirin 81 mg oral tablet 1 tablet = 81 mg, By Mouth, Daily, 0 Refills, Maintenance, 12/28/18 8:48:46 EST Start Date: 12/28/18 Status: OrderedClonazepam = 2 mg, By Mouth, [...] 12/28/18 8:50:04 EST Start Date: 12/28/18 Status: Orderedorphenadrine 100 mg oral tablet, extended [...]
--- OUTSIDE RECORDS SUMMARY | 2021-12-23 13:46 | XMS_ITS | Continuity of Care Document ---
:1975 Author Organization [facility] Address [address] [place] [phone]- Care Team Providers Name Role Phone Yosef FRANKLIN, Bibiana Delaney Primary Care Physician [id number] Date[facility]s): 05/16/[facility] - 06/22/19 [facility] [address] [place] [address]- [facility] Attending Physician: Vannesa Garay MD Admitting Physician: Vannesa Garay MD Referring Physician: Bibiana Navas NP Allergies, Adverse Reactions, Alerts Substance Reaction Severity Status NKA Active Immunizations Given and Recorded Vaccine Date Status Refusal Reason tetanus/diphtheria/pertussis, acel(Tdap) 09/30/13 Given pneumococcal 23-valent vaccine 12/11/09 Given influenza virus vaccine, inactivated1 05/02/09 Given influ virus vac, H1N1, inactive(oldterm)2 05/02/09 Given 1Result Comment: lot [id number] Comment: lot [id number] Medications Ambien 10 mg oral tablet 1 [...]
--- OUTSIDE RECORDS SUMMARY | 2021-12-23 13:46 | XMS_ITS | Continuity of Care Document ---
:1975 Author Organization [facility] Address [address] [place] [phone]- Care Team Providers Name Role Phone Yosef FRANKLIN, Bibiana Delaney Primary Care Physician Encounter [facility] [place](s): 01/22/20 - 03/02/20 [facility] [address] [place] [id number] Attending Physician: Vannesa Garay MD Admitting Physician: Vannesa Garay MD Referring Physician: Bibiana Navas NP Allergies, Adverse Reactions, Alerts Substance Reaction Severity Status NKA Active Immunizations Given and Recorded Vaccine Date Status Refusal Reason tetanus/diphtheria/pertussis, acel(Tdap) 09/30/13 Given pneumococcal 23-valent vaccine 12/11/09 Given influenza virus vaccine, inactivated1 05/02/09 Given influ virus vac, H1N1, inactive(oldterm)2 05/02/09 Given 1Result Comment: lot [id number] Comment: lot [id number] Medications Ambien 10 mg oral tablet 1 [...]
--- OUTSIDE RECORDS SUMMARY | 2021-12-23 13:46 | XMS_ITS | Continuity of Care Document ---
:1975 Author Organization [facility] Address [address] [place] [address]- Care Team Providers Name Role Phone Yosef FRANKLIN, Bibiana Delaney Primary Care Physician Encounter [facility] [place] Date(s): 07/27/19 - 09/13/19 [facility] [address] [place] [address]- [facility] Attending Physician: Not on Staff, Attending MD Allergies, Adverse Reactions, Alerts Substance Reaction Severity Status NKA Active Immunizations Given and Recorded Vaccine Date Status Refusal Reason tetanus/diphtheria/pertussis, acel(Tdap) 09/30/13 Given pneumococcal 23-valent vaccine 12/11/09 Given influenza virus vaccine, inactivated1 05/02/09 Given influ virus vac, H1N1, inactive(oldterm)2 05/02/09 Given 1Result Comment: lot [id number] Comment: lot [id number] Medications Ambien 10 mg oral tablet 1 [...]
--- OUTSIDE RECORDS SUMMARY | 2021-12-23 13:46 | XMS_ITS | Continuity of Care Document ---
:1975 Author Organization [facility] Address [address] [place] [phone]- Care Team Providers Name Role Phone Yosef FRANKLIN, Bibiana Delaney Primary Care Physician [place] [facility] [place] 04/20/19 - 04/30/19 [facility] [address] [place] [address]- [facility] Attending Physician: Katt Mendoza Admitting Physician: Admtr, Ar8 Referring Physician: Admtr, Ar8 Allergies, Adverse Reactions, Alerts Substance Reaction Severity Status NKA Active Immunizations Given and Recorded Vaccine Date Status Refusal Reason tetanus/diphtheria/pertussis, acel(Tdap) 09/30/13 Given pneumococcal 23-valent vaccine 12/11/09 Given influenza virus vaccine, inactivated1 05/02/09 Given influ virus vac, H1N1, inactive(oldterm)2 05/02/09 Given 1Result Comment: lot [id number] Comment: lot [id number] Medications Ambien 10 mg oral tablet 1 [...]
--- OUTSIDE RECORDS SUMMARY | 2021-12-23 13:46 | XMS_ITS | Continuity of Care Document ---
:1975 Author Organization [facility] Address [address] [place] [address]- Care Team Providers Name Role Phone Yosef FRANKLIN, Bibiana Delaney Primary Care Physician [place] [facility] [place] 09/[place]/19 - 10/26/19 [facility] [address] [place] [phone]- [facility] Attending Physician: AdmKatt dubon Admitting Physician: Admtr, [id number] Referring Physician: Admtr, Ar8 Allergies, Adverse Reactions, Alerts Substance Reaction Severity Status NKA Active Immunizations Given and Recorded Vaccine Date Status Refusal Reason tetanus/diphtheria/pertussis, acel(Tdap) 09/30/13 Given pneumococcal 23-valent vaccine 12/11/09 Given influenza virus vaccine, inactivated1 05/02/09 Given influ virus vac, H1N1, inactive(oldterm)2 05/02/09 Given 1Result Comment: lot [id number] Comment: lot [id number] Medications Ambien 10 mg oral tablet 1 [...]
== END 2021-12-23 14:54 | disposition left against medical advice (07) ==
PROVIDERS: Emergency Provider Emergency Medicine; PCP Internal Medicine
DX: R21 Rash and other nonspecific skin eruption (principal)

== ENCOUNTER 2022-01-22 02:03 | Inpatient (IN) | payer OTHER, SELFPAY ==
[2022-01-22] VITALS (14 sets, daily range): BP systolic 146–230; BP diastolic 81–115; PULSE 85–120; RESP 14–22; TEMP 36.5–37.3; O2SAT 93–100; BMI 27.1; BMI 28.2
--- NOTE | ~2022-01-22 | XR_ITS ---
EXAMINATION: XR CHEST CLINICAL INFORMATION: Chest tightness. COMPARISON: January 22, 2022. TECHNIQUE: Portable AP view of the chest was obtained. XR/XR chest 1V FINDINGS/IMPRESSION: The study is limited by portable technique and low lung volumes. Right mid lung scarring appears similar compared with one day prior. Patchy bilateral linear densities, left greater than right, appear worse compared with one day prior, suggesting atelectasis, infiltrates, and/or fibrotic changes. The left costophrenic angle is poorly defined, raising suspicion for effusion. No effusion is seen on the right. No pneumothorax is identified. The cardiac silhouette is suboptimally evaluated. The bones and soft tissues appear unremarkable.
--- NOTE | ~2022-01-22 | CT_ITS ---
EXAMINATION: CT head/brain wo IV con CLINICAL INFORMATION: Reason for Exam New onset seizure, rule out stroke, bleed, mass ef COMPARISON: None. TECHNIQUE: Contiguous axial imaging was performed from the skull base to vertex without intravenous contrast. Sagittal and coronal reformatted images were obtained. This CT examination was performed using dose optimization techniques as appropriate, variously including the following: * Automated exposure control * Adjustment of mA and/or kV according to patient size (this includes techniques or standardized protocols for targeted exams where dose is matched to indication/reason for exam; i.e. extremities or head) Use of iterative reconstruction technique DLP: 831 mGy-cm FINDINGS: No acute osseous or soft tissue abnormality. The mastoids are clear. Mild right greater than left maxillary sinus mucosal thickening. There is no evidence of acute intracranial hemorrhage or territorial infarction. No abnormal mass effect or midline shift is seen. [place] to white matter differentiation is well preserved. No extra-axial fluid collections are identified. No hydrocephalus. Proportional prominence of the ventricles and sulcal spaces is consistent with mild volume loss. There is no abnormal attenuation within the brain parenchyma. CT/CT head/brain wo IV con IMPRESSION: No acute intracranial abnormality including hemorrhage, mass effect, hydrocephalus, or acute territorial edematous infarction.
--- NOTE | ~2022-01-22 | XR_ITS ---
EXAMINATION: XR CHEST CLINICAL INFORMATION: Seizure. Evaluate for aspiration pneumonia. COMPARISON: Chest radiograph 04/02/2021. TECHNIQUE: Frontal view of the chest was obtained. FINDINGS: Normal appearance of the cardiomediastinal silhouette. Residual architectural distortion and subpleural thickening in the area of a previously visualized consolidation in the right middle lobe on radiograph from 04/02/2021, favoring to represent parenchymal scarring. No new focal airspace opacity. No pleural effusion or pneumothorax. No acute osseous abnormalities. EKG wires overlie the chest. XR/XR chest 1V IMPRESSION: Residual architectural distortion and subpleural thickening in the area of a previously visualized consolidation in the right middle lobe. No new focal airspace opacity.
--- NOTE | 2022-01-22 02:12 | ECG_ITS ---
Test Reason : SEIZURE Blood Pressure : / mmHG Vent. Rate : 090 BPM Atrial Rate : 090 BPM P-R Int : 180 ms QRS Dur : 098 ms QT Int : 402 ms P-R-T Axes : 032 -14 112 degrees QTc Int : 491 ms Normal sinus rhythm T wave abnormality, consider lateral ischemia Prolonged QT Abnormal ECG When compared with ECG of 31-MAR-2021 04:32, Nonspecific T wave abnormality no longer evident in Inferior leads Referred By: Carlos Marx Electronically Signed By:EFRAIN WOODWARD
[2022-01-22] MEDS: Midazolam HCl/PF 2 MG/2 ML VIAL IVPUSH (02:15)
--- NOTE | 2022-01-22 02:15 | ED_ITS ---
HPI - Seizure General Chief Complaint: Seizure Stated Complaint: seizure Time Seen by Provider: 01/22/22 02:11 Source: EMS Mode of arrival: EMS Limitations: other (Postictal) History of Present Illness HPI Narrative: 46-year-old male who is brought to the emergency department by ambulance for evaluation of seizure. According to the paramedics, the patient's roommate heard a crash in the patient's room. The patient apparently was having a tonic- clonic seizure with a roommate went in the room. Paramedics states patient was initially postictal and when they were moving the patient he had a 2nd tonic- clonic seizure. He was given Versed intranasally. Paramedics at a point of care glucose of 564. Patient does have a history of diabetes. No other information on the patient's presentation was available Review of the patient's hospital records reveal that the patient was admitted from 03/31/2021 until 04/06/2021 for a cavitary pneumonia/lung abscess, sepsis, hypokalemia and hypomagnesemia. Related Data Home Medications Medication Instructions Recorded Confirmed amlodipine 5 mg tablet 1 tab PO DAILY 03/31/21 03/31/21 aspirin 81 mg tablet,delayed 1 tab PO DAILY 03/31/21 03/31/21 release cyclosporine 0.05 % eye drops in a 1 drp ophthalmic (eye) BID 03/31/21 03/31/21 dropperette (Restasis) gabapentin 300 mg capsule 1 cap PO DAILY@1200 03/31/21 03/31/21 gabapentin 600 mg tablet 1 tab PO BID 03/31/21 03/31/21 insulin aspart U-100 100 unit/mL See Rx Instructions .Route .COMPLEX 03/31/21 03/31/21 (3 mL) subcutaneous pen (Novolog Flexpen U-100 Insulin aspart) insulin glargine 100 unit/mL (3 30 unit subcut BEDTIME 03/31/21 03/31/21 mL) subcutaneous pen (Lantus Solostar U-100 Insulin) lisinopril 20 1 tab PO DAILY 03/31/21 03/31/21 mg-hydrochlorothiazide 25 mg tablet multivitamin 1 tab PO DAILY 03/31/21 03/31/21 omeprazole 20 mg capsule,delayed 1 cap PO QAM 03/31/21 03/31/21 release Previous Rx's Medication Instructions Recorded amoxicillin 875 mg-potassium 1 tab PO BID 14 days #28 tabs 04/06/21 clavulanate 125 mg tablet magnesium oxide 400 mg (241.3 mg 400 mg PO BIDPC 30 days #60 tabs 04/06/21 magnesium) tablet omeprazole 20 mg capsule,delayed 20 mg PO DAILY #30 caps 04/06/21 release Allergies Allergy/AdvReac Type Severity Reaction Status Date / Time No Known Allergies Allergy Verified 03/31/21 04:00 Review of Systems Review of Systems: Yes Unobtainable due to mental status (Postictal) [facility] Past Medical History Medical History Cavitary lesion of lung Cavitary pneumonia Diabetes HTN (hypertension) Leukemia Lung abscess Family History Family History Father Diabetes mellitus Social History Social History Alcohol intake: current Patient Tobacco Use Status: Never used Tobacco Advance Directives: No Advance Directives Information Provided: No service: No Current occupational status: unemployed Physical Exam Vital Signs: Vital Signs: Last Vital Signs Temp 97.7 F 01/22/22 02:15 Pulse 93 01/22/22 04:57 Resp 20 01/22/22 04:57 BP 195/110 H 01/22/22 04:57 Pulse Ox 100 01/22/22 04:57 O2 Del Method 01/22/22 04:57 O2 Flow Rate 2 01/22/22 04:57 Oxygen Flow Rate 2 01/22/22 02:15 BMI result Body Mass Index 27.1 Const: Other: Patient is awake but appears to be postictal, he does not follow simple commands HEENT: Head: Yes normal to inspection, Yes normocephalic and Yes atraumatic Ears: external ears normal General nose exam: Normal external nose present Face and sinus: Yes normal facial exam Mouth: Normal oral and palatal mucosa present Throat: Yes posterior oropharynx normal Eyes: General: appearance normal, both eyes and all related structures Neck: Neck: Yes normal visual inspection, Yes no lymphadenopathy, Yes trachea midline and Yes supple Chest: Chest palpation & inspection: normal inspection of the chest and normal palpation of entire chest wall Resp: Effort & Inspection: normal respiratory effort and able to speak in complete sentences Auscultation: clear to auscultation bilaterally Cardio: Rate: regular rate Rhythm: regular rhythm Heart sounds: S1 normal heart sound present, S2 normal heart sound present and no murmurs GI: Inspection: Yes normal to inspection Palpation (GI): Soft to palpation, nontender and no guarding Auscultation: normal bowel sounds : General: Yes no CVA tenderness Back/Spine/Pelvis: Back: no CVA tenderness Skin: General skin exam: no rashes or lesions noted Neuro: Other: Patient's pupils are equal, round reactive light, patient is moving all his extremities, appears to be postictal Extrem: General: Yes normal to inspection Course Course Course Narrative: 46-year-old male who was brought to emergency department by ambulance for evaluation tonic clonic seizure x2 that occurred prior to arrival. On arrival patient does appear to be postictal. The paramedics obtained a point of care glucose of 564. Patient did receive Versed 2 mg intranasally and I ordered Versed 2 mg IV. I ordered a laboratory evaluation to CBC, CMP, CK, , lactic acid, lipase, magnesium, troponin, PT/INR, PTT, alcohol level, urine drug screen, COVID-19, influenza. Patient was ordered to get normal saline x1 L. 0334: Laboratory evaluation: Anemia with an H&H of 12.2 and 35.1. CO2 low 19, BUN and creatinine elevated 30 and 2.2 weight above the patient's baseline. Glucose elevated 731. Alk-phos elevated 225. Lactate elevated 5.6-most likely secondary to seizure. Magnesium low 1.4. High sensitivity troponin I detectable but not elevated at 30.2. COVID-19 and influenza negative. Radiology evaluation: CT scan of the head: No acute intracranial abnormalities. Chest x-ray: One-view no new focal airspace opacities EKG: Prolonged QTC 491 millisecond The patient had 2 seizures which may be secondary to metabolic abnormalities. Given his elevated glucose I did order normal saline IV x3 L and insulin 10 units IV. Patient's magnesium was low. I ordered magnesium 2 g IV. 0457: Laboratory evaluation: Patient's VBG revealed a pH of 7.21 and a pCO2 of 58. Acetone negative, urine ketones negative, repeat lactic acid 1.6. Repeat glucose after 3 L of normal saline and 10 units of regular insulin was 400. This time I do not think the patient has DKA or infectious process. Repeat point of care glucose was 403 therefore I ordered a 2nd dose of regular insulin 10 units IV. I did discuss the patient's presentation with the covering hospitalist the patient will be admitted for further management Medications Administered Discontinued Medications Generic Name Dose Route Start Last Admin Trade Name Tashia PRN Reason Stop Dose Admin Amlodipine Besylate 5 mg 01/22/22 03:45 01/22/22 03:52 Amlodipine Besylate 5 Mg Tablet PO 01/22/22 03:46 5 mg ONCE ONE Administration Protocol Sodium Chloride 1,000 mls @ 999 mls/hr 01/22/22 02:11 01/22/22 04:17 Ns IV 01/22/22 03:11 Infused .Q1H1M STA Infusion Sodium Chloride 1,000 mls @ 999 mls/hr 01/22/22 02:51 01/22/22 04:17 Ns IV 01/22/22 03:51 Infused .Q1H1M STA Infusion Sodium Chloride 1,000 mls @ 999 mls/hr 01/22/22 02:53 01/22/22 04:17 Ns IV 01/22/22 03:53 Infused .Q1H1M STA Infusion Magnesium Sulfate 2 gm in 50 mls @ 25 mls/hr 01/22/22 02:53 01/22/22 04:52 Magnesium Sulfate/H2o IV 01/22/22 04:52 Infused ONCE ONE Infusion Insulin Human Regular 10 unit 01/22/22 02:51 01/22/22 02:59 Insulin Regular, Human 100 Unit/Ml 3 Ml Vial IVPUSH 01/22/22 02:52 10 unit ONCE ONE Administration Lisinopril 20 mg 01/22/22 03:45 01/22/22 03:52 Lisinopril 20 Mg Tablet PO 01/22/22 03:46 20 mg ONCE ONE Administration Protocol Midazolam HCl 2 mg 01/22/22 02:14 01/22/22 02:15 Midazolam Hcl/Pf 2 Mg/2 Ml Vial IVPUSH 01/22/22 02:15 2 mg ONCE ONE Administration Medical Decision Making Lab Data MDM Lab Attestation statement: I reviewed the patient's lab results. Result Diagrams: 01/22/22 02:23 01/22/22 02:23 Labs: Lab Results 01/22/22 01/22/22 01/22/22 Range/Units 02:23 02:23 02:23 WBC 9.8 (4.8-10.8) X10*3/uL RBC 3.92 L (4.60-5.80) X10*6/uL Hgb 12.2 L D (14.0-18.0) g/dl Hct 35.1 L (42.0-52.0) % MCV 89.5 (80.0-98.0) fL MCH 31.1 (27.0-33.0) pg MCHC 34.8 (31.0-36.0) g/dl RDW 13.1 (11.0-16.0) % Plt Count 214 (160-400) X10*3/uL MPV 10.5 (9.4-12.4) fL Immature Gran % (Auto) 0.3 (0.0-0.4) % Neut % (Auto) 85.5 H (45-73) % Lymph % (Auto) 7.7 L (20-40) % [place] % (Auto) 3.9 (2-11) % Eos % (Auto) 2.1 (0-4) % Baso % (Auto) 0.5 (0-2) % Lymph # (Auto) 0.8 L (1.2-4.9) X10*3/uL [place] # (Auto) 0.4 (0.1-1.2) X10*3/uL Eos # (Auto) 0.2 (0.0-0.4) X10*3/uL Baso # (Auto) 0.1 (0.0-0.2) X10*3/uL Abs Immat Gran (auto) 0.03 (0.00-0.03) X10*3/uL Absolute Neuts (auto) 8.4 H (2.0-8.3) x10*3/uL Absolute Nucleated RBC 0.000 (0.0-0.012) X10*3/uL Nucleated RBC % (auto) 0.0 (0.0-0.2) /100WBC PT 10.0 (10.0-13.1) SEC INR 0.9 (0.9-1.1) APTT 27.4 (26.0-36.4) SEC VBG pH (7.32-7.43) VBG pCO2 mmHg VBG pO2 mmHg VBG HCO3 (22-26) mmol/L VBG O2 Saturation % VBG Base Excess mmol/L Sodium (135-145) mmol/L Potassium (3.3-5.1) mmol/L Chloride (96-108) mmol/L Carbon Dioxide (22-29) mmol/L Anion Gap (12-20) BUN (9-16) mg/dL Creatinine (0.5-1.4) mg/dL Estim Creat Clear Calc Estimated GFR POC Glucose (60-115) mg/dL Random Glucose (60-115) mg/dL Lactic Acid (0.5-2.0) mmol/L Calcium (8.4-10.2) mg/dL Magnesium (1.6-2.6) mg/dL Total Bilirubin (0.0-1.0) mg/dL AST (5-37) U/L ALT (0-40) U/L Alkaline Phosphatase (39-117) U/L Total Creatine Kinase (38-174) U/L Troponin I High Sens (<3.5-35.0) ng/L Total Protein (6.5-8.0) g/dL Albumin (3.5-5.0) g/dL Lipase (8-78) U/L Urine Color Urine Appearance Urine pH (5.0-9.0) Ur Specific [place] (1.005-1.025) Urine Protein (Neg-Trace) mg/dL Urine Glucose (UA) (Negative) mg/dL Urine Ketones (Negative) mg/dL Urine Blood (Negative) Urine Nitrite (Negative) Ur Leukocyte Esterase (Negative) Urine RBC (0-2) /HPF Urine WBC (0-5) /HPF Ur Squamous Epith Cells (0-2) /HPF Urine Bacteria (None Seen) Hyaline Casts (0-2) /LPF Urine Opiates Screen (Not Detect) Urine Fentanyl Screen (Not Detect) Ur Barbiturates Screen (Not Detect) Ur Phencyclidine Scrn (Not Detect) Ur Amphetamines Screen (Not Detect) U Benzodiazepines Scrn (Not Detect) Urine Cocaine Screen (Not Detect) U Marijuana (THC) Screen (Not Detect) Ethyl Alcohol mg/dL Acetone, Qual (Negative) COVID-19 (ANA M) Negative (Negative) COVID-19 Clin Com See Note Influenza Type A (NEGRO) (Negative) Influenza Type B (NEGRO) (Negative) Influenza A & B Note 01/22/22 01/22/22 01/22/22 Range/Units 02:23 02:23 02:23 WBC (4.8-10.8) X10*3/uL RBC (4.60-5.80) X10*6/uL Hgb (14.0-18.0) g/dl Hct (42.0-52.0) % MCV (80.0-98.0) fL MCH (27.0-33.0) pg MCHC (31.0-36.0) g/dl RDW (11.0-16.0) % Plt Count (160-400) X10*3/uL MPV (9.4-12.4) fL Immature Gran % (Auto) (0.0-0.4) % Neut % (Auto) (45-73) % Lymph % (Auto) (20-40) % [place] % (Auto) (2-11) % Eos % (Auto) (0-4) % Baso % (Auto) (0-2) % Lymph # (Auto) (1.2-4.9) X10*3/uL [place] # (Auto) (0.1-1.2) X10*3/uL Eos # (Auto) (0.0-0.4) X10*3/uL Baso # (Auto) (0.0-0.2) X10*3/uL Abs Immat Gran (auto) (0.00-0.03) X10*3/uL Absolute Neuts (auto) (2.0-8.3) x10*3/uL Absolute Nucleated RBC (0.0-0.012) X10*3/uL Nucleated RBC % (auto) (0.0-0.2) /100WBC PT (10.0-13.1) SEC INR (0.9-1.1) APTT (26.0-36.4) SEC VBG pH (7.32-7.43) VBG pCO2 mmHg VBG pO2 mmHg VBG HCO3 (22-26) mmol/L VBG O2 Saturation % VBG Base Excess mmol/L Sodium 136 (135-145) mmol/L Potassium 4.4 (3.3-5.1) mmol/L Chloride 102 (96-108) mmol/L Carbon Dioxide 19 L (22-29) mmol/L Anion Gap 19 (12-20) BUN 30 H (9-16) mg/dL Creatinine 2.28 H (0.5-1.4) mg/dL Estim Creat Clear Calc 38.7 Estimated GFR 31 POC Glucose (60-115) mg/dL Random Glucose 731 H* (60-115) mg/dL Lactic Acid (0.5-2.0) mmol/L Calcium 7.9 L (8.4-10.2) mg/dL Magnesium 1.4 L* (1.6-2.6) mg/dL Total Bilirubin 0.5 (0.0-1.0) mg/dL AST 22 (5-37) U/L ALT 14 (0-40) U/L Alkaline Phosphatase 255 H (39-117) U/L Total Creatine Kinase 130 (38-174) U/L Troponin I High Sens 30.2 (<3.5-35.0) ng/L Total Protein 5.5 L (6.5-8.0) g/dL Albumin 2.7 L (3.5-5.0) g/dL Lipase 20 (8-78) U/L Urine Color Urine Appearance Urine pH (5.0-9.0) Ur Specific [place] (1.005-1.025) Urine Protein (Neg-Trace) mg/dL Urine Glucose (UA) (Negative) mg/dL Urine Ketones (Negative) mg/dL Urine Blood (Negative) Urine Nitrite (Negative) Ur Leukocyte Esterase (Negative) Urine RBC (0-2) /HPF Urine WBC (0-5) /HPF Ur Squamous Epith Cells (0-2) /HPF Urine Bacteria (None Seen) Hyaline Casts (0-2) /LPF Urine Opiates Screen (Not Detect) Urine Fentanyl Screen (Not Detect) Ur Barbiturates Screen (Not Detect) Ur Phencyclidine Scrn (Not Detect) Ur Amphetamines Screen (Not Detect) U Benzodiazepines Scrn (Not Detect) Urine Cocaine Screen (Not Detect) U Marijuana (THC) Screen (Not Detect) Ethyl Alcohol < 10 mg/dL Acetone, Qual Negative (Negative) COVID-19 (ANA M) (Negative) COVID-19 Clin Com Influenza Type A (NEGRO) (Negative) Influenza Type B (NEGRO) (Negative) Influenza A & B Note 01/22/22 01/22/22 01/22/22 Range/Units 02:24 02:25 03:27 WBC (4.8-10.8) X10*3/uL RBC (4.60-5.80) X10*6/uL Hgb (14.0-18.0) g/dl Hct (42.0-52.0) % MCV (80.0-98.0) fL MCH (27.0-33.0) pg MCHC (31.0-36.0) g/dl RDW (11.0-16.0) % Plt Count (160-400) X10*3/uL MPV (9.4-12.4) fL Immature Gran % (Auto) (0.0-0.4) % Neut % (Auto) (45-73) % Lymph % (Auto) (20-40) % [place] % (Auto) (2-11) % Eos % (Auto) (0-4) % Baso % (Auto) (0-2) % Lymph # (Auto) (1.2-4.9) X10*3/uL [place] # (Auto) (0.1-1.2) X10*3/uL Eos # (Auto) (0.0-0.4) X10*3/uL Baso # (Auto) (0.0-0.2) X10*3/uL Abs Immat Gran (auto) (0.00-0.03) X10*3/uL Absolute Neuts (auto) (2.0-8.3) x10*3/uL Absolute Nucleated RBC (0.0-0.012) X10*3/uL Nucleated RBC % (auto) (0.0-0.2) /100WBC PT (10.0-13.1) SEC INR (0.9-1.1) APTT (26.0-36.4) SEC VBG pH (7.32-7.43) VBG pCO2 mmHg VBG pO2 mmHg VBG HCO3 (22-26) mmol/L VBG O2 Saturation % VBG Base Excess mmol/L Sodium (135-145) mmol/L Potassium (3.3-5.1) mmol/L Chloride (96-108) mmol/L Carbon Dioxide (22-29) mmol/L Anion Gap (12-20) BUN (9-16) mg/dL Creatinine (0.5-1.4) mg/dL Estim Creat Clear Calc Estimated GFR POC Glucose (60-115) mg/dL Random Glucose (60-115) mg/dL Lactic Acid 5.6 H* (0.5-2.0) mmol/L Calcium (8.4-10.2) mg/dL Magnesium (1.6-2.6) mg/dL Total Bilirubin (0.0-1.0) mg/dL AST (5-37) U/L ALT (0-40) U/L Alkaline Phosphatase (39-117) U/L Total Creatine Kinase (38-174) U/L Troponin I High Sens (<3.5-35.0) ng/L Total Protein (6.5-8.0) g/dL Albumin (3.5-5.0) g/dL Lipase (8-78) U/L Urine Color Yellow Urine Appearance Clear Urine pH 5.5 (5.0-9.0) Ur Specific [place] 1.025 (1.005-1.025) Urine Protein 300 (3+) H (Neg-Trace) mg/dL Urine Glucose (UA) >=1000 H (Negative) mg/dL Urine Ketones Negative (Negative) mg/dL Urine Blood Moderate (2+) H (Negative) Urine Nitrite Negative (Negative) Ur Leukocyte Esterase Negative (Negative) Urine RBC 11-20 H (0-2) /HPF Urine WBC 0-5 (0-5) /HPF Ur Squamous Epith Cells 0-2 (0-2) /HPF Urine Bacteria None Seen (None Seen) Hyaline Casts 0-2 (0-2) /LPF Urine Opiates Screen (Not Detect) Urine Fentanyl Screen (Not Detect) Ur Barbiturates Screen (Not Detect) Ur Phencyclidine Scrn (Not Detect) Ur Amphetamines Screen (Not Detect) U Benzodiazepines Scrn (Not Detect) Urine Cocaine Screen (Not Detect) U Marijuana (THC) Screen (Not Detect) Ethyl Alcohol mg/dL Acetone, Qual (Negative) COVID-19 (ANA M) (Negative) COVID-19 Clin Com Influenza Type A (NEGRO) Negative (Negative) Influenza Type B (NEGRO) Negative (Negative) Influenza A & B Note See Note 01/22/22 01/22/22 01/22/22 Range/Units 03:27 04:03 04:10 WBC (4.8-10.8) X10*3/uL RBC (4.60-5.80) X10*6/uL Hgb (14.0-18.0) g/dl Hct (42.0-52.0) % MCV (80.0-98.0) fL MCH (27.0-33.0) pg MCHC (31.0-36.0) g/dl RDW (11.0-16.0) % Plt Count (160-400) X10*3/uL MPV (9.4-12.4) fL Immature Gran % (Auto) (0.0-0.4) % Neut % (Auto) (45-73) % Lymph % (Auto) (20-40) % [place] % (Auto) (2-11) % Eos % (Auto) (0-4) % Baso % (Auto) (0-2) % Lymph # (Auto) (1.2-4.9) X10*3/uL [place] # (Auto) (0.1-1.2) X10*3/uL Eos # (Auto) (0.0-0.4) X10*3/uL Baso # (Auto) (0.0-0.2) X10*3/uL Abs Immat Gran (auto) (0.00-0.03) X10*3/uL Absolute Neuts (auto) (2.0-8.3) x10*3/uL Absolute Nucleated RBC (0.0-0.012) X10*3/uL Nucleated RBC % (auto) (0.0-0.2) /100WBC PT (10.0-13.1) SEC INR (0.9-1.1) APTT (26.0-36.4) SEC VBG pH (7.32-7.43) VBG pCO2 mmHg VBG pO2 mmHg VBG HCO3 (22-26) mmol/L VBG O2 Saturation % VBG Base Excess mmol/L Sodium (135-145) mmol/L Potassium (3.3-5.1) mmol/L Chloride (96-108) mmol/L Carbon Dioxide (22-29) mmol/L Anion Gap (12-20) BUN (9-16) mg/dL Creatinine (0.5-1.4) mg/dL Estim Creat Clear Calc Estimated GFR POC Glucose 402 H* (60-115) mg/dL Random Glucose (60-115) mg/dL Lactic Acid 1.6 (0.5-2.0) mmol/L Calcium (8.4-10.2) mg/dL Magnesium (1.6-2.6) mg/dL Total Bilirubin (0.0-1.0) mg/dL AST (5-37) U/L ALT (0-40) U/L Alkaline Phosphatase (39-117) U/L Total Creatine Kinase (38-174) U/L Troponin I High Sens (<3.5-35.0) ng/L Total Protein (6.5-8.0) g/dL Albumin (3.5-5.0) g/dL Lipase (8-78) U/L Urine Color Urine Appearance Urine pH (5.0-9.0) Ur Specific [place] (1.005-1.025) Urine Protein (Neg-Trace) mg/dL Urine Glucose (UA) (Negative) mg/dL Urine Ketones (Negative) mg/dL Urine Blood (Negative) Urine Nitrite (Negative) Ur Leukocyte Esterase (Negative) Urine RBC (0-2) /HPF Urine WBC (0-5) /HPF Ur Squamous Epith Cells (0-2) /HPF Urine Bacteria (None Seen) Hyaline Casts (0-2) /LPF Urine Opiates Screen Not Detected (Not Detect) Urine Fentanyl Screen Not Detected (Not Detect) Ur Barbiturates Screen Not Detected (Not Detect) Ur Phencyclidine Scrn Not Detected (Not Detect) Ur Amphetamines Screen Not Detected (Not Detect) U Benzodiazepines Scrn POSITIVE H (Not Detect) Urine Cocaine Screen POSITIVE H (Not Detect) U Marijuana (THC) Screen Not Detected (Not Detect) Ethyl Alcohol mg/dL Acetone, Qual (Negative) COVID-19 (ANA M) (Negative) COVID-19 Clin Com Influenza Type A (NEGRO) (Negative) Influenza Type B (NEGRO) (Negative) Influenza A & B Note 01/22/22 Range/Units 04:21 WBC (4.8-10.8) X10*3/uL RBC (4.60-5.80) X10*6/uL Hgb (14.0-18.0) g/dl Hct (42.0-52.0) % MCV (80.0-98.0) fL MCH (27.0-33.0) pg MCHC (31.0-36.0) g/dl RDW (11.0-16.0) % Plt Count (160-400) X10*3/uL MPV (9.4-12.4) fL Immature Gran % (Auto) (0.0-0.4) % Neut % (Auto) (45-73) % Lymph % (Auto) (20-40) % [place] % (Auto) (2-11) % Eos % (Auto) (0-4) % Baso % (Auto) (0-2) % Lymph # (Auto) (1.2-4.9) X10*3/uL [place] # (Auto) (0.1-1.2) X10*3/uL Eos # (Auto) (0.0-0.4) X10*3/uL Baso # (Auto) (0.0-0.2) X10*3/uL Abs Immat Gran (auto) (0.00-0.03) X10*3/uL Absolute Neuts (auto) (2.0-8.3) x10*3/uL Absolute Nucleated RBC (0.0-0.012) X10*3/uL Nucleated RBC % (auto) (0.0-0.2) /100WBC PT (10.0-13.1) SEC INR (0.9-1.1) APTT (26.0-36.4) SEC VBG pH 7.21 L (7.32-7.43) VBG pCO2 58 mmHg VBG pO2 32 mmHg VBG HCO3 23 (22-26) mmol/L VBG O2 Saturation 38.0 % VBG Base Excess -4.7 mmol/L Sodium (135-145) mmol/L Potassium (3.3-5.1) mmol/L Chloride (96-108) mmol/L Carbon Dioxide (22-29) mmol/L Anion Gap (12-20) BUN (9-16) mg/dL Creatinine (0.5-1.4) mg/dL Estim Creat Clear Calc Estimated GFR POC Glucose (60-115) mg/dL Random Glucose (60-115) mg/dL Lactic Acid (0.5-2.0) mmol/L Calcium (8.4-10.2) mg/dL Magnesium (1.6-2.6) mg/dL Total Bilirubin (0.0-1.0) mg/dL AST (5-37) U/L ALT (0-40) U/L Alkaline Phosphatase (39-117) U/L Total Creatine Kinase (38-174) U/L Troponin I High Sens (<3.5-35.0) ng/L Total Protein (6.5-8.0) g/dL Albumin (3.5-5.0) g/dL Lipase (8-78) U/L Urine Color Urine Appearance Urine pH (5.0-9.0) Ur Specific [place] (1.005-1.025) Urine Protein (Neg-Trace) mg/dL Urine Glucose (UA) (Negative) mg/dL Urine Ketones (Negative) mg/dL Urine Blood (Negative) Urine Nitrite (Negative) Ur Leukocyte Esterase (Negative) Urine RBC (0-2) /HPF Urine WBC (0-5) /HPF Ur Squamous Epith Cells (0-2) /HPF Urine Bacteria (None Seen) Hyaline Casts (0-2) /LPF Urine Opiates Screen (Not Detect) Urine Fentanyl Screen (Not Detect) Ur Barbiturates Screen (Not Detect) Ur Phencyclidine Scrn (Not Detect) Ur Amphetamines Screen (Not Detect) U Benzodiazepines Scrn (Not Detect) Urine Cocaine Screen (Not Detect) U Marijuana (THC) Screen (Not Detect) Ethyl Alcohol mg/dL Acetone, Qual (Negative) COVID-19 (ANA M) (Negative) COVID-19 Clin Com Influenza Type A (NEGRO) (Negative) Influenza Type B (NEGRO) (Negative) Influenza A & B Note Independent Interpretation I performed an independent interpretation of an: EKG Interpretation: 0226: Normal sinus rhythm rate of 90, normal NE interval and QRS duration. Prolonged QTC of 491 milliseconds, no ST segment elevation, no ST segment depression, Q-wave in lead 3, inverted T-waves in lead 1 and aVL Critical Care Time Critical Care Time Critical Care Time: Yes Total Critical Care Time: 45 Attestation: Critical Care: The patient was critically ill with a high probability of imminent or life threatening deterioration. I spent greater than 30 minutes of discontinuous time evaluating the patient,delivering critical care at the bedside, discussing and evaluating pertinent data with consultants. Critical care time does not include time spent performing separately billable procedures or teaching. Total time spent performing critical care was 45 minutes. Discharge Plan Discharge Prescriptions: No Action gabapentin 600 mg tablet 1 tab PO BID amlodipine 5 mg tablet 1 tab PO DAILY aspirin 81 mg tablet,delayed release (DR/EC) 1 tab PO DAILY gabapentin 300 mg capsule 1 cap PO DAILY@1200 omeprazole 20 mg capsule,delayed release(DR/EC) 1 cap PO QAM lisinopril-hydrochlorothiazide 20-25 mg tablet 1 tab PO DAILY insulin aspart U-100 [Novolog Flexpen U-100 Insulin] 100 unit/mL (3 mL) insulin pen See Rx Instructions .ROUTE .COMPLEX Rx Instructions: sliding scale Lantus Solostar U-100 Insulin 100 unit/mL (3 mL) insulin pen 30 unit subcut BEDTIME Restasis 0.05 % dropperette 1 drp ophthalmic (eye) BID multivitamin Tablet 1 tab PO DAILY amoxicillin-pot clavulanate 875-125 mg tablet 1 tab PO BID 14 Days Qty: 28 0RF omeprazole 20 mg capsule,delayed release(DR/EC) 20 mg PO DAILY Qty: 30 0RF magnesium oxide 400 mg (241.3 mg magnesium) Tablet 400 mg PO BIDPC 30 Days Qty: 60 0RF
[2022-01-22] MEDS: 0.9 % Sodium Chloride 1,000 ML 999 ML IV ×3 (02:20→03:13)
[2022-01-22 02:30] LABS: MANUAL DIFF FLAG NO
[2022-01-22 02:32] LABS: Basophils Absolute Auto 0.1 X10*3/uL (0.0-0.2); Basophils Percent Auto 0.5 % (0-2); Eosinophils Absolute Auto 0.2 X10*3/uL (0.0-0.4); Eosinophils Percent Auto 2.1 % (0-4); Hematocrit 35.1 % (42.0-52.0); Hemoglobin 12.2 g/dl (14.0-18.0); Imm Gran Abs Auto 0.03 X10*3/uL (0.00-0.03); Imm Gran Pct Auto 0.3 % (0.0-0.4); Lymphocytes Absolute Auto 0.8 X10*3/uL (1.2-4.9); Lymphocytes Percent Auto 7.7 % (20-40); Mean Corpuscular HGB Conc 34.8 g/dl (31.0-36.0); Mean Corpuscular Hemoglobin 31.1 pg (27.0-33.0); Mean Corpuscular Volume 89.5 fL (80.0-98.0); Mean Platelet Volume 10.5 fL (9.4-12.4); Monocytes Absolute Auto 0.4 X10*3/uL (0.1-1.2); Monocytes Percent Auto 3.9 % (2-11); Neutrophils Absolute Auto 8.4 x10*3/uL (2.0-8.3); Neutrophils Percent Auto 85.5 % (45-73); Platelet Count 214 X10*3/uL (160-400); Red Blood Count 3.92 X10*6/uL (4.60-5.80); Red Cell Distribution Width 13.1 % (11.0-16.0); White Blood Count 9.8 X10*3/uL (4.8-10.8)
[2022-01-22 02:39] LABS: INTERNATIONAL NORM RATIO 0.9 (0.9-1.1)
[2022-01-22 02:42] LABS: Partial Thromboplastin Time 27.4 SEC (26.0-36.4)
--- NOTE | 2022-01-22 02:42 | PC.NURSE ---
PT taken to CT by this RN.
[2022-01-22 02:46] LABS: Lactic Acid 5.6 mmol/L (0.5-2.0)
[2022-01-22 02:51] LABS: IDNOW Serial# 16C4AD1C
[2022-01-22 02:51] LABS: COVID-19 Test Negative (Negative); IDNOW Serial# BCCEAD1C; Troponin-I High Sensitivity 30.2 ng/L (<3.5-35.0)
[2022-01-22 02:52] LABS: Alanine Aminotransferase 14 U/L (0-40); Albumin Level 2.7 g/dL (3.5-5.0); Alkaline Phosphatase 255 U/L (39-117); Anion Gap 19 (12-20); Aspartate Amino Transferase 22 U/L (5-37); Bilirubin Total 0.5 mg/dL (0.0-1.0); Blood Urea Nitrogen 30 mg/dL (9-16); Calcium 7.9 mg/dL (8.4-10.2); Carbon Dioxide 19 mmol/L (22-29); Chloride 102 mmol/L (96-108); Creatinine Clr Calc Pharmacy 38.7; Estimated Glomerular Filt Rate 31; Ethanol < 10 mg/dL; Glucose Random 731 mg/dL (60-115); Lipase 20 U/L (8-78); Magnesium 1.4 mg/dL (1.6-2.6); Potassium 4.4 mmol/L (3.3-5.1); Sodium 136 mmol/L (135-145); Total Protein 5.5 g/dL (6.5-8.0)
[2022-01-22 02:52] LABS: Influenza A Negative (Negative); Influenza B2 Negative (Negative)
[2022-01-22] MEDS: Insulin Regular, Human 100 UNIT/ML 3 ML VIAL 10 UNIT IVPUSH ×2 (02:59→05:13)
[2022-01-22] MEDS: Magnesium Sulfate/H2O 2 GM/50 ML PIGGYBACK IV (03:06)
--- NOTE | 2022-01-22 03:14 | PC.NURSE ---
MD at bedside, pt c/o spasms in lower extremities. MD aware.
[2022-01-22 03:30] LABS: Appearance Urine Clear; Color Urine Yellow; Glucose Urine UA >=1000 mg/dL (Negative); Leukocyte Esterase Urine Negative (Negative); Nitrite Urine Negative (Negative); PH 5.5 (5.0-9.0); Specific Gravity - Urine 1.025 (1.005-1.025); UMIC TRIGGER UACC YES; Urine Blood Moderate (2+) (Negative); Urine Ketones Negative (Negative); Urine Protein 300 (3+) mg/dL (Neg-Trace)
[2022-01-22 03:32] LABS: Bacteria Urine None Seen (None Seen); Hyaline Casts Urine 0-2 /LPF (0-2); Squamous Epithelial Cell Urine 0-2 /HPF (0-2); WBC Urine 0-5 /HPF (0-5)
--- NOTE | 2022-01-22 03:36 | PC.NURSE ---
BP 205/119 notified no new orders.
[2022-01-22 03:40] LABS: Amphetamine Screen Urine Not Detected (Not Detect); Barbiturates, Urine Not Detected (Not Detect); Benzodiazepines Screen Urine POSITIVE (Not Detect); Cannabinoid Screen Urine Not Detected (Not Detect); Cocaine Screen Urine POSITIVE (Not Detect); Fentanyl, urine Not Detected (Not Detect); Opiate Screen Urine Not Detected (Not Detect); Phencyclidine Screen Urine Not Detected (Not Detect)
[2022-01-22] MEDS: lisinopriL 20 MG TABLET PO (03:52)
[2022-01-22] MEDS: amLODIPine Besylate 5 MG TABLET PO (03:52)
[2022-01-22 04:11] LABS: Acetone, serum QL Negative (Negative)
[2022-01-22 04:29] LABS: Venous Blood Gas Refer to POC result
--- NOTE | 2022-01-22 04:30 | PC.NURSE ---
Critical labs report to Josr Mcqueen of [facility] 7.21, Dr. Marx aware.
[2022-01-22 04:31] LABS: VBG Base Excess -4.7 mmol/L; VBG HCO3 23 mmol/L (22-26); VBG pCO2 58 mmHg; VBG pH 7.21 (7.32-7.43); VBG pO2 32 mmHg
[2022-01-22 04:35] LABS: Lactic Acid 1.6 mmol/L (0.5-2.0)
[2022-01-22 04:46] LABS: Glucose, Whole Blood 402 mg/dL (60-115)
[2022-01-22 05:14] LABS: Glucose, Whole Blood 434 mg/dL (60-115)
[2022-01-22 06:15] LABS: Glucose, Whole Blood 251 mg/dL (60-115)
[2022-01-22 07:30] LABS: Glucose, Whole Blood 137 mg/dL (60-115)
--- NOTE | 2022-01-22 07:42 | PC.NURSE ---
report taken from addis roque pt resting in bed, easily awoken to voice. iv in place, pt is resting comfortably in stretcher w seizure precaustions in place. complaining of global cramping at this time, had been treated for critically low mag. provider alerted that pt glucose has dropped approx 600 pts in past 4 hrs, most recent poc 137. pt given partial breakfast tray with mostly diabetic options but given oatmeal and milk to reduce chance of hypoglycemic event. wctm, awaiting admission orders.
--- NOTE | 2022-01-22 08:21 | PM.IMHP ---
History of Present Illness Date of Service: 01/22/22 Attending physician on admission: Rashaad [facility] Chief Complaint: New-onset seizures Patient is a 46 year old male with past medical history significant for insulin-dependent diabetes, glaucoma, HTN, and HLD who was brought to the ED by EMS for evaluation of seizure. Patient reports that he was sleeping in his room and woke up to get a glass of water. Patient noted that his legs started shaking uncontrollably and he fell to the floor in an apparent tonic-clonic seizure. Pt could not find his phone so went down to his neighbor's to get help, where he then had another two seizures in front of his neighbors while awaiting EMS. Paramedics report the patient appeared postictal and then went into another tonic-clonic seizure when they were moving him. EMS administered Versed 2mg intranasally, and measured a POC of 564. Pt notes he was conscious during these episodes and was trying to fight them, but couldn't control his body. He felt tired, dizzy, and confused after each episode. Pt notes his neighbors claim his eyes rolled in the back of his head during episodes. Pt now complains of whole body ache and pain, which he says feels like it is located in his muscles. Also reports feeling anxious and unable to relax. No chest pressure, but has a non-productive cough and feels like he can't get a full breath. Denies any new medications or medication changes. Claims he has been compliant with his medications, including for diabetes management. Denies any use of alcohol or illicit substances. When asked about positive tox screen for cocaine, pt denied any recent use (admits to trying it a few times when much younger). But did note two days ago he was feeling like he had the flu and a friend gave him a small cupful of unknown liquid medicine to make him feel better and help with the pain. Pt says it tasted like cough medicine but does not know what it was. In the ED, Labs were significant for random glucose of 731, POC a 365, lactic acid of 5.6, calcium 7.9, magnesium of 1.4, alk-phos of 255, total protein 5.5, albumin of 2.7. Creatinine was 2.2, and VBG pH was 7.21. Tox screen was positive for benzos and cocaine. EKG was normal sinus rhythm with a prolonged QTc of 491 CT of head no acute intracranial abnormality. Chest x-ray found evidence for parenchymal scarring, but no new consolidation. Patient was given 3 L of normal saline, 10 units of insulin x2, and 2 g of IV magnesium. Patient be admitted to the hospital for further treatment and workup of new onset seizure. Review of Systems Review of Systems: Uncontrolled body movement Dizziness Confusion Diffuse body aches No chest pressure No loss of bowel or bladder function [facility] Medical History Cavitary lesion of lung Cavitary pneumonia Diabetes HTN (hypertension) Leukemia Lung abscess Family History Father Diabetes mellitus Social History Alcohol intake: unknown Patient Tobacco Use Status: Never used Tobacco Smoked in Last 30 Days: No Use of substances other than those prescribed or required for medical reasons: Unknown Advance Directives: No Advance Directives Information Provided: No service: No Current occupational status: unemployed Meds Allergies Allergy/AdvReac Type Severity Reaction Status Date / Time No Known Allergies Allergy Verified 03/31/21 04:00 Home Medications Medication Instructions Recorded Confirmed Last Taken Type amlodipine 5 mg tablet 1 tab PO DAILY 03/31/21 01/22/22 01/20/22 History aspirin 81 mg tablet,delayed 1 tab PO DAILY 03/31/21 01/22/22 01/20/22 History release cyclosporine 0.05 % eye drops in a 1 drp ophthalmic (eye) BID PRN Dry 03/31/21 01/22/22 03/30/21 History dropperette (Restasis) Eye(S) gabapentin 600 mg tablet 1 tab PO BID 03/31/21 01/22/22 01/20/22 History insulin aspart U-100 100 unit/mL See Rx Instructions .Route .COMPLEX 03/31/21 01/22/22 01/20/22 History (3 mL) subcutaneous pen (Novolog Flexpen U-100 Insulin aspart) lisinopril 20 1 tab PO DAILY 03/31/21 01/22/22 01/20/22 History mg-hydrochlorothiazide 25 mg tablet multivitamin 1 tab PO DAILY 03/31/21 01/22/22 01/20/22 History acetaminophen 325 mg tablet 650 mg PO Q6H PRN Pain 01/22/22 01/22/22 Unknown History atorvastatin 10 mg tablet 10 mg PO DAILY 01/22/22 01/22/22 01/20/22 History clotrimazole-betamethasone 1 1 appl topical BID 01/22/22 01/22/22 01/20/22 History %-0.05 % lotion insulin degludec 100 unit/mL (3 12 unit subcut BEDTIME 01/22/22 01/22/22 01/20/22 History mL) subcutaneous pen (Tresiba FlexTouch U-100 insulin) Physical Exam Vital Signs and Narrative: Vital Signs: Last Vital Signs Temp 97.9 F 01/22/22 06:16 Pulse 85 01/22/22 06:29 Resp 19 01/22/22 06:29 BP 146/92 H 01/22/22 06:29 Pulse Ox 100 01/22/22 06:29 O2 Del Method 01/22/22 06:29 O2 Flow Rate 2 01/22/22 06:29 Oxygen Flow Rate 2 01/22/22 02:15 BMI result Body Mass Index 27.1 Constitutional: Alert, in no acute distress. Mental Status: Oriented to person, place and time. Eyes: Pupils are equal, round, and reactive to light. Ear, Nose, and Throat: Oropharynx clear, mucous membranes moist. Ears and nose without deformities. Trachea midline. Respiratory: Clear to auscultation bilaterally. No wheezing, rales, or rhonchi. Cardiovascular: S1, S2 regular. No murmurs, rubs, or gallops. Gastrointestinal: Abdomen soft, non-tender, non-distended. Normal bowel sounds. Neurologic: Cranial nerves II-XI are grossly intact. No focal neurological deficits. Moves all extremities spontaneously. Skin: No rashes of lesions. Musculoskeletal: Generalized muscle tenderness to superficial palpation, nothing focal. Extremities: No edema. Psychiatric: Normal mood and affect. Results Labs CBC and Chem 7: 01/22/22 02:23 01/22/22 02:23 Labs: Laboratory Results - last 24 hr 01/22/22 01/22/22 01/22/22 02:23 02:23 02:23 MCV 89.5 MCH 31.1 MCHC 34.8 RDW 13.1 Plt Count 214 MPV 10.5 Immature Gran % (Auto) 0.3 Neut % (Auto) 85.5 H Lymph % (Auto) 7.7 L [place] % (Auto) 3.9 Eos % (Auto) 2.1 Baso % (Auto) 0.5 Lymph # (Auto) 0.8 L [place] # (Auto) 0.4 Eos # (Auto) 0.2 Baso # (Auto) 0.1 Abs Immat Gran (auto) 0.03 Absolute Neuts (auto) 8.4 H Absolute Nucleated RBC 0.000 Nucleated RBC % (auto) 0.0 PT 10.0 INR 0.9 APTT 27.4 VBG pH VBG pCO2 VBG pO2 VBG HCO3 VBG O2 Saturation VBG Base Excess Anion Gap Estim Creat Clear Calc Estimated GFR POC Glucose Random Glucose Lactic Acid Calcium Magnesium Total Bilirubin AST ALT Alkaline Phosphatase Total Creatine Kinase Troponin I High Sens Total Protein Albumin Lipase Urine Color Urine Appearance Urine pH Ur Specific [place] Urine Protein Urine Glucose (UA) Urine Ketones Urine Blood Urine Nitrite Ur Leukocyte Esterase Urine RBC Urine WBC Ur Squamous Epith Cells Urine Bacteria Hyaline Casts Urine Opiates Screen Urine Fentanyl Screen Ur Barbiturates Screen Ur Phencyclidine Scrn Ur Amphetamines Screen U Benzodiazepines Scrn Urine Cocaine Screen U Marijuana (THC) Screen Ethyl Alcohol Acetone, Qual COVID-19 (ANA M) Negative COVID-19 Clin Com See Note Influenza Type A (NEGRO) Influenza Type B (NEGRO) Influenza A & B Note 01/22/22 01/22/22 01/22/22 02:23 02:23 02:23 MCV MCH MCHC RDW Plt Count MPV Immature Gran % (Auto) Neut % (Auto) Lymph % (Auto) [place] % (Auto) Eos % (Auto) Baso % (Auto) Lymph # (Auto) [place] # (Auto) Eos # (Auto) Baso # (Auto) Abs Immat Gran (auto) Absolute Neuts (auto) Absolute Nucleated RBC Nucleated RBC % (auto) PT INR APTT VBG pH VBG pCO2 VBG pO2 VBG HCO3 VBG O2 Saturation VBG Base Excess Anion Gap 19 Estim Creat Clear Calc 38.7 Estimated GFR 31 POC Glucose Random Glucose 731 H* Lactic Acid Calcium 7.9 L Magnesium 1.4 L* Total Bilirubin 0.5 AST 22 ALT 14 Alkaline Phosphatase 255 H Total Creatine Kinase 130 Troponin I High Sens 30.2 Total Protein 5.5 L Albumin 2.7 L Lipase 20 Urine Color Urine Appearance Urine pH Ur Specific [place] Urine Protein Urine Glucose (UA) Urine Ketones Urine Blood Urine Nitrite Ur Leukocyte Esterase Urine RBC Urine WBC Ur Squamous Epith Cells Urine Bacteria Hyaline Casts Urine Opiates Screen Urine Fentanyl Screen Ur Barbiturates Screen Ur Phencyclidine Scrn Ur Amphetamines Screen U Benzodiazepines Scrn Urine Cocaine Screen U Marijuana (THC) Screen Ethyl Alcohol < 10 Acetone, Qual Negative COVID-19 (ANA M) COVID-19 Clin Com Influenza Type A (NEGRO) Influenza Type B (NEGRO) Influenza A & B Note 01/22/22 01/22/22 01/22/22 02:24 02:25 03:27 MCV MCH MCHC RDW Plt Count MPV Immature Gran % (Auto) Neut % (Auto) Lymph % (Auto) [place] % (Auto) Eos % (Auto) Baso % (Auto) Lymph # (Auto) [place] # (Auto) Eos # (Auto) Baso # (Auto) Abs Immat Gran (auto) Absolute Neuts (auto) Absolute Nucleated RBC Nucleated RBC % (auto) PT INR APTT VBG pH VBG pCO2 VBG pO2 VBG HCO3 VBG O2 Saturation VBG Base Excess Anion Gap Estim Creat Clear Calc Estimated GFR POC Glucose Random Glucose Lactic Acid 5.6 H* Calcium Magnesium Total Bilirubin AST ALT Alkaline Phosphatase Total Creatine Kinase Troponin I High Sens Total Protein Albumin Lipase Urine Color Yellow Urine Appearance Clear Urine pH 5.5 Ur Specific [place] 1.025 Urine Protein 300 (3+) H Urine Glucose (UA) >=1000 H Urine Ketones Negative Urine Blood Moderate (2+) H Urine Nitrite Negative Ur Leukocyte Esterase Negative Urine RBC 11-20 H Urine WBC 0-5 Ur Squamous Epith Cells 0-2 Urine Bacteria None Seen Hyaline Casts 0-2 Urine Opiates Screen Urine Fentanyl Screen Ur Barbiturates Screen Ur Phencyclidine Scrn Ur Amphetamines Screen U Benzodiazepines Scrn Urine Cocaine Screen U Marijuana (THC) Screen Ethyl Alcohol Acetone, Qual COVID-19 (ANA M) COVID-19 Clin Com Influenza Type A (NEGRO) Negative Influenza Type B (NEGRO) Negative Influenza A & B Note See Note 01/22/22 01/22/22 01/22/22 03:27 04:03 04:10 MCV MCH MCHC RDW Plt Count MPV Immature Gran % (Auto) Neut % (Auto) Lymph % (Auto) [place] % (Auto) Eos % (Auto) Baso % (Auto) Lymph # (Auto) [place] # (Auto) Eos # (Auto) Baso # (Auto) Abs Immat Gran (auto) Absolute Neuts (auto) Absolute Nucleated RBC Nucleated RBC % (auto) PT INR APTT VBG pH VBG pCO2 VBG pO2 VBG HCO3 VBG O2 Saturation VBG Base Excess Anion Gap Estim Creat Clear Calc Estimated GFR POC Glucose 402 H* Random Glucose Lactic Acid 1.6 Calcium Magnesium Total Bilirubin AST ALT Alkaline Phosphatase Total Creatine Kinase Troponin I High Sens Total Protein Albumin Lipase Urine Color Urine Appearance Urine pH Ur Specific [place] Urine Protein Urine Glucose (UA) Urine Ketones Urine Blood Urine Nitrite Ur Leukocyte Esterase Urine RBC Urine WBC Ur Squamous Epith Cells Urine Bacteria Hyaline Casts Urine Opiates Screen Not Detected Urine Fentanyl Screen Not Detected Ur Barbiturates Screen Not Detected Ur Phencyclidine Scrn Not Detected Ur Amphetamines Screen Not Detected U Benzodiazepines Scrn POSITIVE H Urine Cocaine Screen POSITIVE H U Marijuana (THC) Screen Not Detected Ethyl Alcohol Acetone, Qual COVID-19 (ANA M) COVID-19 Clin Com Influenza Type A (NEGRO) Influenza Type B (NEGRO) Influenza A & B Note 01/22/22 01/22/22 01/22/22 04:21 05:03 06:09 MCV MCH MCHC RDW Plt Count MPV Immature Gran % (Auto) Neut % (Auto) Lymph % (Auto) [place] % (Auto) Eos % (Auto) Baso % (Auto) Lymph # (Auto) [place] # (Auto) Eos # (Auto) Baso # (Auto) Abs Immat Gran (auto) Absolute Neuts (auto) Absolute Nucleated RBC Nucleated RBC % (auto) PT INR APTT VBG pH 7.21 L VBG pCO2 58 VBG pO2 32 VBG HCO3 23 VBG O2 Saturation 38.0 VBG Base Excess -4.7 Anion Gap Estim Creat Clear Calc Estimated GFR POC Glucose 434 H* 251 H Random Glucose Lactic Acid Calcium Magnesium Total Bilirubin AST ALT Alkaline Phosphatase Total Creatine Kinase Troponin I High Sens Total Protein Albumin Lipase Urine Color Urine Appearance Urine pH Ur Specific [place] Urine Protein Urine Glucose (UA) Urine Ketones Urine Blood Urine Nitrite Ur Leukocyte Esterase Urine RBC Urine WBC Ur Squamous Epith Cells Urine Bacteria Hyaline Casts Urine Opiates Screen Urine Fentanyl Screen Ur Barbiturates Screen Ur Phencyclidine Scrn Ur Amphetamines Screen U Benzodiazepines Scrn Urine Cocaine Screen U Marijuana (THC) Screen Ethyl Alcohol Acetone, Qual COVID-19 (ANA M) COVID-19 Clin Com Influenza Type A (NEGRO) Influenza Type B (NEGRO) Influenza A & B Note 01/22/22 07:26 MCV MCH MCHC RDW Plt Count MPV Immature Gran % (Auto) Neut % (Auto) Lymph % (Auto) [place] % (Auto) Eos % (Auto) Baso % (Auto) Lymph # (Auto) [place] # (Auto) Eos # (Auto) Baso # (Auto) Abs Immat Gran (auto) Absolute Neuts (auto) Absolute Nucleated RBC Nucleated RBC % (auto) PT INR APTT VBG pH VBG pCO2 VBG pO2 VBG HCO3 VBG O2 Saturation VBG Base Excess Anion Gap Estim Creat Clear Calc Estimated GFR POC Glucose 137 H Random Glucose Lactic Acid Calcium Magnesium Total Bilirubin AST ALT Alkaline Phosphatase Total Creatine Kinase Troponin I High Sens Total Protein Albumin Lipase Urine Color Urine Appearance Urine pH Ur Specific [place] Urine Protein Urine Glucose (UA) Urine Ketones Urine Blood Urine Nitrite Ur Leukocyte Esterase Urine RBC Urine WBC Ur Squamous Epith Cells Urine Bacteria Hyaline Casts Urine Opiates Screen Urine Fentanyl Screen Ur Barbiturates Screen Ur Phencyclidine Scrn Ur Amphetamines Screen U Benzodiazepines Scrn Urine Cocaine Screen U Marijuana (THC) Screen Ethyl Alcohol Acetone, Qual COVID-19 (ANA M) COVID-19 Clin Com Influenza Type A (NEGRO) Influenza Type B (NEGRO) Influenza A & B Note Imaging Radiologist's Impressions: Impressions Head CT 01/22/22 02:45 IMPRESSION: No acute intracranial abnormality including hemorrhage, mass effect, hydrocephalus, or acute territorial edematous infarction. Chest X-Ray 01/22/22 02:50 IMPRESSION: Residual architectural distortion and subpleural thickening in the area of a previously visualized consolidation in the right middle lobe. No new focal airspace opacity. Assessment and Plan (1) New onset seizure: Status: Acute (2) Acute hyperglycemia: Status: Acute (3) Hypomagnesemia: Status: Acute (4) HTN (hypertension): Status: Acute Plan Patient is a 46 year old male with past medical history significant for insulin-dependent diabetes, glaucoma, HTN, and HLD who was brought to the ED by EMS for evaluation of new-onset seizures. Pt will be admitted to telemetry for further evaluation and workup. # new-onset seizure -- unclear etiology, possibly hyperglycemia or intoxication -- hyperglycemia on arrival: radom glucose of 731, POC of 365 -- tox screen positive for benzos and cocaine -- EEG -- neurology consult -- hold all home meds -- tylenol for pain # NEELA -- etiology unclear, possibly dehydration -- IVF -- follow labs # lactic acidosis, now resolved -- most likely secondary to seizure -- initial lactaid # insulin-dependent diabetes mellitus -- pt came in with hyperglycemia, now corrected -- hold home meds -- ssi, lantus # hypomagnesmia -- given Mg 2g IV in ED -- follow labs # HLD -- hold home meds for now # HTN -- hold home meds for now Full code Attending: Dr. Villela DVT Prophylaxis: Lovenox Pt will require a hospitalization of at least two nights for treatment and evaluation of new onset seizures. Time Spent With Patient Time: Total time managing care of this patient today ____ minutes. Quality Stroke Does the patient have a stroke diagnosis?: No VTE Prior VTE?: No VTE Risk Level:: Medical - moderate - high VTE Device Contraindication: Treatment Not Indicated VTE Drug Contraindication: N/A - Med Ordered
--- NOTE | 2022-01-22 08:41 | PHA.MEDREC ---
Pharmacy Consult ? Medication Reconciliation Pharmacy has completed the medication reconciliation. Patient confirmed all medications. Reports another eye drops besides restasis for gluacoma but he does not know the names and nothing on claim history. Aleisha Toro, PharmD
[2022-01-22] MEDS: Enoxaparin Sodium 40 MG/0.4 ML SYRINGE SUBCUT (10:28)
[2022-01-22] MEDS: 0.9 % Sodium Chloride 1,000 ML 100 ML IVCONT ×2 (10:28→20:10)
[2022-01-22 12:25] LABS: Glucose, Whole Blood 219 mg/dL (60-115)
[2022-01-22] MEDS: Insulin Lispro 100 UNIT/ML 3 ML VIAL SUBCUT ×3 (12:56→20:10)
--- NOTE | 2022-01-22 12:58 | P.CNNE_ITS ---
History of Present Illness Data of Consult Service Date: 01/22/22 Primary Care Provider: Unknown Physician HPI Reason for consult: Seizures 46 years old man with insulin-dependent diabetes disable from what he described as leukemia and drug abuse who was brought to hospital after he had seizure-like episodes. He said that he never had seizures before. This time his right leg started to shake and then seizure happened. He said that he had 3 or 4 episodes. Now he was feeling better his initial blood sugar was 731. Tox screen was positive for cocaine Review of Systems Review of Systems: No recent trauma or cold or flu-like illness PMFSH Past Medical History Medical History Cavitary lesion of lung Cavitary pneumonia Diabetes HTN (hypertension) Leukemia Lung abscess Family History Family History Father Diabetes mellitus Social History Social History Alcohol intake: unknown Patient Tobacco Use Status: Never used Tobacco Smoked in Last 30 Days: No Use of substances other than those prescribed or required for medical reasons: Unknown Advance Directives: No Advance Directives Information Provided: No service: No Current occupational status: unemployed Meds Allergies Allergy/AdvReac Type Severity Reaction Status Date / Time No Known Allergies Allergy Verified 03/31/21 04:00 Active Medications: Current Medications Acetaminophen (Acetaminophen 325 Mg Tablet) 650 mg PO Q6H PRN PRN Reason: Pain, Mild (Pain Scale 1-3) Dextrose (Dextrose 50 % 25 Gm/50 Ml Syringe) 25 gm IVPUSH Q15M PRN; Protocol PRN Reason: per Hypoglycemia Standing Ord. Docusate Sodium (Docusate Sodium 100 Mg Capsule) 100 mg PO DAILY PRN PRN Reason: Constipation Enoxaparin Sodium (Enoxaparin Sodium 40 Mg/0.4 Ml Syringe) 40 mg SUBCUT Q24H [facility] Last Admin: 01/22/22 10:28 Dose: 40 mg Glucose (Glucose Gel 15 Gm Gel..Gram.) 15 gm PO Q15M PRN; Protocol PRN Reason: per Hypoglycemia Standing Ord. Sodium Chloride (Ns) 1,000 mls @ 100 mls/hr IVCONT .Q10H [facility] Last Admin: 01/22/22 10:28 Dose: 100 mls/hr Insulin Glargine (Insulin Glargine,Hum.Rec.Anlog 100 Unit/Ml 10 Ml Vial) 9 unit SUBCUT BEDTIME [facility] Insulin Human Lispro (Insulin Lispro 100 Unit/Ml 3 Ml Vial) 0 unit SUBCUT QIDACHS [facility]; Protocol Last Admin: 01/22/22 12:56 Dose: 4 unit Ondansetron HCl (Ondansetron Hcl 4 Mg/2 Ml Vial) 4 mg IVPUSH Q8H PRN PRN Reason: Nausea and Vomiting Sodium Chloride (0.9 % Sodium Chloride Flush 3 Ml Syringe) 3 ml IVFLUSH QSHIFT [facility] Home Medications Medication Instructions Recorded Confirmed Last Taken Type amlodipine 5 mg tablet 1 tab PO DAILY 03/31/21 01/22/22 01/20/22 History aspirin 81 mg tablet,delayed 1 tab PO DAILY 03/31/21 01/22/22 01/20/22 History release cyclosporine 0.05 % eye drops in a 1 drp ophthalmic (eye) BID PRN Dry 03/31/21 01/22/22 03/30/21 History dropperette (Restasis) Eye(S) gabapentin 600 mg tablet 1 tab PO BID 03/31/21 01/22/22 01/20/22 History insulin aspart U-100 100 unit/mL See Rx Instructions .Route .COMPLEX 03/31/21 01/22/22 01/20/22 History (3 mL) subcutaneous pen (Novolog Flexpen U-100 Insulin aspart) lisinopril 20 1 tab PO DAILY 03/31/21 01/22/22 01/20/22 History mg-hydrochlorothiazide 25 mg tablet multivitamin 1 tab PO DAILY 03/31/21 01/22/22 01/20/22 History acetaminophen 325 mg tablet 650 mg PO Q6H PRN Pain 01/22/22 01/22/22 Unknown History atorvastatin 10 mg tablet 10 mg PO DAILY 01/22/22 01/22/22 01/20/22 History clotrimazole-betamethasone 1 1 appl topical BID 01/22/22 01/22/22 01/20/22 History %-0.05 % lotion insulin degludec 100 unit/mL (3 12 unit subcut BEDTIME 01/22/22 01/22/22 01/20/22 History mL) subcutaneous pen (Tresiba FlexTouch U-100 insulin) Physical Exam Vital Signs: Vital Signs: Last Vital Signs Temp 97.9 F 01/22/22 06:16 Pulse 87 01/22/22 10:46 Resp 15 01/22/22 10:46 BP 168/93 H 01/22/22 10:46 Pulse Ox 98 01/22/22 10:46 O2 Del Method 01/22/22 10:46 O2 Flow Rate 2 01/22/22 10:46 Oxygen Flow Rate 2 01/22/22 02:15 BMI result Body Mass Index 27.1 Neuro: Other: He is alert and awake with normal spontaneity of speech fluency comprehension and affect. Pupils are round reactive to light. Visual flowers are full. Face is symmetrical. Tongue is midline. There is no focal arm or leg weakness. Deep tendon reflexes were trace to absent with flexor plantars. Results Labs CBC & Chem 7: 01/22/22 02:23 01/22/22 02:23 Labs: Short CBC 01/22/22 Range/Units 02:23 WBC 9.8 (4.8-10.8) X10*3/uL Hgb 12.2 L D (14.0-18.0) g/dl Hct 35.1 L (42.0-52.0) % Plt Count 214 (160-400) X10*3/uL BMP 01/22/22 02:23 Sodium 136 Potassium 4.4 Chloride 102 Carbon Dioxide 19 L BUN 30 H Creatinine 2.28 H Calcium 7.9 L Cardiac Enzymes 01/22/22 Range/Units 02:23 Total Creatine Kinase 130 (38-174) U/L Liver Function 01/22/22 Range/Units 02:23 Total Bilirubin 0.5 (0.0-1.0) mg/dL AST 22 (5-37) U/L ALT 14 (0-40) U/L Alkaline Phosphatase 255 H (39-117) U/L Albumin 2.7 L (3.5-5.0) g/dL Urine 01/22/22 Range/Units 03:27 Urine Color Yellow Urine Appearance Clear Urine pH 5.5 (5.0-9.0) Ur Specific [place] 1.025 (1.005-1.025) Urine Protein 300 (3+) H (Neg-Trace) mg/dL Urine Glucose (UA) >=1000 H (Negative) mg/dL [id number] cerebral atrophy is noted for his age group. Assessment and Plan (1) New onset seizure: Status: Acute 46 years old man with multiple convulsion type of episodes while his blood sugar was 731 and tox screen was positive for cocaine. I would not consider this as onset of epilepsy. Mainstay of management is sugar control and avoidance of drugs. He should be advised to not drive at this time. Time Spent With Patient Time: Total time managing care of this patient today ____ minutes. Procedures Date of Service Date of Service: 01/22/22
[2022-01-22 13:29] LABS: Free T4 (Free Thyroxine) 0.87 ng/dL (0.71-1.85)
[2022-01-22 16:12] LABS: Glucose, Whole Blood 340 mg/dL (60-115)
--- NOTE | 2022-01-22 16:41 | PC.NURSE ---
at 1555. pt c/o chest tightness and could not get a full breath. increased fr 2L to 3L NC. Gurpreet FOSTER notified. At 16:40 Pt reported a bit decrease in chest tightness. pt O2 sat was 99% and NSR in 90s. PA notified again.
[2022-01-22 20:01] LABS: Glucose, Whole Blood 188 mg/dL (60-115)
[2022-01-22] MEDS: Insulin Glargine,Hum.rec.anlog 100 UNIT/ML 10 ML VIAL 9 UNIT SUBCUT (20:10)
[2022-01-22] MEDS: 0.9 % Sodium Chloride Flush 3 ML SYRINGE IVFLUSH (20:10)
[2022-01-23] VITALS (9 sets, daily range): BP systolic 158–199; BP diastolic 70–106; PULSE 86–93; RESP 16–18; TEMP 36.6–37.1; O2SAT 86–98
--- NOTE | 2022-01-23 | ECG_ITS ---
Test Reason : chest pain Blood Pressure : / mmHG Vent. Rate : 087 BPM Atrial Rate : 087 BPM P-R Int : 170 ms QRS Dur : 082 ms QT Int : 388 ms P-R-T Axes : 021 -19 098 degrees QTc Int : 466 ms Normal sinus rhythm Low voltage QRS Septal infarct , age undetermined cannot exclude old Inferior infarct , age undetermined Abnormal ECG When compared with ECG of 22-JAN-2022 02:26, No significant change was found Referred By: Robert Garcia Electronically Signed By:EFRAIN WOODWARD
--- NOTE | 2022-01-23 | EEG_ITS ---
Waking background activity consists of low voltage fast frequencies seen diffusely, intermixed with low voltage posterior 9 to 10 hertz alpha frequency. Photic stimulation is without activation. Hyperventilation produces mild background slowing. No sleep stages are identified. No focal, lateralizing, or paroxysmal discharges are seen. IMPRESSION: This waking EEG is within normal limits. MD CHELLY Pabon/LAVINIA / [phone]
[2022-01-23] MEDS: 0.9 % Sodium Chloride 1,000 ML 100 ML IVCONT (05:53)
[2022-01-23 07:04] LABS: Hematocrit 35.6 % (42.0-52.0); Hemoglobin 12.2 g/dl (14.0-18.0); Mean Corpuscular HGB Conc 34.3 g/dl (31.0-36.0); Mean Corpuscular Hemoglobin 30.3 pg (27.0-33.0); Mean Corpuscular Volume 88.3 fL (80.0-98.0); Mean Platelet Volume 10.2 fL (9.4-12.4); Platelet Count 217 X10*3/uL (160-400); Red Blood Count 4.03 X10*6/uL (4.60-5.80); Red Cell Distribution Width 13.2 % (11.0-16.0); White Blood Count 8.2 X10*3/uL (4.8-10.8)
[2022-01-23 07:20] LABS: Anion Gap 13 (12-20); Blood Urea Nitrogen 23 mg/dL (9-16); Calcium 8.1 mg/dL (8.4-10.2); Carbon Dioxide 23 mmol/L (22-29); Chloride 108 mmol/L (96-108); Creatinine Clr Calc Pharmacy 64.7; Estimated Glomerular Filt Rate 51; Glucose Random 217 mg/dL (60-115); Magnesium 1.7 mg/dL (1.6-2.6); Potassium 4.1 mmol/L (3.3-5.1); Sodium 140 mmol/L (135-145)
[2022-01-23 08:29] LABS: Glucose, Whole Blood 196 mg/dL (60-115)
[2022-01-23] MEDS: Insulin Lispro 100 UNIT/ML 3 ML VIAL SUBCUT ×4 (08:35→20:45)
[2022-01-23] MEDS: amLODIPine Besylate 10 MG TABLET PO (09:05)
--- NOTE | 2022-01-23 09:16 | P.PNIM_ITS ---
Subjective Subjective Date of Service: 01/23/22 <CRISTIAN Robertson - Last Filed: 01/23/22 10:26> 01/23/22 <Robert Garcia MD - Last Filed: 01/23/22 13:50> Interval History: Pt seen for f/u of new-onset seizures x3-4. Interval history: Pt seen at bedside eating breakfast. Complains of nonproductive cough and chest tightness that he can feel with inspiration, like he can't get a full breath. Feels it might be related to his anxiety, which has increased due to worry over his current condition. Denies chest pain/pressure, SOB. No fever, lightheadedness, abdominal pain. <CRISTIAN Robertson - Last Filed: 01/23/22 10:26> Review of Systems Chest tightness with inspiration Nonproductive cough No chest pain/pressure No SOB <CRISTIAN Robertson - Last Filed: 01/23/22 10:26> Review of Systems: Yes all other systems are reviewed and are negative <CRISTIAN Robertson - Last Filed: 01/23/22 10:26> Physical Exam Vital Signs: Vital Signs: Last Vital Signs Temp 97.9 F 01/23/22 08:00 Pulse 87 01/23/22 08:00 Resp 18 01/23/22 08:00 BP 199/106 H 01/23/22 08:00 Pulse Ox 98 01/23/22 08:37 O2 Del Method 01/23/22 08:37 O2 Flow Rate 2 01/23/22 03:08 Oxygen Flow Rate 2 01/22/22 02:15 BMI result Body Mass Index 28.2 <CRISTIAN Roberston - Last Filed: 01/23/22 10:26> General: AOx3, no acute distress Resp: CTA bilaterally CVS: S1, S2, RRR GI: +BS, NT, no distention Skin: No rash Neuro: Motor grossly intact Psych: Appropriate affect <CRISTIAN Robertson Last Filed: 01/23/22 10:26> Objective Data Active Medications Acetaminophen (Acetaminophen 325 Mg Tablet) 650 mg PO Q6H PRN PRN Reason: Pain, Mild (Pain Scale 1-3) Dextrose (Dextrose 50 % 25 Gm/50 Ml Syringe) 25 gm IVPUSH Q15M PRN; Protocol PRN Reason: per Hypoglycemia Standing Ord. Docusate Sodium (Docusate Sodium 100 Mg Capsule) 100 mg PO DAILY PRN PRN Reason: Constipation Enoxaparin Sodium (Enoxaparin Sodium 40 Mg/0.4 Ml Syringe) 40 mg SUBCUT Q24H [facility] Last Admin: 01/22/22 10:28 Dose: 40 mg Documented By: AVERY Glucose (Glucose Gel 15 Gm Gel..Gram.) 15 gm PO Q15M PRN; Protocol PRN Reason: per Hypoglycemia Standing Ord. Insulin Glargine (Insulin Glargine,Hum.Rec.Anlog 100 Unit/Ml 10 Ml Vial) 9 unit SUBCUT BEDTIME [facility] Last Admin: 01/22/22 20:10 Dose: 9 unit Documented By: JOSELINE Insulin Human Lispro (Insulin Lispro 100 Unit/Ml 3 Ml Vial) 0 unit SUBCUT QIDACHS [facility]; Protocol Last Admin: 01/23/22 08:35 Dose: 2 unit Documented By: ROBIN Ondansetron HCl (Ondansetron Hcl 4 Mg/2 Ml Vial) 4 mg IVPUSH Q8H PRN PRN Reason: Nausea and Vomiting Sodium Chloride (0.9 % Sodium Chloride Flush 3 Ml Syringe) 3 ml IVFLUSH QSHIFT [facility] Last Admin: 01/23/22 08:05 Dose: Not Given Documented By: ROBIN Non-Admin Reason: IV Running <CRISTIAN Robertson - Last Filed: 01/23/22 10:26> Labs CBC & Chem 7: : 01/23/22 06:52 01/23/22 06:52 <CRISTIAN Robertson - Last Filed: 01/23/22 10:26> Labs: Laboratory Results - last 24 hr 01/22/22 01/22/22 01/22/22 02:23 12: 16:09 MCV MCH MCHC RDW Plt Count MPV Absolute Nucleated RBC Nucleated RBC % (auto) Anion Gap Estim Creat Clear Calc Estimated GFR POC Glucose 219 H 340 H Random Glucose Calcium Magnesium TSH 7.30 H Free T4 0.87 01/22/22 01/23/22 01/23/22 19:53 06:52 06:52 MCV 88.3 MCH 30.3 MCHC 34.3 RDW 13.2 Plt Count 217 MPV 10.2 Absolute Nucleated RBC 0.000 Nucleated RBC % (auto) 0.0 Anion Gap 13 Estim Creat Clear Calc 64.7 Estimated GFR 51 POC Glucose 188 H Random Glucose 217 H Calcium 8.1 L Magnesium 1.7 TSH Free T4 01/23/22 08:14 MCV MCH MCHC RDW Plt Count MPV Absolute Nucleated RBC Nucleated RBC % (auto) Anion Gap Estim Creat Clear Calc Estimated GFR POC Glucose 196 H Random Glucose Calcium Magnesium TSH Free T4 <CRISTIAN Robertson - Last Filed: 01/23/22 10:26> Assessment and Plan (1) New onset seizure: Status: Acute <CRISTIAN Robertson - Last Filed: 01/23/22 10:26> (2) Acute hyperglycemia: Status: Acute <CRISTIAN Robertson - Last Filed: 01/23/22 10:26> (3) HTN (hypertension): Status: Acute <CRISTIAN Robertson - Last Filed: 01/23/22 10:26> Assessment and Plan: Patient is a 46 year old male with past medical history significant for insulin-dependent diabetes, glaucoma, HTN, and HLD who was brought to the ED by EMS for evaluation of new-onset seizures. Pt will be admitted to telemetry for further evaluation and workup. # new-onset seizure -- unclear etiology, possibly hyperglycemia or cocaine intoxication -- hyperglycemia on arrival: random glucose of 731, POC of 365 -- tox screen positive for cocaine and benzos (note: received versed intranasal ly from EMT) -- EEG -- neurology concluded unlikely to be onset of epilepsy; should treat with blood glusose control and avoidance of drugs -- pt should not drive for six months -- hold all home meds -- tylenol for pain # chest tightness -- pt complains of not feeling like he can get a full breath with inspiration -- possibly d/t anxiety, which has increased with his seizure experience -- pt also has a history of a cavitary pneumonia in 03/12/2021 -- initial troponin 30.2, repeat essentially flat at 38.2 -- repeat EKG -- repeat CXR # subclinical hypothyroidism -- TSH 7.30, T4 0.87 -- repeat TSH in 6 weeks -- f/u with PCP # NEELA -- etiology unclear, possibly dehydration -- received IVF, hold for now d/t elevated BP -- creatinine improved to 1.49 (initial 2.28) -- follow labs # lactic acidosis, now resolved -- most likely secondary to seizure -- initial lactic acid 5.6, second 1.6 # insulin-dependent diabetes mellitus -- pt came in with hyperglycemia, now better controlled -- hold home meds -- ssi, lantus # hypomagnesmia, resolved -- given Mg 2g IV in ED -- follow labs # HLD -- hold home meds for now # HTN -- BP elevated today -- stop IVF -- amlodipine 10mg Full code Attending: Dr. Villela DVT Prophylaxis: Lovenox Due to ongoing treatment and evaluation of new onset seizures, pt will require continued hospitalization. <CRISTIAN Robertson - Last Filed: 01/23/22 10:26> Patient is a 46 year old male with past medical history significant for insulin-dependent diabetes, glaucoma, HTN, and HLD who was brought to the ED by EMS for evaluation of new-onset seizures. Pt will be admitted to telemetry for further evaluation and workup. # new-onset seizure -- unclear etiology, possibly hyperglycemia or cocaine intoxication -- hyperglycemia on arrival: random glucose of 731, POC of 365 -- tox screen positive for cocaine and benzos (note: received versed intranasally from EMT) -- EEG -- neurology concluded unlikely to be onset of epilepsy; should treat with blood glusose control and avoidance of drugs -- pt should not drive for six months -- hold all home meds -- tylenol for pain # chest tightness -- pt complains of not feeling like he can get a full breath with inspiration -- possibly d/t anxiety, which has increased with his seizure experience -- pt also has a history of a cavitary pneumonia in 03/12/2021 -- initial troponin 30.2, repeat essentially flat at 38.2,repeat EKG changes in inferior leads repeat trops,added echo,cardio eval repeat CXR-? atlectasis/possible mild aspiratioon(considerin seizure episodes): added augmentin for coverage. # subclinical hypothyroidism -- TSH 7.30, T4 0.87 -- repeat TSH in 6 weeks -- f/u with PCP # NEELA -- etiology unclear, possibly dehydration -- received IVF, hold for now d/t elevated BP -- creatinine improved to 1.49 (initial 2.28) -- follow labs #acute lactic acidosis, now resolved -- most likely secondary to seizure -- initial lactic acid 5.6, second 1.6 # insulin-dependent diabetes mellitus -- pt came in with hyperglycemia, now better controlled -- hold home meds -- ssi, lantus # hypomagnesmia, resolved -- given Mg 2g IV in ED -- follow labs # HLD -- hold home meds for now # HTN -- BP elevated today -- stop IVF -- amlodipine 10mg Full code Attending: Dr. Villela DVT Prophylaxis: Lovenox Due to ongoing treatment and evaluation of new onset seizures, pt will require continued hospitalization. <Robert Garcia MD - Last Filed: 01/23/22 13:50> Time Spent With Patient Time: Total time managing care of this patient today ____ minutes. <CRITSIAN Robertson - Last Filed: 01/23/22 10:26> Quality Stroke Does the patient have a stroke diagnosis?: No <CRISTIAN Robertson - Last Filed: 01/23/22 10:26> VTE Prior VTE?: No <CRISTIAN Robertson - Last Filed: 01/23/22 10:26> VTE Risk Level:: Medical - moderate - high <CRISTIAN Robertson - Last Filed: 01/23/22 10:26> VTE Device Contraindication: Treatment Not Indicated <CRISTIAN Robertson - Last Filed: 01/23/22 10:26> VTE Drug Contraindication: N/A - Med Ordered <CRISTIAN Robertson - Last Filed: 01/23/22 10:26>
[2022-01-23 09:34] LABS: Troponin-I High Sensitivity 38.2 ng/L (<3.5-35.0)
--- NOTE | 2022-01-23 09:56 | MHC.CM.PN ---
IMM DELIVERED PT LIVES ALONE IN AN APT. 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 USES CANE AND WALKER NEEDED. NO HCP, DECLINES AT THIS TIME. +COVID VAX X3 PCP DR. BURRIS IN [place]. DP: ANTICIPATE HOME WITH NO SERVICES, FRIEND WILL TRANSPORT.
[2022-01-23 12:21] LABS: Glucose, Whole Blood 205 mg/dL (60-115)
[2022-01-23] MEDS: Enoxaparin Sodium 40 MG/0.4 ML SYRINGE SUBCUT (12:27)
[2022-01-23 14:54] LABS: Troponin-I High Sensitivity 39.9 ng/L (<3.5-35.0)
--- NOTE | 2022-01-23 15:00 | CA_ITS ---
Transthoracic Echocardiogram Patient (Last, First, Middle): Dejan Hull O Gender: Male Date of : 1975 Age: 46 Procedure Date: 01/23/2022 Procedure Type: Transthoracic Echocardiogram [place] [facility] [place]: 172.72 cm Weight: 83.92 kg BSA: 1.98 m2 Heart Rate: bpm BP: 174 / 94 mmHg Furnace Process Supervisor: Referring MD: Robert Garcia MD Symptoms: chest pain Study Quality: Fair ECG Rhythm: Sinus Conclusions: - The left ventricular systolic function is normal. The calculated ejection fraction is 61% by biplane method. - The inferolateral wall and basal inferior segment are hypokinetic. - No obvious valvular pathology seen on this study. Findings Procedure Information Contrast agent, definity, is being given per protocol without apparent complications. Left Ventricle Normal left ventricular cavity size. There is mildly increased left ventricular wall thickness. The left ventricular systolic function is normal. The calculated ejection fraction is 61% by biplane method. E/E prime ratio is >15, consistent with elevated filling pressures. Evidence suggests grade I (mild) diastolic dysfunction. Wall Motion Rest Echo Findings The inferolateral wall and basal inferior segment are hypokinetic. Right Ventricle Normal right ventricular cavity size and systolic function. Atria Both atria are normal in size. Aortic Valve The aortic valve structure and function is likely normal. There is no aortic valve stenosis. There is no aortic valve regurgitation. Mitral Valve The mitral valve appears normal. There is no mitral valve regurgitation. There is no mitral valve stenosis. Pulmonic Valve The pulmonic valve is likely normal. Tricuspid Valve There is trace tricuspid valve regurgitation. There is no evidence of pulmonary hypertension. Great Vessels The asc aorta is normal in size. Venous The inferior vena cava is normal in size and collapses greater than 50% with inspiration. Pericardium/Pleural There is a small loculated pericardial effusion overlying the left atrium and right atrium. Prior Study Comparison No prior study available for comparison. Recommendations, Care & Conclusions No obvious valvular pathology seen on this study. Measurements 2D Linear Measurements IVSd: 1.24 0.6-0.9/0.6-1.0 cm LVIDd: 4.46 3.9-5.3/4.2-5.9 cm LVIDd Index: 2.25 2.4-3.2/2.2-3.1 cm/m2 LVIDs: 3.29 2.0-3.6 cm LVPWd: 1.21 0.7-1.1 cm Ao Root: 3.50 2.1-3.5 cm LA Diam: 3.80 2.7-3.8/3.0-4.0 cm LAIDs Index: 1.92 1.5-2.3 cm/m2 LV Mass: 250.87 67-162/88-224 g LV Mass Index: 126.70 43-95/49-115 g/m2 LVOT Diam: 2.30 3.0+(-)1.3 cm 2D Systolic Function EF 4C: 63.40 >55% EF 2C: 62.20 >55% EF BiP: 61.20 >55% Mitral Valve MV Pk E: 0.96 MV PK A: 0.66 MV Decel Time: 139.00 E/A: 1.50 E'Lateral: 4.46 E'Medial: 5.22 E/E' Med: 18.30 E/E' Lat: 21.40 PHT: 41.00 MVA PHT: 5.[address] [place]: 6.86 Aortic Valve AoV Pk Meet: 1.28 AoV Mn Meet: 0.89 AoV VTI: 0.24 AoV Pk Grad: 7.00 Aov Mn Grad: 4.00 VICENTE Cont.VTI: 3.01 LVOT LVOT Pk Meet: 0.89 LVOT Mn Meet: 0.71 LVOT VTI: 0.17 LVOT Pk Grad: 3.00 LVOT Mn Grad: 2.00 LVOT Diam: 2.30 LVOT Area: 4.15 Diastolic Function MV Pk E: 0.96 MV Pk A: 0.66 E/A: 1.50 E'Medial: 5.22 E/E' Med: 18.30 E' Laterial: 4.46 E/E' Lat: 21.40 Right Ventricle TAPSE (mm): 22.00 TVS' Meet: 12.00 Tricuspid Valve TR Pk Meet: 1.96 TR Pk Grad: 15.00 RA Press: 3.00 RVSP: 18.00 Great Vessels Aorta Ao Root-2D: 3.50 2.0-3.7 cm Ao Asc: 3.30 2.1-3.4 cm Pulmonary Valve PV Pk Meet: 0.97 Peak PV Grad: 4.00 Updated in Other Vendor System with Status of Final Luis Yoon MD electronically signed on 01/24/2022 10:46:01 AM with status of Final
[2022-01-23] MEDS: Albuterol/Iprat 2.5/0.5MG 3 ML AMPUL.NEB INHALE ×2 (15:13→20:58)
[2022-01-23 16:27] LABS: Glucose, Whole Blood 308 mg/dL (60-115)
[2022-01-23] MEDS: Aspirin Enteric Coated 81 MG TABLET.DR PO (16:42)
[2022-01-23] MEDS: hydrALAZINE HCl 25 MG TABLET PO ×2 (16:42→20:44)
[2022-01-23] MEDS: 0.9 % Sodium Chloride Flush 3 ML SYRINGE IVFLUSH ×2 (16:43→20:45)
[2022-01-23] MEDS: Lactated Ringers 1,000 ML 80 ML IVCONT (20:44)
[2022-01-23] MEDS: Insulin Glargine,Hum.rec.anlog 100 UNIT/ML 10 ML VIAL 9 UNIT SUBCUT (20:45)
[2022-01-23 21:09] LABS: Glucose, Whole Blood 275 mg/dL (60-115)
[2022-01-24] MEDS: Acetaminophen 325 MG TABLET 650 MG PO (02:42)
[2022-01-24 04:10] VITALS: BP 186/98; PULSE 87
--- NOTE | 2022-01-24 04:11 | PC.NURSE ---
Addendum entered by Josefa Oliveira RN 01/24/22 07:03: Patient ordered 5mg IV hyralazine adminitered as ordered at 0445. No improvement, patient still c/o headache. BP 180/90 MD notified IV labetolol administered as ordered. 0645 Patient BP 176/80 Patient reports headache improving. Patient is very restless moving around the room and walking the hallway. Will report to oncoming RN Original Note: Patient c/o 7/10 headache given PRN TTylenol. no improvement HR88 SR, BP 188/98 manually. Patient denies any blurred vision or lightheadedness. MD notified and awaiting orders.
[2022-01-24] MEDS: hydrALAZINE HCl 20 MG/ML VIAL 5 MG IVPUSH (04:54)
[2022-01-24] MEDS: Labetalol HCL 100 MG/20 ML VIAL IVPUSH (06:03)
[2022-01-24 06:48] LABS: Anion Gap 13 (12-20); Blood Urea Nitrogen 21 mg/dL (9-16); Calcium 8.3 mg/dL (8.4-10.2); Carbon Dioxide 23 mmol/L (22-29); Chloride 105 mmol/L (96-108); Cholesterol 278 mg/dL; Estimated Glomerular Filt Rate 53; Glucose Random 220 mg/dL (60-115); HDL Cholesterol 57 mg/dL; LDL Cholesterol Calculated 186 mg/dl; Potassium 3.9 mmol/L (3.3-5.1); Sodium 137 mmol/L (135-145); Triglycerides 178 mg/dL
[2022-01-24 07:22] LABS: Glucose, Whole Blood 257 mg/dL (60-115)
[2022-01-24] MEDS: Albuterol/Iprat 2.5/0.5MG 3 ML AMPUL.NEB INHALE ×2 (07:53→11:13)
[2022-01-24 07:54] VITALS: PULSE 88; RESP 18; O2SAT 95
[2022-01-24 08:00] VITALS: BP 164/88; PULSE 86; RESP 20; TEMP 36.6; O2SAT 99
[2022-01-24] MEDS: hydrALAZINE HCl 25 MG TABLET PO (08:08)
[2022-01-24] MEDS: Aspirin Enteric Coated 81 MG TABLET.DR PO (08:08)
[2022-01-24] MEDS: Gabapentin 600 MG TABLET PO (08:08)
[2022-01-24] MEDS: Insulin Lispro 100 UNIT/ML 3 ML VIAL SUBCUT ×2 (08:08→11:59)
[2022-01-24] MEDS: 0.9 % Sodium Chloride Flush 3 ML SYRINGE IVFLUSH (08:08)
[2022-01-24] MEDS: amLODIPine Besylate 10 MG TABLET PO (08:08)
--- NOTE | 2022-01-24 09:49 | MHC.CM.PN ---
PER HOSPITALIST PT MEDICALLY CLEARED FOR D/C W/RESUMP OF END MAKER HRS AND FRIEND FOR TRANSPORT, NO NEW SERVICES ORDERED
--- NOTE | 2022-01-24 10:48 | PM.CNCAR ---
History of Present Illness History of Present Illness Date of Service: 01/24/22 Chief complaint: New-onset seizure Narrative: This is a cardiology consultation regarding chest pain. Patient has a history of insulin-dependent diabetes, hypertension, high lipids and low,. It seems that he was actually brought in for seizures. In this context, he had complained of chest pain and hence we have been asked to see him. Patient denies any history of coronary artery disease myocardial infarction any other cardiac issues. He denies history of any cocaine use but cocaine screen is positive. When I questioned him regarding chest pain, he actually denies any such symptoms. When I repeatedly asked him, he states that when he takes a breath he feels as though he can get enough air but does not feel like any chest pressure or discomfort or anything along those lines. No history of any angina in the past. When he takes a deep breath, he feels as though he can not feel they any air going in. Otherwise, wants to go home. Feels good. Review of Systems Review of Systems: Yes all other systems are reviewed and are negative Constitutional: Constitutional: Reports as per HPI Eyes: Eyes: Reports as per HPI ENT: Reports as per HPI Cardiovascular: Cardiovascular: Reports as per HPI, Denies acrocyanosis, Denies cool extremities, Denies chest pain, Denies leg edema, Denies lightheadedness, Denies palpitations and Denies dyspnea Respiratory: Respiratory: Reports as per HPI, Reports no additional respiratory complaints and Denies dyspnea Gastrointestinal: Gastrointestinal: Reports as per HPI and Reports no additional gastrointestinal complaints Genitourinary: Genitourinary: Reports no additional male genitourinary complaints and Reports as per HPI Musculoskeletal: Musculoskeletal: Reports no additional musculoskeletal complaints and Reports as per HPI Integumentary/Breasts: Skin/Breast: Reports system reviewed and no additional complaints, except as docu Neurologic: Reports system reviewed and no additional complaints, except as documented and Reports as per HPI Psychiatric: Psychiatric: Reports no additional psychiatric complaints and Reports as per HPI Endocrine: Endocrine: Reports no additional endocrine complaints, Reports as per HPI and Denies palpitations Hematologic/Lymphatic: Hematologic/Lymphatic: Reports no additional hematologic/lymphatic complaints and Reports as per HPI Allergic/Immunologic: Allergic/Immunologic: Reports no additional allergic/immunologic complaints and Reports as per HPI [facility] Past Medical History Medical History (Updated 01/24/22 @ 10:52 by Luis Yoon MD) Cavitary lesion of lung Cavitary pneumonia Diabetes HTN (hypertension) Leukemia Lung abscess (01/22/22) Family History Family History Father Diabetes mellitus Social History Social History Household Members Other:: live alone Housing: House Do you presently have visiting nurse or other home services: No Alcohol intake: unknown Patient Tobacco Use Status: Never used Tobacco Smoked in Last 30 Days: No Use of substances other than those prescribed or required for medical reasons: No Currently Displaying Signs/Symptoms of Drug Intoxication Withdrawal: No Have you been hit, kicked, punched, or otherwise hurt by someone within the past year? If so, by whom?: No Do you feel safe in your current relationship?: Yes Is there a partner from a previous relationship who is making you feel unsafe now?: No Are you made to feel afraid or neglected: No Advance Directives: No Advance Directives Information Provided: No Do you have thoughts of harming others: None Recently lost weight without trying: No Poor oral hygiene: No service: No Current occupational status: unemployed Meds Allergies Allergy/AdvReac Type Severity Reaction Status Date / Time No Known Allergies Allergy Verified 03/31/21 04:00 Active Medications: Current Medications Acetaminophen (Acetaminophen 325 Mg Tablet) 650 mg PO Q6H PRN PRN Reason: Pain, Mild (Pain Scale 1-3) Last Admin: 01/24/22 02:42 Dose: 650 mg Albuterol/Ipratropium (Albuterol/Iprat 2.5/0.5mg 3 Ml Ampul.Neb) 3 ml INHALE RQ4H WHILE AWAKE [facility] Last Admin: 01/24/22 07:53 Dose: 3 ml Amlodipine Besylate (Amlodipine Besylate 10 Mg Tablet) 10 mg PO DAILY OFELIA; Protocol Last Admin: 01/24/22 08:08 Dose: 10 mg Aspirin (Aspirin Enteric Coated 81 Mg Tablet.Dr) 81 mg PO DAILY [facility] Last Admin: 01/24/22 08:08 Dose: 81 mg Dextrose (Dextrose 50 % 25 Gm/50 Ml Syringe) 25 gm IVPUSH Q15M PRN; Protocol PRN Reason: per Hypoglycemia Standing Ord. Docusate Sodium (Docusate Sodium 100 Mg Capsule) 100 mg PO DAILY PRN PRN Reason: Constipation Enoxaparin Sodium (Enoxaparin Sodium 40 Mg/0.4 Ml Syringe) 40 mg SUBCUT Q24H [facility] Last Admin: 01/23/22 12:27 Dose: 40 mg Gabapentin (Gabapentin 600 Mg Tablet) 600 mg PO BID [facility] Last Admin: 01/24/22 08:08 Dose: 600 mg Glucose (Glucose Gel 15 Gm Gel..Gram.) 15 gm PO Q15M PRN; Protocol PRN Reason: per Hypoglycemia Standing Ord. Hydralazine HCl (Hydralazine Hcl 25 Mg Tablet) 25 mg PO TID [facility]; Protocol Last Admin: 01/24/22 08:08 Dose: 25 mg Lactated Ringer's (Lr) 1,000 mls @ 80 mls/hr IVCONT .[id number] [facility] Last Infusion: 01/24/22 09:38 Dose: Infused Insulin Glargine (Insulin Glargine,Hum.Rec.Anlog 100 Unit/Ml 10 Ml Vial) 9 unit SUBCUT BEDTIME [facility] Last Admin: 01/23/22 20:45 Dose: 9 unit Insulin Human Lispro (Insulin Lispro 100 Unit/Ml 3 Ml Vial) 0 unit SUBCUT QIDACHS [facility]; Protocol Last Admin: 01/24/22 08:08 Dose: 6 unit Ondansetron HCl (Ondansetron Hcl 4 Mg/2 Ml Vial) 4 mg IVPUSH Q8H PRN PRN Reason: Nausea and Vomiting Sodium Chloride (0.9 % Sodium Chloride Flush 3 Ml Syringe) 3 ml IVFLUSH QSHIFT [facility] Last Admin: 01/24/22 08:08 Dose: 3 ml Home Medications Medication Instructions Recorded Confirmed Last Taken Type amlodipine 5 mg tablet 1 tab PO DAILY 03/31/21 01/22/22 01/20/22 History aspirin 81 mg tablet,delayed 1 tab PO DAILY 03/31/21 01/22/22 01/20/22 History release cyclosporine 0.05 % eye drops in a 1 drp ophthalmic (eye) BID PRN Dry 03/31/21 01/22/22 03/30/21 History dropperette (Restasis) Eye(S) gabapentin 600 mg tablet 1 tab PO BID 03/31/21 01/22/22 01/20/22 History insulin aspart U-100 100 unit/mL See Rx Instructions .Route .COMPLEX 03/31/21 01/22/22 01/20/22 History (3 mL) subcutaneous pen (Novolog Flexpen U-100 Insulin aspart) lisinopril 20 1 tab PO DAILY 03/31/21 01/22/22 01/20/22 History mg-hydrochlorothiazide 25 mg tablet multivitamin 1 tab PO DAILY 03/31/21 01/22/22 01/20/22 History acetaminophen 325 mg tablet 650 mg PO Q6H PRN Pain 01/22/22 01/22/22 Unknown History atorvastatin 10 mg tablet 10 mg PO DAILY 01/22/22 01/22/22 01/20/22 History clotrimazole-betamethasone 1 1 appl topical BID 01/22/22 01/22/22 01/20/22 History %-0.05 % lotion insulin degludec 100 unit/mL (3 12 unit subcut BEDTIME 01/22/22 01/22/22 01/20/22 History mL) subcutaneous pen (Tresiba FlexTouch U-100 insulin) Physical Exam Vital Signs: Vital Signs: Last Vital Signs Temp 97.9 F 01/24/22 08:00 Pulse 86 01/24/22 08:00 Resp 20 01/24/22 08:00 BP 164/88 H 01/24/22 08:00 Pulse Ox 99 01/24/22 08:00 O2 Del Method 01/24/22 08:00 O2 Flow Rate 2 01/23/22 03:08 Oxygen Flow Rate 2 01/22/22 02:15 BMI result Body Mass Index 28.2 Const: General: comfortable and no acute distress Orientation/consciousness: patient oriented x3 HEENT: Other: Unremarkable Head: Yes normal to inspection Neck: Neck: Yes normal visual inspection Chest: Chest palpation & inspection: normal inspection of the chest Resp: Auscultation: clear to auscultation bilaterally Cardio: Palpation: normal PMI Heart sounds: S1 normal heart sound present, S2 normal heart sound present, no gallops, no murmurs and no rubs GI: Palpation (GI): Soft to palpation Back/Spine/Pelvis: Other: unremarkable Skin: General skin exam: no rashes or lesions noted Neuro: General: patient oriented x3 Extrem: General: Yes normal to inspection Psych: Mental Status: mental status grossly normal Objective Labs and Meds Result diagrams: 01/23/22 06:52 01/24/22 06:08 Lab results: Laboratory Results - last 24 hr 01/23/22 01/23/22 01/23/22 12:14 14:17 16:23 Sodium Potassium Chloride Carbon Dioxide Anion Gap BUN Creatinine Estim Creat Clear Calc Estimated GFR POC Glucose 205 H 308 H Random Glucose Calcium Troponin I High Sens 39.9 H Triglycerides Cholesterol LDL Cholesterol, Calc HDL Cholesterol 01/23/22 01/24/22 01/24/22 20:34 06:08 07:15 Sodium 137 Potassium 3.9 Chloride 105 Carbon Dioxide 23 Anion Gap 13 BUN 21 H Creatinine 1.44 H Estim Creat Clear Calc 67.0 Estimated GFR 53 POC Glucose 275 H 257 H Random Glucose 220 H Calcium 8.3 L Troponin I High Sens Triglycerides 178 Cholesterol 278 LDL Cholesterol, Calc 186 HDL Cholesterol 57 ECG Interpretation: EKG with sinus rhythm at 87/Min; cannot exclude old septal infarct; cannot exclude old inferior infarct. Lateral T inversions. Compared to prior EKG from March, the lateral changes not seen then. Imaging Radiologist's impression: Impressions Chest X-Ray 01/23/22 09:29 FINDINGS/IMPRESSION: The study is limited by portable technique and low lung volumes. Right mid lung scarring appears similar compared with one day prior. Patchy bilateral linear densities, left greater than right, appear worse compared with one day prior, suggesting atelectasis, infiltrates, and/or fibrotic changes. The left costophrenic angle is poorly defined, raising suspicion for effusion. No effusion is seen on the right. No pneumothorax is identified. The cardiac silhouette is suboptimally evaluated. The bones and soft tissues appear unremarkable. Assessment and Plan (1) Elevated troponin: Status: Acute (2) New onset seizure: Status: Acute (3) HTN (hypertension): Status: Acute (4) Cocaine abuse: Status: Acute Plan EKG as above shows possible inferior infarct and lateral ST-T changes. Borderline troponin elevation. With regard to labs, renal insufficiency, poorly controlled blood sugars as well as markedly high cholesterol. Positive for cocaine. Echocardiogram with inferior/inferolateral wall motion abnormality. Overall, poorly-controlled diabetes, high lipids, hypertension as well as using cocaine. Suspect underlying coronary disease but doubt any acute plaque rupture. He has absolutely no symptoms at this time to suggest the same. Strongly counseled about 10 days of cocaine advised not use. Otherwise, aggressive management of diabetes and risk factors. Can go up on the amlodipine 10 mg daily. Increase atorvastatin to 80 mg daily. Outpatient follow-up and will need either stress test or cardiac catheterization. Time Spent With Patient Time: Total time managing care of this patient today 70 minutes. Procedures Date of Service Date of Service: 01/24/22
[2022-01-24 11:01] LABS: Glucose, Whole Blood 294 mg/dL (60-115)
[2022-01-24 11:14] VITALS: PULSE 89; RESP 18; O2SAT 96
[2022-01-24 11:18] VITALS: BP 150/76; PULSE 88; RESP 20; TEMP 37.2; O2SAT 99
[2022-01-24] MEDS: Enoxaparin Sodium 40 MG/0.4 ML SYRINGE SUBCUT (11:59)
--- NOTE | 2022-01-24 12:15 | PM.DS ---
DS: Providers Provider Date of Service: 01/24/22 Date of admission: 01/22/22 09:59 Primary care physician: Unknown Physician Consults: 01/22/22 10:04 Consult to Neurology Routine Consulting Provider: [facility] Reason for consultation: New-onset seizure Has provider been notified: No 01/23/22 13:45 Consult to Cardiology Routine Consulting Provider[place] [facility] Reason for consultation: elevated troponins/ekg changes/chest tightness Has provider been notified: No DS: Diagnosis Discharge Diagnosis (1) Elevated troponin: Status: Acute (2) New onset seizure: Status: Acute (3) HTN (hypertension): Status: Acute (4) Cocaine abuse: Status: Acute (5) NEELA (acute kidney injury): Status: Acute (6) Acute hyperglycemia: Status: Acute (7) Hypomagnesemia: Status: Acute DS: Summary Hospital Course Hospital Course: 46 year old male with past medical history significant for insulin-dependent diabetes, glaucoma, HTN, and HLD who was brought to the ED by EMS for evaluation of seizure.? Patient reports that he was sleeping in his room and woke up to get a glass of water.? Patient noted that his legs started shaking uncontrollably and he fell to the floor in an apparent tonic-clonic seizure. Pt could not find his phone so went down to his neighbor's to get help, where he then had another two seizures in front of his neighbors while awaiting EMS. Paramedics report the patient appeared postictal and then went into another tonic-clonic seizure when they were moving him.? EMS administered Versed 2mg intranasally, and measured a POC of 564. Pt notes he was conscious during these episodes and was trying to fight them, but couldn't control his body. He felt tired, dizzy, and confused after each episode. Pt notes his neighbors claim his eyes rolled in the back of his head during episodes. Pt now complains of whole body ache and pain, which he says feels like it is located in his muscles. Also reports feeling anxious and unable to relax. No chest pressure, but has a non-productive cough and feels like he can't get a full breath. Denies any new medications or medication changes. Claims he has been compliant with his medications, including for diabetes management. Denies any use of alcohol or illicit substances. When asked about positive tox screen for cocaine, pt denied any recent use (admits to trying it a few times when much younger). But did note two days ago he was feeling like he had the flu and a friend gave him a small cupful of unknown liquid medicine to make him feel better and help with the pain. Pt says it tasted like cough medicine but does not know what it was. In the ED, Labs were significant for random glucose of 731, POC a 365, lactic acid of 5.6, calcium 7.9, magnesium of 1.4, alk-phos of 255, total protein 5.5, albumin of 2.7. Creatinine was 2.2, and VBG pH was 7.21. Tox screen was positive for benzos and cocaine. EKG was normal sinus rhythm with a prolonged QTc of 491 CT of head no acute intracranial abnormality.? Chest x-ray found evidence for parenchymal scarring, but no new consolidation.? Patient was given 3 L of normal saline, 10 units of insulin x2, and 2 g of IV magnesium.? Patient be admitted to the hospital for further treatment and workup of new onset seizure.? hospital course: Patient was admitted for seizure episodes which were thought to be related to drug use, and uncontrolled diabetic and electrolytic abnormalities-patient improved with supportive care and diabetic medication adjustment as well as electrolyte repletion. Currently seen by neurology recommended no further intervention, patient was strongly advised not to drive. Patient is to get follow-up with PCP and Neurology out patiently for further management. Hypomagnesemia: Repleted and resolved, given limited supply of magnesium outpatient. Monitor renal function and electrolytes outpatient and further need of magnesium use outpatient with PCP. Patient possible has NEELA in the setting of cocaine use and dehydration, also blood pressure medications: Currently NEELA seems to be improving, encouraged for hydration,will hold lisinopril. Amlodipine adjusted to 10 mg as well as continue hydrochlorothiazide: Monitor blood pressure outpatient if needed-may add another I antihypertensive medication outpatient with PCP. Patient also had chest pain in the setting of cocaine use:cad cannot be ruled out, currently seen by Cardiology recommended this factor controls including hypertension-blood pressure medications adjusted, diabetes-insulin adjusted, in addition atorvastatin adjusted. Patient is to follow-up with Cardiology out patiently for further stress versus outpatient cardiac catheterization. Cxr findings d/w Infectious disease -patient is asymptomatic , no fever or antibiotics -cxr possible chronic -defer antibiotics .if if develops any new respiratory symptoms -please call to nearest emergency room for evaluation. Above management discussed with the patient in detail length. Time Spent with Patient Time attestation: Total time managing care of this patient today ____ minutes. Discharge coordination time: Greater than 30 minutes Quality: Safe Use of Opioids Does Pt have an Active Cancer Diagnosis on the Problem List?: No Quality: Stroke Does the patient have a stroke diagnosis?: No Physical Exam Vital Signs: Vital Signs: Last Vital Signs Temp 98.9 F 01/24/22 11:18 Pulse 88 01/24/22 11:18 Resp 20 01/24/22 11:18 BP 150/76 H 01/24/22 11:18 Pulse Ox 99 01/24/22 11:18 O2 Del Method 01/24/22 11:18 O2 Flow Rate 2 01/23/22 03:08 Oxygen Flow Rate 2 01/22/22 02:15 BMI result Body Mass Index 28.2 General: AOx3, no acute distress Resp: CTA bilaterally CVS: S1, S2, RRR GI: +BS, NT, no distention Skin: No rash Neuro: Motor grossly intact Psych: Appropriate affect DS: Data Data Completed and Pending Completed studies during hospitalization [Text1]: Procedures Drainage of Right Upper Lung Lobe, Via Natural or Artificial Opening Endoscopic, Diagnostic (03/31/21) Excision of Right Upper Lung Lobe, Via Natural or Artificial Opening Endoscopic, Diagnostic (03/31/21) Extraction of Right Upper Lobe Bronchus, Via Natural or Artificial Opening Endoscopic, Diagnostic (03/31/21) Labs on day of discharge: Laboratory Results - last 24 hr 01/23/22 01/23/22 01/23/22 12:14 14:17 16:23 Sodium Potassium Chloride Carbon Dioxide Anion Gap BUN Creatinine Estim Creat Clear Calc Estimated GFR POC Glucose 205 H 308 H Random Glucose Calcium Troponin I High Sens 39.9 H Triglycerides Cholesterol LDL Cholesterol, Calc HDL Cholesterol 01/23/22 01/24/22 01/24/22 20:34 06:08 07:15 Sodium 137 Potassium 3.9 Chloride 105 Carbon Dioxide 23 Anion Gap 13 BUN 21 H Creatinine 1.44 H Estim Creat Clear Calc 67.0 Estimated GFR 53 POC Glucose 275 H 257 H Random Glucose 220 H Calcium 8.3 L Troponin I High Sens Triglycerides 178 Cholesterol 278 LDL Cholesterol, Calc 186 HDL Cholesterol 57 01/24/22 10:55 Sodium Potassium Chloride Carbon Dioxide Anion Gap BUN Creatinine Estim Creat Clear Calc Estimated GFR POC Glucose 294 H Random Glucose Calcium Troponin I High Sens Triglycerides Cholesterol LDL Cholesterol, Calc HDL Cholesterol Imaging Chest x-ray: Radiologist's impression: ITS Impressions Head CT 01/22/22 02:45 IMPRESSION: No acute intracranial abnormality including hemorrhage, mass effect, hydrocephalus, or acute territorial edematous infarction. Chest X-Ray 01/22/22 02:50 IMPRESSION: Residual architectural distortion and subpleural thickening in the area of a previously visualized consolidation in the right middle lobe. No new focal airspace opacity. Chest X-Ray 01/23/22 09:29 FINDINGS/IMPRESSION: The study is limited by portable technique and low lung volumes. Right mid lung scarring appears similar compared with one day prior. Patchy bilateral linear densities, left greater than right, appear worse compared with one day prior, suggesting atelectasis, infiltrates, and/or fibrotic changes. The left costophrenic angle is poorly defined, raising suspicion for effusion. No effusion is seen on the right. No pneumothorax is identified. The cardiac silhouette is suboptimally evaluated. The bones and soft tissues appear unremarkable. Discharge Plan Discharge Anticipated Discharge Date/Time: 01/24/22 11:57 Patient Disposition: Home, Self-Care Discharge Diagnosis: seizure episodes ( possible related to hyperglycemia/cacaine), chest pain -need further workup. Referrals: Naomie Ortega MD [Physician] - 2 Weeks (follow up outpatient) Luis Yoon MD [Physician] - 2 Weeks (follow 2 weeks ) Physician,Unknown J [Primary Care Provider] - 1 Week Discharge Medications: New hydrochlorothiazide 25 mg tablet 25 mg PO DAILY Qty: 30 0RF atorvastatin 80 mg tablet 80 mg PO BEDTIME Qty: 30 0RF magnesium 250 mg tablet 250 mg PO DAILY Qty: 5 0RF Continued gabapentin 600 mg tablet 1 tab PO BID aspirin 81 mg tablet,delayed release (DR/EC) 1 tab PO DAILY insulin aspart U-100 [Novolog Flexpen U-100 Insulin] 100 unit/mL (3 mL) insulin pen See Rx Instructions .ROUTE .COMPLEX Rx Instructions: sliding scale cyclosporine [Restasis] 0.05 % dropperette 1 drp ophthalmic (eye) BID PRN (Reason: Dry Eye(S)) multivitamin Tablet 1 tab PO DAILY omeprazole 20 mg capsule,delayed release(DR/EC) 20 mg PO DAILY Qty: 30 0RF clotrimazole-betamethasone 1-0.05 % lotion 1 appl topical BID acetaminophen 325 mg Tablet 650 mg PO Q6H PRN (Reason: Pain) Changed amlodipine 5 mg tablet 10 tab PO DAILY Qty: 60 0RF insulin degludec [Tresiba FlexTouch U-100] 100 unit/mL (3 mL) insulin pen 15 unit SUBCUT BEDTIME Qty: 15 0RF Discontinued lisinopril-hydrochlorothiazide 20-25 mg tablet 1 tab PO DAILY atorvastatin 10 mg tablet 10 mg PO DAILY Discharge Orders: Discharge Order (Routine); Ordered 01/24/22 Ordered By: Robert Garcia Diet: Advance to usual diet Activity on Discharge: As tolerated Stand Alone Forms: Patient Portal Discharge page Other Ambulatory Orders: Basic Metabolic Panel (Routine) Timeframe: 1 Week Facility: [facility] - Location: Laboratory Ordered By: Robert Garcia Magnesium (Routine) Timeframe: 1 Week Facility: [facility] - Location: Laboratory Ordered By: Robert Garcia Care Plan Goals: Patient was admitted for seizure episodes which were thought to be related to drug use, and uncontrolled diabetic and electrolytic abnormalities-patient improved with supportive care and diabetic medication adjustment as well as electrolyte repletion. Currently seen by neurology recommended no further intervention, patient was strongly advised not to drive. Patient is to get follow-up with PCP and Neurology out patiently for further management. Hypomagnesemia: Repleted and resolved, given limited supply of magnesium outpatient. Monitor renal function and electrolytes outpatient and further need of magnesium use outpatient with PCP. Patient possible has NEELA in the setting of cocaine use and dehydration, also blood pressure medications: Currently ENELA seems to be improving, encouraged for hydration,will hold lisinopril. Amlodipine adjusted to 10 mg as well as continue hydrochlorothiazide: Monitor blood pressure outpatient if needed-may add another I antihypertensive medication outpatient with PCP. Patient also had chest pain in the setting of cocaine use:cad cannot be ruled out, currently seen by Cardiology recommended this factor controls including hypertension-blood pressure medications adjusted, diabetes-insulin adjusted, in addition atorvastatin adjusted. Patient is to follow-up with Cardiology out patiently for further stress versus outpatient cardiac catheterization. Cxr findings d/w Infectious disease -patient is asymptomatic , no fever or antibiotics -cxr possible chronic -defer antibiotics .if if develops any new respiratory symptoms -please call to nearest emergency room for evaluation. Above management discussed with the patient in detail length. Health Concerns: As above. Plan of Treatment: As above. Assessment: As above.
--- NOTE | 2022-01-24 13:05 | PC.NURSE ---
Alert and oriented. Denies pain, Vss, afebrile. no acute resp. distress noted. Took all schedule meds as ordered. went over discharge instructions, follow up apt and medications administrations with patient, verbalized understanding back. Left via car with brother.
== END 2022-01-24 13:08 | disposition home or self-care (01) | DRG 918 ==
LOC: HO.ED 05:11 → HO.EDOVER 10:15 → HO.IMC 14:08
PROVIDERS: Admitting Provider Student in an Organized Health Care Education/Training Program; Emergency Provider Emergency Medicine Emergency Medical Services; Visit Provider Internal Medicine
DX: T40.5X1A Poisoning by cocaine, accidental (unintentional), initial encounter (principal); E87.20 Acidosis, unspecified; E11.65 Type 2 diabetes mellitus with hyperglycemia; R56.9 Unspecified convulsions; I10 Essential (primary) hypertension; F14.10 Cocaine abuse, uncomplicated; E86.0 Dehydration; E83.42 Hypomagnesemia; R79.89 Other specified abnormal findings of blood chemistry; N28.9 Disorder of kidney and ureter, unspecified; E03.8 Other specified hypothyroidism; E78.5 Hyperlipidemia, unspecified; Z79.4 Long term (current) use of insulin; Z79.82 Long term (current) use of aspirin; Z79.899 Other long term (current) drug therapy
CPT/HCPCS: 36415; 70450; 71045; 80048; 80053; 80061; 80307; 81001; 82009; 82077; 82550; 82803; 82947; 83605; 83690; 83735; 84439; 84443; 84484; 85025; 85027; 85610; 85730; 87502; 87635; 93005; 93306; 94640; 95816; 99285; J1650; J2250; J3475; Q9957